=== PATIENT | female | born 1970 | race Caucasian/White ===

== ENCOUNTER 2018-07-05 01:00 | Inpatient (IN) | payer SELFPAY ==
[~2018-07-05] VITALS: Ht 152.4 cm; Wt 80.5 kg
[2018-07-05] VITALS (26 sets, daily range): BP systolic 112–143; BP diastolic 61–87; BMI 29.2
[2018-07-05 01:49] LABS: HEMOGLOBIN 8.8 g/dL (12-16); MCH 28.8 pg (26.0-34.0); MCHC 30.3 g/dL (31.0-37.0); MCV 94.8 fL (80.0-100.0); PLATELET COUNT 94 10x3/uL (130-400); RBC 3.06 10x6/uL (4.00-5.40); WBC 2.8 10x3/uL (4.8-10.8)
[2018-07-05 02:15] LABS: ALBUMIN 1.5 g/dL (3.4-5.0); ALKALINE PHOSPHATASE 68 U/L (46-116); ALT (SGPT) 23 U/L (10-68); BILIRUBIN - TOTAL 0.15 mg/dL (0.2-1.3); C-REACTIVE PROTEIN 1.1 mg/dL (0.0-0.9); CALC OSMOLALITY 309 mosm/kg (275-300); CARBON DIOXIDE 21.2 mmol/L (21.0-32.0); CHLORIDE - SERUM 114 mmol/L (98-107); CREATININE - SERUM 3.6 mg/dL (0.6-1.3); GLUCOSE 152 mg/dL (74-106); MAGNESIUM - SERUM 3.1 mg/dL (1.8-2.4); PRO BNP 3208 pg/mL (0-125); PROTEIN - SERUM 5.3 g/dL (6.4-8.2); SODIUM 146 mmol/L (136-145); THYROID STIMULATING HORMONE 3.82 uIU/mL (0.36-3.74); UREA NITROGEN 58 mg/dL (7-18); eGFR NON AFRICAN AMERICAN 14 mL/min (90-120)
[2018-07-05 02:17] LABS: POTASSIUM - SERUM 6.4 mmol/L (3.5-5.1); TROPONIN-I < 0.017 ng/mL (0.000-0.060)
[2018-07-05 02:24] LABS: LYMPHOCYTES 16 % (15-50); MONOCYTES 12 % (2-11); NEUTROPHILS 72 % (40-80)
[2018-07-05 02:25] LABS: PLATELET ESTIMATE DECREASED
[2018-07-05 06:28] LABS: CARBON DIOXIDE 20.8 mmol/L (21.0-32.0); CHLORIDE - SERUM 115 mmol/L (98-107); CREATININE - SERUM 3.6 mg/dL (0.6-1.3); SODIUM 146 mmol/L (136-145); UREA NITROGEN 57 mg/dL (7-18); eGFR NON AFRICAN AMERICAN 14 mL/min (90-120)
[2018-07-05 06:42] LABS: CALC OSMOLALITY 306 mosm/kg (275-300); GLUCOSE 100 mg/dL (74-106); TROPONIN-I < 0.017 ng/mL (0.000-0.060)
[2018-07-05 06:45] LABS: CALCIUM 6.9 mg/dL (8.5-10.1)
[2018-07-05 11:29] LABS: CREATININE - SERUM 3.5 mg/dL (0.6-1.3)
[2018-07-05 11:35] LABS: ANION GAP 13.1 mmol/L (8-16); CALCIUM 6.8 mg/dL (8.5-10.1); POTASSIUM - SERUM 6.1 mmol/L (3.5-5.1)
[2018-07-05 18:34] LABS: % SATURATION 29 % (15-55); IRON 65 ug/dl (35-150); TOTAL IRON BIND CAPACITY 221 ug/dl (260-445); UNSAT IRON BIND CAPACITY 156 ug/dl (150-375)
[2018-07-05 20:23] LABS: CARBON DIOXIDE 23.3 mmol/L (21.0-32.0); CREATININE - SERUM 3.4 mg/dL (0.6-1.3)
[2018-07-05 20:27] LABS: POTASSIUM - SERUM 6.3 mmol/L (3.5-5.1)
[2018-07-05 20:28] LABS: CALCIUM 6.9 mg/dL (8.5-10.1)
[2018-07-06] VITALS (24 sets, daily range): BP systolic 134–159; BP diastolic 81–90; Ht 152.4 cm; Wt 80.5 kg
[2018-07-06 04:33] LABS: HEMATOCRIT 26.6 % (36.0-48.0); HEMOGLOBIN 8.1 g/dL (12-16); MCH 28.2 pg (26.0-34.0); MCHC 30.5 g/dL (31.0-37.0); MEAN PLATELET VOLUME 12.5 fL (7.4-10.4); PLATELET COUNT 104 10x3/uL (130-400); RBC 2.87 10x6/uL (4.00-5.40); RDW 16.7 % (11.5-14.5); WBC 2.7 10x3/uL (4.8-10.8)
[2018-07-06 04:49] LABS: MCV 92.7 fL (80.0-100.0)
[2018-07-06 04:53] LABS: ANION GAP 11.6 mmol/L (8-16); BILIRUBIN - TOTAL 0.24 mg/dL (0.2-1.3); CARBON DIOXIDE 25.8 mmol/L (21.0-32.0); CREATININE - SERUM 3.3 mg/dL (0.6-1.3); POTASSIUM - SERUM 5.4 mmol/L (3.5-5.1); PROTEIN - SERUM 5.1 g/dL (6.4-8.2)
[2018-07-06 04:54] LABS: CALCIUM 6.6 mg/dL (8.5-10.1)
[2018-07-06 05:32] LABS: EOSINOPHILS 2 % (0-7); LYMPHOCYTES 21 % (15-50); MONOCYTES 3 % (2-11); NEUTROPHILS 74 % (40-80); PLATELET ESTIMATE DECREASED
[2018-07-06 06:23] LABS: MAGNESIUM - SERUM 2.9 mg/dL (1.8-2.4); PHOSPHOROUS 5.2 mg/dL (2.5-4.9)
[2018-07-06 11:39] LABS: PATH REVIEW PERIPHERAL SMEAR REVIEWED
--- NOTE | 2018-07-06 17:25 | MORECARE ---
CASE MANAGEMENT DISCHARGE SUMMARY PATIENT: BERNA MARQUEZ UNIT: [id number] ADM DATE: 07/05/18 AGE: 48 : 74 SEX: F ROOM/BED: D.[facility] AUTHOR: JARET SHAY PHYSICIAN: REFERRING PHYSICIAN: KIN CAICEDO MD DATE OF SERVICE: 07/06/18 Discharge Plan Patient Name: BERNA MARQUEZ Facility: [facility]:[place] : 1970 Planned Disposition: Anticipated Discharge Date: Discharge Date: Expected LOS: Initial Reviewer: [email or web address] Initial Review Date: 07/06/2018 Generated: 07/06/18 6:25 pm DCPIA - Discharge Planning Initial Assessment Updated by [email or web address]: Chloe Hampton on 07/06/18 5:25 pm * Is the patient Alert and Oriented? No * How many steps to enter\exit or inside your home? * PCP no PCP * Pharmacy [facility] * Preadmission Environment Home with Family * ADLs Independent * Equipment Wheelchair * List name and contact numbers for known caregivers / representatives who currently or will assist patient after discharge: HENRIQUE CLINTON - FRIEND- [phone] BRITTNEY Villaseñor DAUGHTER- [phone] * Verbal permission to speak to the caregivers and representatives has been obtained from the patient. N/A * Community resources currently utilized None * Additional services required to return to the preadmission environment? No * Can the patient safely return to the preadmission environment? Yes * Has this patient been hospitalized within the prior 30 days at any hospital? No Patient Name: BERNA MARQUEZ Page 66585 at 1725 All edits/amendments must be made on the electronic document DICTATION DATE: 07/06/181724 SMALL ELECTRIC ENGINE TECHNICIAN: STEFAN 07/06/181724 RPT#: [id number] DC DATE: STATUS: ADM IN [facility] [address] [place] [address] END OF REPORT
--- NOTE | 2018-07-06 17:41 | MORECARE ---
CASE MANAGEMENT DISCHARGE SUMMARY PATIENT: BERNA MARQUEZ UNIT: [id number] ADM DATE: 07/05/18 AGE: 48 : 74 SEX: F ROOM/BED: D.2316 AUTHOR: LAURITA,DOC PHYSICIAN: REFERRING PHYSICIAN: KIN CAICEDO MD DATE OF SERVICE: 07/06/18 Discharge Plan Patient Name: BERNA MARQUEZ Facility: [facility]:[place] : 1970 Planned Disposition: Anticipated Discharge Date: Discharge Date: Expected LOS: Initial Reviewer: [email or web address] Initial Review Date: 07/06/2018 Generated: 07/06/18 6:40 pm Comments DCP- Discharge Planning Updated by [email or web address]: Chloe Hampton on 07/06/18 4:[address] Patient Name: BERNA MARQUEZ Admission Status: ER Accout number: [id number] Admission Date: 07-05-2018 : 1970 Admission Diagnosis: Attending: KIN CAICEDO Current LOS: 1 Anticipated DC Date: Planned Disposition: Primary Insurance: UNINSURED DISCOUNT PLAN Discharge Planning Comments: CM met with patients daughter Tanya at bedside. Patient not responsive at this time. Tanya her young daughter is at bedside with her brother. Patients daughter stated that patient lived at home with them. She stated the patient does have a wheelchair. Denies any home health services. Uncertain of disposition at this time. CM will continue to follow and assist as needed with discharge planning / needs. Automated Equipment Engineer Technician: Chloe Hampton DCPIA - Discharge Planning Initial Assessment Updated by [email or web address]: Chloe Hampton on 07/06/18 5:25 pm * Is the patient Alert and Oriented? No * How many steps to enter\exit or inside your home? * PCP no PCP * Pharmacy [facility] * Preadmission Environment Home with Family * ADLs Independent * Equipment Wheelchair * List name and contact numbers for known caregivers / representatives who currently or will assist patient after discharge: HENRIQUE CLINTON - FRIEND- [phone] TANYA Villaseñor DAUGHTER- [phone] * Verbal permission to speak to the caregivers and representatives has been obtained from the patient. N/A * Community resources currently utilized None * Additional services required to return to the preadmission environment? No * Can the patient safely return to the preadmission environment? Yes * Has this patient been hospitalized within the prior 30 days at any hospital? No Last DP export: 07/06/18 4:25 pm Patient Name: BERNA MARQUEZ Page 35827 at 1741 All edits/amendments must be made on the electronic document DICTATION DATE: 07/06/181739 SOLUTION LEAD: DM 07/06/181739 RPT#: [id number] DC DATE: STATUS: ADM IN [facility] [address] [place] [address] END OF REPORT
[2018-07-06 20:03] LABS: T4 THYROXIN - FREE 0.9 ng/dL (0.76-1.46); T4 THYROXINE 5.2 ug/dL (4.7-13.3); THYROID STIMULATING HORMONE 1.63 uIU/mL (0.36-3.74)
[2018-07-06 21:27] LABS: ERYTHROCYTE SEDIMENTATION RATE 12 mm/hr (0-20)
[2018-07-06 21:33] LABS: HEMATOCRIT 26.2 % (36.0-48.0); HEMOGLOBIN 8.1 g/dL (12-16)
[2018-07-06 22:35] LABS: APPEARANCE CLEAR (CLEAR); BILIRUBIN NEGATIVE (NEGATIVE); COLOR STRAW (YELLOW); GLUCOSE 50 mg/dL (NEGATIVE); KETONE NEGATIVE (NEGATIVE); NITRITE NEGATIVE (NEGATIVE); PROTEIN 1+ mg/dL (NEGATIVE); UROBILINOGEN NORMAL (NORMAL)
[2018-07-06 23:09] LABS: CREATININE - URINE 30.5 mg/dL (30-125); PRO/CRE RATIO URINE 6.5 mg/g; PROTEIN - URINE 198.6 mg/dL (0.0-11.9)
[2018-07-07] VITALS (16 sets, daily range): BP systolic 137–163; BP diastolic 74–93
[2018-07-07 00:44] LABS: HEMATOCRIT 24.1 % (36.0-48.0)
[2018-07-07 00:50] LABS: HEMOGLOBIN 7.5 g/dL (12-16)
[2018-07-07 06:01] LABS: ALBUMIN 2.3 g/dL (3.4-5.0); ANION GAP 12.1 mmol/L (8-16); BILIRUBIN - TOTAL 0.38 mg/dL (0.2-1.3); CARBON DIOXIDE 28.8 mmol/L (21.0-32.0); CREATININE - SERUM 3.1 mg/dL (0.6-1.3); POTASSIUM - SERUM 4.9 mmol/L (3.5-5.1); PROTEIN - SERUM 5.2 g/dL (6.4-8.2)
[2018-07-07 06:04] LABS: BASOPHILS 0 % (0-2); EOSINOPHILS 2.5 % (0-7); HEMATOCRIT 27.6 % (36.0-48.0); HEMOGLOBIN 8.6 g/dL (12-16); IMMATURE GRANULOCYTES 0.3 % (0-5); LYMPHOCYTES 13.1 % (15-50); MCH 28.4 pg (26.0-34.0); MCHC 31.2 g/dL (31.0-37.0); MCV 91.1 fL (80.0-100.0); MEAN PLATELET VOLUME 11.5 fL (7.4-10.4); NEUTROPHILS 75.1 % (40-80); PLATELET COUNT 96 10x3/uL (130-400); RBC 3.03 10x6/uL (4.00-5.40); RDW 16.1 % (11.5-14.5); WBC 3.7 10x3/uL (4.8-10.8)
[2018-07-07 06:18] LABS: CALCIUM 6.8 mg/dL (8.5-10.1)
[2018-07-07 07:15] LABS: PLATELET ESTIMATE DECREASED
[2018-07-07 08:22] LABS: FOLATE (FOLIC ACID) - SERUM 11.2 ng/mL (>3.0)
[2018-07-07 10:20] LABS: HEMATOCRIT 33.2 % (36.0-48.0); HEMOGLOBIN 10.5 g/dL (12-16)
[2018-07-07 10:35] LABS: APTT 36.6 SECONDS (22.8-39.4); INR 1.1 (0.85-1.17); PROTIME 13.7 SECONDS (11.6-15.0)
[2018-07-07 14:44] LABS: HEMATOCRIT 31.2 % (36.0-48.0); HEMOGLOBIN 9.9 g/dL (12-16)
[2018-07-07 18:44] LABS: HEMATOCRIT 30.5 % (36.0-48.0); HEMOGLOBIN 9.7 g/dL (12-16)
[2018-07-07 23:16] LABS: HEMATOCRIT 31.2 % (36.0-48.0); HEMOGLOBIN 9.8 g/dL (12-16)
[2018-07-08 03:00] VITALS: BP 155/106
[2018-07-08 04:37] LABS: BASOPHILS 0 % (0-2); EOSINOPHILS 1.7 % (0-7); HEMATOCRIT 32.2 % (36.0-48.0); IMMATURE GRANULOCYTES 0.3 % (0-5); LYMPHOCYTES 15.5 % (15-50); MCH 28.2 pg (26.0-34.0); MCHC 31.1 g/dL (31.0-37.0); MONOCYTES 8.9 % (2-11); NEUTROPHILS 73.6 % (40-80); PLATELET COUNT 77 10x3/uL (130-400); RBC 3.54 10x6/uL (4.00-5.40); RDW 17.6 % (11.5-14.5); WBC 3.6 10x3/uL (4.8-10.8)
[2018-07-08 05:06] LABS: ANION GAP 13.1 mmol/L (8-16); BILIRUBIN - TOTAL 0.36 mg/dL (0.2-1.3); CARBON DIOXIDE 27.2 mmol/L (21.0-32.0); CREATININE - SERUM 2.9 mg/dL (0.6-1.3); POTASSIUM - SERUM 4.3 mmol/L (3.5-5.1); PROTEIN - SERUM 5.6 g/dL (6.4-8.2)
[2018-07-08 05:13] LABS: ALBUMIN 2.7 g/dL (3.4-5.0)
[2018-07-08 09:19] LABS: HEPATITIS C ANTIBODY <0.1 S/CO RAT (0.0-0.9)
[2018-07-08 09:45] VITALS: BP 145/89
[2018-07-08 16:12] LABS: UPE RAND - ALBUMIN 49.2 % (()); UPE RAND - GAMMA GLOBULIN 15.9 % (())
[2018-07-08 16:12] LABS: SPE - A/G RATIO 1.2 (0.7-1.7); SPE - ALBUMIN 2.7 g/dL (2.9-4.4); SPE - ALPHA-1 GLOBULIN 0.3 g/dL (0.0-0.4); SPE - ALPHA-2 GLOBULIN 0.4 g/dL (0.4-1.0); SPE - BETA GLOBULIN 0.6 g/dL (0.7-1.3); SPE - GAMMA GLOBULIN 0.9 g/dL (0.4-1.8); SPE - M-SPIKE Not Observed g/dL (Not Observed); SPE - TOTAL PROTEIN 4.9 g/dL (6.0-8.5)
[2018-07-08 20:00] VITALS: BP 148/74
[2018-07-09] VITALS (20 sets, daily range): BP systolic 147–178; BP diastolic 56–85
[2018-07-09 05:34] LABS: BASOPHILS 0.2 % (0-2); EOSINOPHILS 1.5 % (0-7); HEMATOCRIT 32.8 % (36.0-48.0); HEMOGLOBIN 10.2 g/dL (12-16); IMMATURE GRANULOCYTES 0.2 % (0-5); LYMPHOCYTES 11.1 % (15-50); MCH 28.7 pg (26.0-34.0); MCHC 31.1 g/dL (31.0-37.0); MCV 92.4 fL (80.0-100.0); MEAN PLATELET VOLUME 9.9 fL (7.4-10.4); MONOCYTES 10.7 % (2-11); NEUTROPHILS 76.3 % (40-80); RBC 3.55 10x6/uL (4.00-5.40); RDW 17.4 % (11.5-14.5)
[2018-07-09 05:35] LABS: WBC 4.6 10x3/uL (4.8-10.8)
[2018-07-09 05:36] LABS: PLATELET COUNT 48 10x3/uL (130-400)
[2018-07-09 05:49] LABS: ALBUMIN 2.4 g/dL (3.4-5.0); ANION GAP 15.7 mmol/L (8-16); BILIRUBIN - TOTAL 0.36 mg/dL (0.2-1.3); CALCIUM 7.5 mg/dL (8.5-10.1); CARBON DIOXIDE 26.5 mmol/L (21.0-32.0); CREATININE - SERUM 2.8 mg/dL (0.6-1.3); POTASSIUM - SERUM 4.2 mmol/L (3.5-5.1); PROTEIN - SERUM 5.4 g/dL (6.4-8.2)
[2018-07-09 06:44] LABS: PLATELET ESTIMATE DECREASED
[2018-07-09 10:32] LABS: HEMOGLOBIN 10.1 g/dL (12-16)
[2018-07-09 11:40] LABS: AMYLASE - SERUM 39 U/L (25-115); LIPASE 88 U/L (73-393)
--- NOTE | 2018-07-09 12:22 | EC ---
PATIENT:BERNA MARQUEZ DATE OF SERVICE: 07/05/18 SEX: F MEDICAL RECORD: [id number] DATE OF : 74 LOCATION:[place] [address] AGE OF PATIENT: 48 ADMISSION DATE: 07/05/18 REFERRING PHYSICIAN: INTERPRETING PHYSICIAN: KALEE VASQUES MD ECHOCARDIOGRAM REPORT ECHO CHARGES 4 ECHO COMPLETE Date: 07/05/18 CLINICAL DIAGNOSIS: ECHOCARDIOGRAPHIC MEASUREMENTS (adult normal given) AC root (d.<3.7cm) 2.7 cm LV Septum d (<1.2 cm> 1.7 cm Valve Excursion 1.6 cm LV Septum (systole) 2.0 cm Left Atria (s.<4.0cm> 4.0 cm LVPW d(<1.2cm) 1.2 cm RV (d.<2.3cm) 2.4 cm LVPW (sytole) 2.5 cm LV diastole(<5.6CM) 5.3 cm MV E-F(>70mm/sec) cm LV systole 1.7 cm LVOT Diameter 1.7 cm MV exc.(>10mm) cm Est.ejection fraction (50-75%) % DOPPLER: LVIT cm/sec A 79 cm/sec E 121 cm/sec LA cm/sec RVSP 39.7 mmHg LVOT 99 cm/sec AOP1/2T m/s Asc. Ao 153 cm/sec RVOT 57 cm/sec RA cm/sec PA 70 cm/sec AV Gradient Peak 9.3 mmHg AV Mean 4.4 mmHg AV Area 1.5 cm MV Gradient Peak 6.4 mmHg MV Mean 2.4 mmHg MV Area cm COMMENTS: Senior Engineering Manager: Yessica CALL Pouch Maker: 3 Dr. Lovett TAPE# PACS Pericardial Effusion Y DATE OF SERVICE: Adequate 2D, color flow and spectral Doppler, and M-mode. LVH present. LV internal dimensions normal. Wall motion is normal. EF is greater than 55%. Aortic valve sclerosis without stenosis by Doppler interrogation. Left atrium upper limits of normal 4.0 cm. Mitral valve shows no prolapse. Ktyq-hw-belmzykw MR. Right-sided chambers grossly normal. Moderate TR. ECHOCARDIOGRAM REPORT [id number] BERNA MARQUEZ TRANSINT:[id number] Voice Confirmation ID: [id number] DOCUMENT ID: [id number] KALEE VASQUES MD at 1222 CC: [id number] DICTATION DATE: 07/06/1834 B2B OUTSIDE SALES REPRESENTATIVE: 07/06/18 09 ADM IN [place] [id number] [place] [id number]
[2018-07-09 13:00] LABS: APTT 36.4 SECONDS (22.8-39.4)
[2018-07-09 13:15] LABS: INR 1.15 (0.85-1.17); PROTIME 14.1 SECONDS (11.6-15.0)
[2018-07-09 15:14] LABS: ANION GAP 13.8 mmol/L (8-16); CALCIUM 7.5 mg/dL (8.5-10.1); CARBON DIOXIDE 26.1 mmol/L (21.0-32.0); CREATININE - SERUM 2.6 mg/dL (0.6-1.3); POTASSIUM - SERUM 3.9 mmol/L (3.5-5.1)
--- NOTE | 2018-07-09 19:01 | MORECARE ---
CASE MANAGEMENT DISCHARGE SUMMARY PATIENT: BERNA GARCIA UNIT: [id number] ADM DATE: 07/05/18 AGE: 48 : 74 SEX: F [facility] AUTHOR: LAURITA,DOC PHYSICIAN: REFERRING PHYSICIAN: KIN CAICEDO MD DATE OF SERVICE: 07/09/18 Discharge Plan Patient Name: BERNA GARCIA Facility: [facility]:[place] : 1970 Planned Disposition: Anticipated Discharge Date: Discharge Date: Expected LOS: Initial Reviewer: [email or web address] Initial Review Date: 07/06/2018 Generated: 07/09/18 8:01 pm Comments DCP- Discharge Planning Updated by [email or web address]: Chloe Hampton on 07/09/18 5:[address] CM notified that patient has referral for rehab for patient. Patient doesn't have any insurance will have difficulty finding placement. Patient has two minor children that lives with her. The patient and the minors are the only ones living in the home. Patients is incarcerated currently. Patients dynamometer tester engine has been bringing the children up to stay with patient. Shoe Shiner has been instructed that the minors can't be left at facility. CM will continue to follow and assist as needed with discharge planning / needs. DCP- Discharge Planning Updated by [email or web address]: Chloe Hampton on 07/06/18 4:[address] Patient Name: BENRA MARQUEZ Admission Status: ER Accout number: [id number] Admission Date: 07-05-2018 : 1970 Admission Diagnosis: Attending: KIN CAICEDO Current LOS: 1 Anticipated DC Date: Planned Disposition: Primary Insurance: UNINSURED DISCOUNT PLAN Discharge Planning Comments: CM met with patients daughter Tanya at bedside. Patient not responsive at this time. Nixxie her young daughter is at bedside with her brother. Patients daughter stated that patient lived at home with them. She stated the patient does have a wheelchair. Denies any home health services. Uncertain of disposition at this time. CM will continue to follow and assist as needed with discharge planning / needs. Surveyor Hydrographic: Chloe Hampton DCPIA - Discharge Planning Initial Assessment Updated by [email or web address]: Chloe Berta on 07/06/18 5:25 pm * Is the patient Alert and Oriented? No * How many steps to enter\exit or inside your home? * PCP no PCP * Pharmacy [facility] * Preadmission Environment Home with Family * ADLs Independent * Equipment Wheelchair * List name and contact numbers for known caregivers / representatives who currently or will assist patient after discharge: HENRIQUE CLINTON - CAROLINE- [phone] TANYA SERNA- [phone] * Verbal permission to speak to the caregivers and representatives has been obtained from the patient. N/A * Community resources currently utilized None * Additional services required to return to the preadmission environment? No * Can the patient safely return to the preadmission environment? Yes * Has this patient been hospitalized within the prior 30 days at any hospital? No Last DP export: 07/06/18 4:40 pm Patient Name: BERNA GARCIA Page 21310 at 1901 All edits/amendments must be made on the electronic document DICTATION DATE: 07/09/181900 TEACHER OF THE DEAF/HARD OF HEARING: STEFAN 07/09/181900 RPT#: [id number] DC DATE: STATUS: ADM IN [facility] [address] [place] [address] END OF REPORT
[2018-07-10] VITALS (24 sets, daily range): BP systolic 140–183; BP diastolic 62–78
[2018-07-10 03:25] LABS: BASOPHILS 0.3 % (0-2); EOSINOPHILS 2.1 % (0-7); HEMATOCRIT 31.9 % (36.0-48.0); HEMOGLOBIN 9.7 g/dL (12-16); LYMPHOCYTES 13.5 % (15-50); MCH 28.6 pg (26.0-34.0); MCHC 30.4 g/dL (31.0-37.0); MCV 94.1 fL (80.0-100.0); MEAN PLATELET VOLUME 11.3 fL (7.4-10.4); MONOCYTES 12.7 % (2-11); NEUTROPHILS 71.4 % (40-80); PLATELET COUNT 76 10x3/uL (130-400); RBC 3.39 10x6/uL (4.00-5.40); RDW 17.4 % (11.5-14.5); WBC 3.9 10x3/uL (4.8-10.8)
[2018-07-10 03:41] LABS: ALBUMIN 2.8 g/dL (3.4-5.0); ANION GAP 15.6 mmol/L (8-16); BILIRUBIN - TOTAL 0.43 mg/dL (0.2-1.3); CALCIUM 7.7 mg/dL (8.5-10.1); CREATININE - SERUM 2.7 mg/dL (0.6-1.3); POTASSIUM - SERUM 3.6 mmol/L (3.5-5.1); PROTEIN - SERUM 5.7 g/dL (6.4-8.2)
[2018-07-10 08:16] LABS: RAPID PLASMA REAGIN Non Reactive (Non Reactive)
[2018-07-10 14:12] LABS: CA125 169.4 U/mL (0.0-38.1); CEA 1.2 ng/mL (0.0-4.7)
[2018-07-10] MEDS ORDERED: METOPROLOL TART50 MG PO (16:42)
[2018-07-10] MEDS ORDERED: NORVASC10 MG PO (16:43)
[2018-07-10] MEDS ORDERED: LASIX20 MG PO (16:44)
[2018-07-10] MEDS ORDERED: GLIMEPIRIDE4 MG PO (16:45)
[2018-07-10] MEDS ORDERED: CENTRUM SILVER1 EAC3 PO (16:46)
[2018-07-10] MEDS ORDERED: ADVIL200 MG PO (16:46)
[2018-07-10] MEDS ORDERED: PEPTO-BISMOL262 M1 PO (16:48)
[2018-07-10] MEDS ORDERED: COMBIGAN OPHT DR5 ML EACH EYE (16:48)
--- NOTE | 2018-07-10 17:16 | MORECARE ---
CASE MANAGEMENT DISCHARGE SUMMARY PATIENT: BERNA GARCIA UNIT: [id number] ADM DATE: 07/05/18 AGE: 48 : 74 SEX: F ROOM/BED: [facility] AUTHOR: LAURITA,DOC PHYSICIAN: REFERRING PHYSICIAN: KIN CAICEDO MD DATE OF SERVICE: 07/10/18 Discharge Plan Patient Name: BERNA GARCIA Facility: [facility]:[place] : 1970 Planned Disposition: Anticipated Discharge Date: Discharge Date: Expected LOS: Initial Reviewer: [email or web address] Initial Review Date: 07/06/2018 Generated: 07/10/18 6:16 pm Comments DCP- Discharge Planning Updated by [email or web address]: Joanne Garrison on 07/10/18 4:[address] Patient is unable to sign the Patient Choice form for choices of transfer. (patient's son) Shanthi Novoa signed The Patient Choice form with #1 [facility] and #2 [facility] for a higher level of care. Nursing has contacted the facilities for transfer. Joanne Garrison RN CM DCP- Discharge Planning Updated by [email or web address]: Chloe Hampton on 07/09/18 5:[address] CM notified that patient has referral for rehab for patient. Patient doesn't have any insurance will have difficulty finding placement. Patient has two minor children that lives with her. The patient and the minors are the only ones living in the home. Patients is incarcerated currently. Patients crystal grower has been bringing the children up to stay with patient. Language Tutor has been instructed that the minors can't be left at facility. CM will continue to follow and assist as needed with discharge planning / needs. DCP- Discharge Planning Updated by [email or web address]: Chloe Hampton on 07/06/18 4:[address] Patient Name: BERNA MARQUEZ Admission Status: ER Accout number: [id number] Admission Date: 07-05-2018 : 1970 Admission Diagnosis: Attending: KIN CAICEDO Current LOS: 1 Anticipated DC Date: Planned Disposition: Primary Insurance: UNINSURED DISCOUNT PLAN Discharge Planning Comments: CM met with patients daughter Nixxie at bedside. Patient not responsive at this time. Nixxie her young daughter is at bedside with her brother. Patients daughter stated that patient lived at home with them. She stated the patient does have a wheelchair. Denies any home health services. Uncertain of disposition at this time. CM will continue to follow and assist as needed with discharge planning / needs. Qlikview Developer: Chloe Hampton DCPIA - Discharge Planning Initial Assessment Updated by [email or web address]: Chloe Hampton on 07/06/18 5:25 pm * Is the patient Alert and Oriented? No * How many steps to enter\exit or inside your home? * PCP no PCP * Pharmacy [facility] * Preadmission Environment Home with Family * ADLs Independent * Equipment Wheelchair * List name and contact numbers for known caregivers / representatives who currently or will assist patient after discharge: HENRIQUE CLINTON - FRIEND- [phone] BRITTNEY - DAUGHTER- [phone] * Verbal permission to speak to the caregivers and representatives has been obtained from the patient. N/A * Community resources currently utilized None * Additional services required to return to the preadmission environment? No * Can the patient safely return to the preadmission environment? Yes * Has this patient been hospitalized within the prior 30 days at any hospital? No Last DP export: 07/09/18 6:01 pm Patient Name: BERNA GARCIA Page 76207 at 1716 All edits/amendments must be made on the electronic document DICTATION DATE: 07/10/181715 SUBMARINE DIVER: STEFAN 07/10/181715 RPT#: [id number] DC DATE: STATUS: ADM IN [facility] [address] [place] [address] END OF REPORT
[2018-07-11] VITALS: BP 175/73
[2018-07-12 11:14] LABS: CRYPTOCOCCUS AG - SERUM Negative (Negative)
[2018-07-12 12:12] LABS: ANA REFLEX - DIRECT Negative (Negative)
[2018-07-12 13:13] LABS: WNVS - IGG Negative (Negative); WNVS - IGM Negative (Negative)
--- NOTE | 2018-07-12 14:37 | MORECARE ---
CASE MANAGEMENT DISCHARGE SUMMARY PATIENT: BERNA GARCIA UNIT: [id number] ADM DATE: 07/05/18 AGE: 48 : 74 SEX: F ROOM[facility]ED: [facility] AUTHOR: LAURITA,DOC PHYSICIAN: REFERRING PHYSICIAN: KIN CAICEDO MD DATE OF SERVICE: 07/12/18 Discharge Plan Patient Name: BERNA GARCIA Facility: [facility]:[place] : 1970 Planned Disposition: Anticipated Discharge Date: Discharge Date: 07/11/2018 Expected LOS: Initial Reviewer: [email or web address] Initial Review Date: 07/06/2018 Generated: 07/12/18 3:37 pm Comments DCP- Discharge Planning Updated by [email or web address]: Joanne Garrison on 07/10/18 4:[address] Patient is unable to sign the Patient Choice form for choices of transfer. (patient's son) Shanthi Novoa signed The Patient Choice form with #1 [facility] and #2 [facility] for a higher level of care. Nursing has contacted the facilities for transfer. Joanne Garrison RN CM DCP- Discharge Planning Updated by [email or web address]: Chloe Hampton on 07/09/18 5:[address] CM notified that patient has referral for rehab for patient. Patient doesn't have any insurance will have difficulty finding placement. Patient has two minor children that lives with her. The patient and the minors are the only ones living in the home. Patients is incarcerated currently. Patients superior court clerk has been bringing the children up to stay with patient. Customer Program Manager has been instructed that the minors can't be left at facility. CM will continue to follow and assist as needed with discharge planning / needs. DCP- Discharge Planning Updated by [email or web address]: Chloe Hampton on 07/06/18 4:[address] Patient Name: BERNA MARQUEZ Admission Status: ER Accout number: [id number] Admission Date: 07-05-2018 : 1970 Admission Diagnosis: Attending: KIN CAICEDO Current LOS: 1 Anticipated DC Date: Planned Disposition: Primary Insurance: UNINSURED DISCOUNT PLAN Discharge Planning Comments: CM met with patients daughter Tanya at bedside. Patient not responsive at this time. Tanya her young daughter is at bedside with her brother. Patients daughter stated that patient lived at home with them. She stated the patient does have a wheelchair. Denies any home health services. Uncertain of disposition at this time. CM will continue to follow and assist as needed with discharge planning / needs. Recovery Assistant: Chloe BUCKLEY - Discharge Planning Initial Assessment Updated by [email or web address]: Chloe Hampton on 07/06/18 5:25 pm * Is the patient Alert and Oriented? No * How many steps to enter\exit or inside your home? * PCP no PCP * Pharmacy [facility] * Preadmission Environment Home with Family * ADLs Independent * Equipment Wheelchair * List name and contact numbers for known caregivers / representatives who currently or will assist patient after discharge: HENRIQUE CLINTON - CAROLINE- [phone] TANYA Villaseñor DAUGHTER- [phone] * Verbal permission to speak to the caregivers and representatives has been obtained from the patient. N/A * Community resources currently utilized None * Additional services required to return to the preadmission environment? No * Can the patient safely return to the preadmission environment? Yes * Has this patient been hospitalized within the prior 30 days at any hospital? No Coverage Notice Reviewer: [email or web address] Kasi Garrison Notice Issued Date-Time: 07/12/2018 10:40 Notice Type: Patient Choice Letter Notice Delivered To: Family Member Relationship to Patient: Child No Finc Resp Manager Labor Relations Name: Shanthi Novoa Delivery Method: HAND - Hand Delivered Janette Days: Prior Verbal Notification: Recipient Understood Notice: Recipient Signature: Med Rec Note Co-signed by Attending: Coverage Notice Comment: Last DP export: 07/10/18 4:16 pm Patient Name: BERNA GARCIA Page 80703 at 1437 All edits/amendments must be made on the electronic document DICTATION DATE: 07/12/181435 EMPLOYEE BENEFITS DIRECTOR: STEFAN 07/12/181435 RPT#: [id number] DC DATE:07/11/18 STATUS: DIS IN [facility] [address] [place] [address] END OF REPORT
[2018-07-12 15:16] LABS: LUPUS - INTERPRETATION Comment: (()); LUPUS - dRVVT 41.8 sec (0.0-47.0); PTT-LA 47.8 sec (0.0-51.9)
[2018-07-13 03:10] LABS: RMSF IGM 0.56 index (0.00-0.89)
[2018-07-13 10:18] LABS: VIABILITY: 98% (())
== END 2018-07-11 02:16 | disposition short-term general hospital (02) | DRG 682 ==
LOC: D.ER 01:00 → D.ICU 04:51 → D.CVICU 04:51 → D.EDHOLD 04:51 → D.ICU 07:00 → D.M2 07-08 07:57 → D.CVICU 07-09 03:46
PROVIDERS: Family Medicine; Internal Medicine; Internal Medicine Hematology & Oncology; Internal Medicine Nephrology; Internal Medicine Pulmonary Disease; Specialist; ADMIT Internal Medicine Nephrology
DX: N17.9 Acute kidney failure, unspecified (principal); G93.41 Metabolic encephalopathy; R53.2 Functional quadriplegia; R18.8 Other ascites; J90 Pleural effusion, not elsewhere classified; G93.40 Encephalopathy, unspecified; D61.818 Other pancytopenia; E87.2 Acidosis; E87.0 Hyperosmolality and hypernatremia; E87.5 Hyperkalemia; E87.70 Fluid overload, unspecified; E88.09 Other disorders of plasma-protein metabolism, not elsewhere classified; E83.51 Hypocalcemia; E11.65 Type 2 diabetes mellitus with hyperglycemia; H54.8 Legal blindness, as defined in USA; R68.0 Hypothermia, not associated with low environmental temperature; Z78.1 Physical restraint status; E11.319 Type 2 diabetes mellitus with unspecified diabetic retinopathy without macular edema; R40.2364 Coma scale, best motor response, obeys commands, 24 hours or more after hospital admission; R40.2134 Coma scale, eyes open, to sound, 24 hours or more after hospital admission; R40.2244 Coma scale, best verbal response, confused conversation, 24 hours or more after hospital admission; D64.9 Anemia, unspecified

== ENCOUNTER 2018-07-27 20:02 | Inpatient (IN) | payer SELFPAY ==
[~2018-07-27] VITALS: Ht 152.4 cm; Wt 62.8 kg
--- NOTE | ~2018-07-27 | HEMODYNAMI ---
PATIENT:BERNA GARCIA MEDICAL RECORD: [id number] : 74 LOCATION:D.MS Winter2230 ADMISSION DATE: 07/27/18 Generatedon:08/13/201812:51 Patient name: BERNA GARCIA Patient #: [id number] SSN: : 1970 Date of study: 08/13/2018 Page: Of Hemodynamic Procedure Report Patient Data Patient Demographics Procedure consent was obtained First Name: BERNA Gender: Female Last Name: JOSE : 1970 Patient #: [id number] Age: 48 year(s) Race: Unknown Additional ID: [id number] Contact details Address: [address] [place] [address] [place] [place] [facility] Zip code: [address] Admission Admission Data Admission Date: 07/27/2018 Admission Time: 22:52 Room #: D.2230 Procedure Procedure Types Cath Procedure Diagnostic Procedure RAYMOND Procedure Description Procedure Date Procedure Date: 08/13/2018 Procedure Start Time: 12:43 Procedure End Time: 12:48 Procedure Staff Name Function Mich Aguero MD Performing Physician Jody Dudley RN Nurse Marcio Ness RT Monitor Pedro Cartagena Lieutenant Fire Fighter Mynor Smith MD Additional personnel Procedure Data Cath Procedure Fluoroscopy Diagnostic fluoroscopy Total fluoroscopy Time: 0 time: 0 min min Diagnostic fluoroscopy Total fluoroscopy dose: 0 dose: 0 mGy mGy Contrast Material Contrast Material Type Amount (ml) Isovue 300 0 Estimated blood loss: 10 ml Procedure Complications No complications Procedure Medications Medication Administration Route Dosage 0.9% NaCl I.V. 100 ml/hr Oxygen etCO2 Nasal cannula 6 l/min Hurricaine [place] P.O. 2 Sprays Refer to Anesthesia Notes for Sedation Medications Hemodynamics Rest Heart Rate: 80 (bpm) Snapshots Pre Cath Intra NCS Post Cath Vital Signs Time Heart Resp SPO2 etCO2 NIBP (mmHg) Rhythm Pain Sedation Rate (ipm) (%) (mmHg) Status Level (bpm) 12:37:41 83 16 100 40.8 142/79(121) NSR 0 (11) 10(A) , No pain 12:41:57 69 15 100 22.7 129/69(107) NSR 0 (11) 10(A) , No pain 12:46:17 67 16 100 31.7 130/70(111) NSR 0 (11) 10(A) , No pain Medications Time Medication Route Dose Verified Delivered Reason Notes Effectiv eness by by 12:36:37 0.9% NaCl I.V. 100 Mich Jody used for ml/hr St Wan Dudley procedure MD KIM 12:36:50 Oxygen etCO2 6 Mich Jody used for Nasal l/min St Wan Dudley procedure cannula MD KIM 12:37:08 Hurricaine P.O. 2 Mich Jody used for Encino Sprays St Wan Dudley procedure MD KIM 12:37:12 Refer to Michlanden Vera Anesthesia St Wan Dudley Notes for MD KIM Sedation Medications Procedure Log Time Note 11:45:08 Marcio MAR(R) sent for patient. Start room use. 11:46:28 Time tracking: Regular hours (M-F 7:00 - 5:00) 11:47:33 Plan of Care:Hemodynamics will remain stable., Cardiac rhythm will remain stable., Comfort level will be maintained., Respiratory function will remain adequate., Patient/ family verbilizes understanding of procedure., Procedure tolerated without complication., Recovers from procedure without complications.. 12:20:07 Patient arrived from Med/Surg to CCL 3. Patient remains on bed/stretcher for procedure. 12:20:11 Pedro Cartagena Cadet Deck present for RAYMOND. 12:20:59 MARVIN Cates CRNA present for procedure. 12:20:59 Mynor Smith MD present and monitoring patient for TIVA. 12:36:27 Vital chart was started 12:36:37 0.9% NaCl 100 ml/hr I.V. was administered by Jody Dudley RN; used for procedure; 12:36:50 Oxygen 6 l/min etCO2 Nasal cannula was administered by Jody Dudley RN; used for procedure; 12:37:08 Hurricaine [place] 2 Sprays P.O. was administered by Jody Dudley RN; used for procedure; 12:37:12 Refer to Anesthesia Notes for Sedation Medications was administered by Jody Luis Enrique RN; ; 12:38:12 Warm blankets applied, and jacqui hugger turned on for patient comfort. 12:38:12 Correct patient and procedure confirmed by team. 12:38:13 Signed procedure consent form obtained from patient. 12:38:14 ECG and BP/O2 sat monitors applied to patient. 12:38:23 Baseline sample Acquired. 12:38:28 Rhythm: sinus rhythm 12:38:33 Full Disclosure recording started 12:38:44 H&P Date Dictated: 08/12/2018 Within 30 days and on chart.. 12:38:45 Pre-procedure instructions explained to patient. 12:38:45 Pre-op teaching completed and patient verbalized understanding. 12:38:51 Family unavailable. 12:38:53 Patient NPO since Midnight. 12:39:02 Is the patient allergic to Iodine/contrast media? No. 12:39:04 Is patient on blood thinner?No 12:39:06 Patient diabetic? No. 12:39:09 Previous problem with sedation/anesthesia? No ? 12:39:10 Snore? No 12:39:11 Sleep apnea? No 12:39:12 Deviated septum? No 12:39:13 Opens mouth fully? Yes 12:39:13 Sticks out tongue? Yes 12:39:15 Airway obstruction? No ? 12:39:18 Dentures? No ? 12:39:21 Patient pain scale 0/10 ?. 12:39:26 IV patent on arrival in left wrist with 0.9% NaCl at O. 12:40:09 Lab results completed and on chart. 12:40:13 Alarms reviewed by Tanya Jauregui 12:40:14 --------ALL STOP TIME OUT------ 12:40:15 Final Timeout: patient, procedure, and site verified with staff and physician. All members of the team are in agreement. 12:40:43 Fire Safety Assessment: B--The operative or invasive procedure is being performed above the xiphoid process or in the oropharynx., E--There are other possible contributors. 12:40:48 Physical assessment completed. ASA score P 4 - A patient with severe systemic disease that is a constant threat to life as per Mich Aguero MD. 12:40:52 Sedation plan: TIVA Medication:Versed, Fentanyl 12:43:07 Procedure started. 12:43:22 RAYMOND started. 12:45:10 RAYMOND completed. 12:45:14 Procedure ended.(Physican Out) 12:45:58 Fluoroscopy time 00.00 minutes. 12:45:59 Fluoroscopy dose: 0 mGy 12:45:59 Flurop Dose total: 0 12:46:02 Contrast amount:Isovue 300 0ml. 12:46:11 Post-procedure physical assessment completed. ASA score P 4 - A patient with severe systemic disease that is a constant threat to life as per Mich Aguero MD. 12:46:14 Post procedure rhythm: unchanged. 12:46:17 Estimated blood loss: 10 ml 12:46:19 Post procedure instruction explained to patient.Patient verbalizes understanding. 12:46:19 Patient needs reinforcement of post procedure teaching. 12:46:34 Procedure and supply charges have been captured, reviewed, submitted and are correct. 12:46:37 Procedure Complication : No complications 12:46:40 Vital chart was stopped 12:46:46 See physician's report for complete and final results. 12:47:06 Report given to Med/Surg. 12:48:36 Patient transfered to Med/Surg with Bed. 12:48:40 Procedure ended. 12:48:40 Full Disclosure recording stopped 12:48:45 End room use (Document Last) Signature Audit [place] Stage Time Signature Unsigned Intra-Procedure 08/13/2018 Marcio Ness 12:51:23 PM RT(R) Signatures Monitor : Marcio Ness RT Signature : Date : Time : [facility] [address] [place] [address]
[~2018-07-27 20:02] MED LIST: ADVIL200 MG PO; CENTRUM SILVER1 EAC3 PO; COMBIGAN OPHT DR5 ML EACH EYE; GLIMEPIRIDE4 MG PO; LASIX20 MG PO; METOPROLOL TART50 MG PO; NORVASC10 MG PO; PEPTO-BISMOL262 M1 PO
--- NOTE | 2018-07-27 22:40 | NUR ---
PT TRANSFER TO FLOOR VIA EMS FROM [facility]. DISORIENTED X4, NONRESPONSIVE TO STERNUM RUB, NONVERBAL. DOES NOT RESPOND TO HER YOCHA DEHE TOUNGE - DIVEHI. PUPILS FIXED, R EYE BLIND. L EYE NOT ACCOMADATING. MOUTH OPEN, EYES OPEN. SKIN WARM AND DRY, PT FOUND WITH LARGE BOWEL MOVEMENT. SKIN COLOR PALE. HR 73, BP 143/70, TEMP 97.9, RR 14, SPO2 98% ON 4L OF O2. BRAY DRAINING PALE YELLOW URINE. PIV IN L AC, PATENT, C/D/I. +2 GENERALIZED EDEMA. PERIPHERAL PULSE WEAK BILAT. LUNG SOUNDS CLEAR, BOWEL SOUNDS PRESENT. INITIATED RAPID RESPONSE AT 2250. ARIE, ORNAMENTER HAND AT BEDSIDE TO PERFORM ASSESSMENT. NOTIFIED DR. CAICEDO VIA ARIE. ARIE STATES TO DR. CAICEDO "THIS IS HOW SHE WAS WHEN SHE WAS IN ICU." OBTAINED CBC AND BMP PER JUDY SARGENT. SASCHA STATES HE DOES NOT WANT TO DO ANYTHING PER JUDY SARGENT. PLACED TELEMETRY ON PT. NOTIFIED LAB OF STAT LAB DRAWS. WCTM.
--- NOTE | 2018-07-27 23:00 | NUR ---
CONTACTED [facility] BECAUSE OF LACK OF SUFFICIENT PAPERWORK AND BACKGROUND HISTORY ON PATIENT. PT WAS TRANSFERRED OVER WITH WHAT SEEMS LIKE PAPERWORK SHE WOULD RECIEVE WHEN DC'ING HOME, NOT TRANSFERRING TO A DIFFERENT HOSPITAL. SPOKE WITH CHARGE NURSE FROM [facility] ON F6 - MED SPECIALTIES. CHARGE NURSE STATED "SOMEONE SCREWED THE POOCH ON THIS ONE." OBTAINED SEVERAL SHEETS OF PAPERWORK AND BACKGROUND HISTORY FROM PT'S STAY AT [facility] VIA FAX. PT STILL NONVERBAL AND [facility] PAPERWORK STATES "HAS NO SURROGATE DECISION MAKER."
--- NOTE | 2018-07-27 23:30 | NUR ---
NOTIFIED BY RT AB THAT PT'S LACTIC ACID WAS <0.30. VERBALIZED UNDERSTANDING.
--- NOTE | 2018-07-27 23:30 | NUR ---
RECIEVED CRITICAL HGB OF 6.[address] CAICEDO. ORDERED 1 UNIT OF BLOOD, AMMONIA, AND AGB'S PER MD TELEPHONE ORDERS. NOTIFIED DR. CAICEDO OF FIXED PUPILS AND LACK OF CHANGE IN RESPONSIVENESS. AFTER RECIEVING ABG'S, NOTIFIED SASCHA WELL. SASCHA STATED THAT I "DID NOT HAVE TO NOTIFY HIM ABOUT THE OTHER LAB." WCTM CLOSELY AND FOLLOW POC.
[2018-07-27 23:31] LABS: HEMATOCRIT 21.5 % (36.0-48.0); LYMPHOCYTES 18.6 % (15-50); MCH 29.2 pg (26.0-34.0); MCHC 32.1 g/dL (31.0-37.0); MCV 91.1 fL (80.0-100.0); NEUTROPHILS 65.3 % (40-80); RBC 2.36 10x6/uL (4.00-5.40); RDW 15.9 % (11.5-14.5); WBC 3.1 10x3/uL (4.8-10.8)
[2018-07-27 23:40] LABS: ALBUMIN 2.1 g/dL (3.4-5.0); ANION GAP 8.8 mmol/L (8-16); BILIRUBIN - TOTAL 0.27 mg/dL (0.2-1.3); CALCIUM 7.1 mg/dL (8.5-10.1); CARBON DIOXIDE 33.1 mmol/L (21.0-32.0); CREATININE - SERUM 2.3 mg/dL (0.6-1.3); POTASSIUM - SERUM 4.9 mmol/L (3.5-5.1); PROTEIN - SERUM 5.4 g/dL (6.4-8.2)
[2018-07-27 23:43] LABS: HEMOGLOBIN 6.9 g/dL (12-16); PLATELET COUNT 209 10x3/uL (130-400)
[2018-07-28] VITALS (7 sets, daily range): BP systolic 143–164; BP diastolic 70–84; BMI 29.1; BMI 29.0
--- NOTE | 2018-07-28 01:30 | NUR ---
PRE-TRANSFUSION VITALS OBTAINED AT 0130. TEMP 97.3, HR 78, RR 12, BP 142/76. CROSS-CHECKED BLOOD TYPE, BBK WRIST BAND, UNIT NUMBER, UNIT TYPE, AND PT INFORMATION WITH NATACHA CAVAZOS. HUNG BLOOD WITH BLOOD TUBING AND 250 CC NS TO GO INTO L AC PIV. 15 MIN POST-TRANFUSION VITALS: TEMP 97.9, HR 71, RR 14, BP 144/71. PT STILL NONVERBAL AND PALE. SKIN WARM AND DRY. NO OTHER NEEDS NOTED AT THIS TIME. WCTM AND FOLLOW POC. CL IN REACH, SR UP X2, BED IN LOWEST POSITION.
[2018-07-28 07:25] LABS: BASOPHILS 0.6 % (0-2); EOSINOPHILS 1.4 % (0-7); HEMATOCRIT 23.5 % (36.0-48.0); HEMOGLOBIN 7.7 g/dL (12-16); IMMATURE GRANULOCYTES 0.3 % (0-5); LYMPHOCYTES 20.4 % (15-50); MCH 28.6 pg (26.0-34.0); MCHC 32.8 g/dL (31.0-37.0); MEAN PLATELET VOLUME 9.8 fL (7.4-10.4); MONOCYTES 13.3 % (2-11); PLATELET COUNT 175 10x3/uL (130-400); RBC 2.69 10x6/uL (4.00-5.40); RDW 16.1 % (11.5-14.5); WBC 3.5 10x3/uL (4.8-10.8)
[2018-07-28 07:27] LABS: ANION GAP 10.1 mmol/L (8-16); CALCIUM 7.4 mg/dL (8.5-10.1); CARBON DIOXIDE 32.5 mmol/L (21.0-32.0); CREATININE - SERUM 2.2 mg/dL (0.6-1.3); POTASSIUM - SERUM 4.6 mmol/L (3.5-5.1)
[2018-07-28 07:33] LABS: MCV 87.4 fL (80.0-100.0)
--- NOTE | 2018-07-28 07:36 | NUR ---
REPORT RECEIVED. WILL CONTINUE WITH POC. PT CURRENTLY LYING SEMI FOWLERS. CALL LIGHT W/I REACH. PT IS RESTING AT THE MOMENT. RR EVEN AND UNLABORED ON 4L 02. L.AC PIV IS SALINE LOCKED. NG TUBE IN PLACE AND LOCKED. BRAY IN PLACE AND DRAINING URINE. FALL PRECAUTIONS IN PLACE. PT IS BEDFAST. NO S/S OF DISTRESS NOTED. WILL CTM.
--- NOTE | 2018-07-28 11:05 | NUR ---
BED ALARM PLACED ON PT. SCDS PLACED AND FUNCTIONING PROPERLY. PT IS ONLY RESPONSIVE TO DEEP STIMULI. WILL CTM.
[2018-07-28 12:46] LABS: % SATURATION 62 % (15-55); IRON 87 ug/dl (35-150); TOTAL IRON BIND CAPACITY 140 ug/dl (260-445)
[2018-07-28 12:49] LABS: UNSAT IRON BIND CAPACITY 53 ug/dl (150-375)
[2018-07-28 15:23] LABS: APPEARANCE CLEAR (CLEAR); BILIRUBIN NEGATIVE (NEGATIVE); COLOR YELLOW (YELLOW); GLUCOSE 100 mg/dL (NEGATIVE); KETONE NEGATIVE (NEGATIVE); NITRITE NEGATIVE (NEGATIVE); PROTEIN 1+ mg/dL (NEGATIVE); RED CELLS - URINE 0-5 /hpf (0-5); UROBILINOGEN NORMAL (NORMAL); WHITE CELLS - URINE >50 /hpf (0-5)
[2018-07-28 15:24] LABS: EPITHELIAL CELLS 0-5 /hpf (0-5)
[2018-07-28 15:25] LABS: BACTERIA MANY /hpf (NONE SEEN)
--- NOTE | 2018-07-28 16:03 | NUR ---
I have reviewed this patient and I concur with the Shift Assessment completed by the Licensed Practical Nurse today this shift.
--- NOTE | 2018-07-28 16:51 | NUR ---
RECEIVED ORDERS FOR TUBE FEEDING VIA NG. CONFIRMED PLACEMENT WITH CHEST XRAY. RECORDED 7ML OF CLEAR FLUID FOR RESIDUAL. PRIMED PUMP AND INITIATED FEEDING @20ML/HR VIA NG TUBE, WILL CONTINUE TO CHECK RESIDUALS AND ADJUST ACCORDINGLY. 60ML FLUSHES BID SET IN PLACE. PT IS LYING SEMI FOWLERS. CALL LIGHT W/I REACH. PT WILL OPEN EYES BUT NOT RESPOND TO QUESTIONS, ONLY DEEP STIMULI. PT DOES NOT MAKE VERBAL COMPREHENSIBLE SOUNDS. RR ARE EVEN AND UNLABORED ON 4L 02. WILL CTM.
--- NOTE | 2018-07-28 20:08 | NUR ---
PT LAYING IN BEDON BACK TILTED TO RIGHT WITH ARMS LAYING ON CHEST. RESP EVEN AND UNLABORED. 4L O2 NC. SCD'S ON BILATERAL LOWER EXTREM. HEEL PROTECTORS ON. NGT NOTED, [place]ANG[place]OO PUMP INFUSING AT 20 WILL CHECK ORDERS AND FOLLOW. PT HAS NO S/S OF DISTRESS. ACCESSORY MUSCLES BEING USED, BEDLOW AND CALL LIGHT INREACH. ALARM ON AND ACTIVE. WILL CPOC
--- NOTE | 2018-07-28 22:50 | NUR ---
4 UNITS GIVEN FOR FSBS OF 222, FIXED SCD,S AND HEEL PROTECTORS. EDEMA +1 +2 NOTED ON LOWER EXTREM. PT REPOSTIONED HOB ABOVE 30, PT MOVING ARMS AND TALKING BUT NOT WORDS TO NURSE, WILL NOT VERBALY RESPOND TO NURSE OR TURN HEAD TOWARDS NURSE. PT HAS NO S/S OF DISTRESS. BEDLOW AND CALL LIGHT IN REACH. WILL CPOC
[2018-07-29 00:30] VITALS: BP 140/60
--- NOTE | 2018-07-29 01:32 | NUR ---
PT INCONT A MODERATE AMOUNT OF LOOSE LIQUID STOOL. CLEANED PT AND DID BRAY CARE. REPOSITIONED PT, FSBS DONE NO INSULIN NEEDED PER SLIDING SCALE 149 RESIDUAL IS 145 DID NOT INCREASE AT THIS TIME STARTING RESIDUAL AT START OF SHIFT WAS LESS THAN 20 GAVE PT TYLENOL FOR PAIN, FLUSHED AND CONTINUED FEEDING. PT MOANING AND SPEAKING. TALKING ABOUT WANTING TO GO HOME. ASKED ABOUT HER FAMILY AND THAN GAVE NURSE HALF A NUMBER [phone] PT WAS SPEAKING CAMBODIAN BUT GAVE THE NUMBER IN KITTITIAN. PT WENT BACK TO SLEEP. BEDLOW AND CALL LIGHT IN REACH. NO S/S OF DISTRESS. WILL CPOC
--- NOTE | 2018-07-29 01:40 | NUR ---
PT RESIDUAL IS 145 PAUSED FEEDINGS, PT HAS NO S/S OF DISTRESS. HOB IS 40
--- NOTE | 2018-07-29 04:56 | NUR ---
PT REPOSTIONED ON RIGHT SIDE. CHECKED RESIDUAL IT IS 12ML FLUSHED AND STARTED TUBE FEEDING BACK TO 20ML/HR HOB ABOVE 30, PT STILL ON RIGHT SIDE. FIXED KINK IN BRAY. CHECKED FOR ANY WRINKLES AND SPOKE WITH PT WITH OUT MUCH OF A RESPONSE. PT MOANING ASKED IF IN PAIN, PT MESSED WITH NGT PT IS MORE RESPONSIVE THAN START OF SHIFT. PT HAS NO S/S OF DISTRESS. BEDLOW AND CALL LIGHT INREACH. FREQUENT CHECKS PT WILL CALL FOR ASSIST. WILL CPOC
[2018-07-29 05:29] VITALS: BP 158/76
--- NOTE | 2018-07-29 05:54 | NUR ---
PT PULLED OUT NGT AND TOOK OFF O2. PLACED O2 BACK ON AND STOPPED TUBE FEEDING. PT REPOSTIONED. AND IS RESTING BUT WILL RANDOMLY YELL OUT IF IN PAIN OR DISCOMFORT. PT WILL NOT RESPOND, PT MOVING AND AROUSING MORE THAN START OF SHIFT. CALLED ALFREDO FLORES AND SHE STATED TO SEE WHAT DR KATIA LEROY APN SAYS WHEN SHE COMES IN. PT HAS NO S/S OF DISTRESS. PT ALARM ON AND ACTIVE. SCD'S ON BILATERAL. WILL CPOC
[2018-07-29 06:07] LABS: BASOPHILS 0.6 % (0-2); HEMATOCRIT 23.1 % (36.0-48.0); IMMATURE GRANULOCYTES 0.2 % (0-5); MCH 28.1 pg (26.0-34.0); MCV 87.8 fL (80.0-100.0); MEAN PLATELET VOLUME 9.9 fL (7.4-10.4); NEUTROPHILS 74.2 % (40-80); PLATELET COUNT 195 10x3/uL (130-400); RBC 2.63 10x6/uL (4.00-5.40); RDW 16.1 % (11.5-14.5)
[2018-07-29 06:24] LABS: ANION GAP 8.2 mmol/L (8-16); CALCIUM 7.4 mg/dL (8.5-10.1); CARBON DIOXIDE 33.4 mmol/L (21.0-32.0); CREATININE - SERUM 2.1 mg/dL (0.6-1.3); POTASSIUM - SERUM 4.6 mmol/L (3.5-5.1)
[2018-07-29 06:54] LABS: HEMOGLOBIN 7.4 g/dL (12-16)
[2018-07-29 07:53] VITALS: BP 148/73
--- NOTE | 2018-07-29 08:00 | NUR ---
ASSESSMENT COMPLETED. LETHARGE. NOT RESPONDING TO VERBAL STEMULI. HOB UP 3O. O2 AT 4 LM PER NC. SL TO LEFT AC. TURM Q2. SCD AND HEEL PROCTORS ON. WILL MONITOR
[2018-07-29 08:20] LABS: FOLATE (FOLIC ACID) - SERUM 16.1 ng/mL (>3.0)
[2018-07-29 10:18] LABS: INR 0.99 (0.85-1.17); PROTIME 12.6 SECONDS (11.6-15.0)
[2018-07-29 10:19] LABS: APTT 34.3 SECONDS (22.8-39.4)
[2018-07-29 12:23] VITALS: BP 153/53
--- NOTE | 2018-07-29 13:59 | NUR ---
I DISAGREE WITH ASSESSMENT OF RN SOCIAL SERVICES. PATIENT IS ON 4L PER NC. THERE IS ALSO BILATERAL FOOT BOOTIES ON FEET TO HELP PREVENT FOOT DROP/SOFT SPOTS TO HEEL.
--- NOTE | 2018-07-29 14:03 | NUR ---
LYING QUIETLY. MOANING AT TIMES. 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 NO NEEDS VOICED
[2018-07-29 14:47] VITALS: BP 157/74
[2018-07-29 20:00] VITALS: BP 167/81
--- NOTE | 2018-07-29 20:20 | NUR ---
RESUMING PT CARE. PT ALERT AND LETHARGIC. PT HOB ELEVATED 30 DEGREES. PT IS TO BE TURNED Q 2 HOURS. PTIS BLIND IN RT EYE. SCD'S ON, HEEL PROTECTOR ON BILATERAL FOOT. BED ALARM IS ON. BED IN LOW POSITION WITH CALL LIGHT IN REACH. WILL CONTINUE TO MONITOR PT AND FOLLOW PLAN OF CARE.
[2018-07-30] VITALS (8 sets, daily range): BP systolic 150–166; BP diastolic 77–90
--- NOTE | 2018-07-30 03:09 | NUR ---
2355 PT WAS MOANING AND C/O OF NAUSEA. PT STAYS SHE FEELS LIKE SHE IS GOING TO THROW UP. ZOFRAN 4MG GIVEN IV PUSH PER MAR. BED IN LOW POSITION WITH CALL LIGHT IN REACH. WILL CONTINUE TO MONITOR PT AND FOLLOW PLAN OF CARE.
[2018-07-30 05:40] LABS: BASOPHILS 0.8 % (0-2); HEMATOCRIT 20.8 % (36.0-48.0); IMMATURE GRANULOCYTES 0.2 % (0-5); LYMPHOCYTES 13.8 % (15-50); MCH 28.8 pg (26.0-34.0); MCHC 32.2 g/dL (31.0-37.0); MCV 89.3 fL (80.0-100.0); MONOCYTES 8.1 % (2-11); NEUTROPHILS 76.1 % (40-80); PLATELET COUNT 203 10x3/uL (130-400); RBC 2.33 10x6/uL (4.00-5.40); RDW 15.8 % (11.5-14.5); WBC 6.2 10x3/uL (4.8-10.8)
[2018-07-30 05:45] LABS: HEMOGLOBIN 6.7 g/dL (12-16)
[2018-07-30 05:54] LABS: ANION GAP 10.4 mmol/L (8-16); CALCIUM 7.9 mg/dL (8.5-10.1); CARBON DIOXIDE 33.2 mmol/L (21.0-32.0); POTASSIUM - SERUM 4.6 mmol/L (3.5-5.1)
--- NOTE | 2018-07-30 06:01 | NUR ---
LAB CALLED WITH CRITICAL RESULTS. HGB-6.7 AND HCT-20.8. DR. CAICEDO WAS CALLED AND NOTIFIED AND HE ORDERED [address] CAICEDO STATES HE WILL HAVE TO SIGN CONSENTS FOR PT WHEN HE COMES IN. BLOOD HAS BEEN ORDERED.
--- NOTE | 2018-07-30 07:56 | NUR ---
PT ASLEEP WHEN I ENTERED, DID NOT DISTURB AT THIS TIME. CL IN REACH. SRX2. BED ALARM ON.
--- NOTE | 2018-07-30 08:53 | NUR ---
PT BLOOD IS READY, DR. CAICEDO HAS TO BE PRESENT TO SIGN PATIENTS CONCENTS FOR BLOOD. IS AWARE OF THIS, IS NOT HERE AT THIS TIME. CAN NOT GIVE BLOOD UNTIL CONCENTS ARE SIGNED.
[2018-07-30 11:21] LABS: CA125 183.7 U/mL (0.0-38.1)
--- NOTE | 2018-07-30 12:54 | NUR ---
DR. CAICEDO SIGNED CONSENT FOR BLOOD. UNIT HUNG. WILL MONITOR.
--- NOTE | 2018-07-30 12:56 | NUR ---
I have reviewed this patient and I concur with the Shift Assessment completed by the Licensed Practical Nurse today this shift.
--- NOTE | 2018-07-30 14:48 | NUR ---
BLOOD GOING WELL. NO CHANGE IN PTS STATUS. PT IS LYING AND MOANING. NOT EATING.
--- NOTE | 2018-07-30 16:29 | NUR ---
PT TOLERATING 2ND UNIT OF BLOOD WELL. NO CHANGES IN STATUS. CL INREACH. SRX2
--- NOTE | 2018-07-30 18:13 | NUR ---
BLOOD WAS DONE, WENT TO DISCONNECT IV AND PTS LEFT ARM IS SWOLLEN, WILL CONTINUE TO MONITOR. IT IS NOT RED OR WARM. NO OTHER CAHNGES NOTED. WENT TO CHECK PTS LEGS TO ASSES FOR SWELLING, FOUND PT HAD HAD A LIQUID B.M. IT IS DARK IN COLOR, WAS INITIALLY CONNCERED IT WAS BLOOD. BRAY CATHETER INTACT, CATH CARE PREFORMED. PT CLEANED AND TURNED.
[2018-07-30 19:12] LABS: HEMATOCRIT 25.6 % (36.0-48.0); HEMOGLOBIN 8.3 g/dL (12-16)
--- NOTE | 2018-07-30 21:00 | NUR ---
[facility] STAFF AT BEDSIDE. ALERT TO PERSON AND PLACE. REORIENTED TO TIME, SITUATION. NEEDS REINFORCEMENT. FOLLOWS INSTRUCTIONS IN PORTUGUESE. STATES BASIC NEEDS. RESPIRATIONS EVEN AND UNLABORED. ON 4L NC. SAT 98%. VITAL SIGNS STABLE AND AFEBRILE. NO VISUAL CUES OF DISTRESS NOTED. DENIES ANY OTHER NEEDS AT THIS TIME. BED LOW, SIDE RAILS UP X2. CALL LIGHT IN REACH. WILL CONTINUE TO MONITOR.
--- NOTE | 2018-07-30 21:00 | NUR ---
SHIFT ASSESSMENT DONE ON 07/30/18 AT 2100.
[2018-07-30 23:18] LABS: HEMATOCRIT 23.9 % (36.0-48.0); HEMOGLOBIN 7.9 g/dL (12-16)
[2018-07-31] VITALS (23 sets, daily range): BP systolic 136–180; BP diastolic 68–121
[2018-07-31 04:39] LABS: BASOPHILS 0.8 % (0-2); EOSINOPHILS 1.4 % (0-7); HEMATOCRIT 23.7 % (36.0-48.0); HEMOGLOBIN 7.8 g/dL (12-16); IMMATURE GRANULOCYTES 0.2 % (0-5); LYMPHOCYTES 17.9 % (15-50); MCH 28.7 pg (26.0-34.0); MCHC 32.9 g/dL (31.0-37.0); MCV 87.1 fL (80.0-100.0); MEAN PLATELET VOLUME 9.6 fL (7.4-10.4); MONOCYTES 7.7 % (2-11); PLATELET COUNT 171 10x3/uL (130-400); RBC 2.72 10x6/uL (4.00-5.40); RDW 16.5 % (11.5-14.5)
[2018-07-31 04:58] LABS: CALCIUM 7.7 mg/dL (8.5-10.1); CARBON DIOXIDE 31.7 mmol/L (21.0-32.0); POTASSIUM - SERUM 4.7 mmol/L (3.5-5.1)
--- NOTE | 2018-07-31 08:05 | NUR ---
ASSESSMENT COMPLETE - PT LYING SUPINE - DARK STOOL NOTED
--- NOTE | 2018-07-31 09:00 | NUR ---
PATIENT BATHED - MELENA LIQUID STOOL - PT MOANING - WITH HAND ON CHEST - CALLED INTERPERTURE (WHO DID NOT INTRODUCE HERSELF), VERY POOR CONNECTION - WAS NOT ABLE TO USE THE SPEAKER PHONE DUE TO UNABLE TO HEAR. WAS ABLE TO UNDERSTAND PATEINT WANTED TO KNOW WHERE SHE WAS (INFORMED), WHERE WAS HER FAMIY (WILL F/U WITH FAMILY), PATIENT DENIED CHEST PAIN. PT NAUSEATED - CPOC
[2018-07-31 11:07] LABS: HEMOGLOBIN 7.6 g/dL (12-16)
--- NOTE | 2018-07-31 12:20 | NUR ---
PER CHECK PILOT - ARIEL SPRAGUE, CALLED TO INFORM THIS RN - FAMILY WENT [facility] (THEY DID NOT KNOW THE PATIENT WAS TRANSFERRED TO [facility] - ASKED TO BE ALLOW TO SEE PATIENT EVEN AFTER VISITING HOURS - CONFIRMED - CPOC
--- NOTE | 2018-07-31 12:30 | NUR ---
DR. HERNANDEZ CALLED FOR UPDATE - ORDERED 2 UNITS PRBC NOW - TOV -ENTERED PER PROTOCOL = CPOC
--- NOTE | 2018-07-31 12:52 | NUR ---
DR. VELASQUEZ AT BEDSIDE FOR ASSESSMENT - PATIENT DID NOT ACTIVELY PARTICAPATE IN THE CONVERSATION - MD WILL REASSESS ON thursday - OC
--- NOTE | 2018-07-31 13:00 | NUR ---
CLEAR LIQUID DIET TRAY GIVEN TO PT - PT ATE ABOUT 1/2 TRAY - CPOC
--- NOTE | 2018-07-31 13:50 | NUR ---
PT CONTINUES TO EAT LUNCH TRAY - COPC
--- NOTE | 2018-07-31 14:30 | NUR ---
CALLED BLOOD BANK FOR 2 UNITS PRBC - WAS TOLD NO ORDER ENTERED - REENTERED ORDER.
--- NOTE | 2018-07-31 14:32 | NUR ---
NEED TYPE AND CROSS - OLD ORDER WAS ATTACHED TO THE PREVIOUS '' T&C ORDER. GUEST SERVICES REPRESENTATIVE WILL PLACE 2 UNITS PRBC STAT.
[2018-07-31 14:57] LABS: HEMATOCRIT 23.5 % (36.0-48.0); HEMOGLOBIN 7.6 g/dL (12-16)
--- NOTE | 2018-07-31 15:15 | NUR ---
[facility], INFORMED THIS RN - FAMILY WAS IN WAITING ROOM- SON (MARIAELENA) AND dAUGHTER (DEJAN), ARE IN WAITING AREA - ALLOWED INTO ROOM - ANSWERED ALL QUESTIONS TO FAMILY'S STATISFATCTION - EXCEPT WHAT DID [facility] TEST FOR. THIS RN IS NOT AWARE OF EXACT TEST - INFORMED CHILDREN OF THIS. ([facility] INFOR[facility] THIS RN - THE CHILDREN'S COUNSELOR, NAME: TERESA PEREIRA, , MACHINE RECORDS UNITS SUPERVISOR
--- NOTE | 2018-07-31 16:00 | NUR ---
i&o COMPLETED - FAMILY IN ROOM FEEDING PT - ANSWERED QUESITONS R/T EDG CONSENT WITH TIVA - PATIENT SIGNED CONSENT WITH FAMILY TRANSLATING SERVICES - CPOC
--- NOTE | 2018-07-31 17:10 | NUR ---
ACCU CHECK DONE = SEE MAR - CPOC
--- NOTE | 2018-07-31 18:06 | NUR ---
FAMILY WASHED PT'S HAIR AND COMBED OUT TANGLES - PT DENIED ANY ACUTE NEEDS. CPOC
[2018-07-31 22:09] LABS: HEMATOCRIT 22.6 % (36.0-48.0)
[2018-07-31 22:15] LABS: HEMOGLOBIN 7.3 g/dL (12-16)
[2018-08-01] VITALS (15 sets, daily range): BP systolic 145–167; BP diastolic 49–95
[2018-08-01 03:40] LABS: BASOPHILS 0.7 % (0-2); EOSINOPHILS 1.8 % (0-7); HEMATOCRIT 25.8 % (36.0-48.0); HEMOGLOBIN 8.4 g/dL (12-16); IMMATURE GRANULOCYTES 0.2 % (0-5); LYMPHOCYTES 17.6 % (15-50); MCH 29.2 pg (26.0-34.0); MCHC 32.6 g/dL (31.0-37.0); MEAN PLATELET VOLUME 9.8 fL (7.4-10.4); MONOCYTES 11.5 % (2-11); NEUTROPHILS 68.2 % (40-80); PLATELET COUNT 177 10x3/uL (130-400); RBC 2.88 10x6/uL (4.00-5.40); RDW 15.7 % (11.5-14.5); WBC 4.3 10x3/uL (4.8-10.8)
[2018-08-01 03:58] LABS: ANION GAP 4.3 mmol/L (8-16); CALCIUM 7.5 mg/dL (8.5-10.1); POTASSIUM - SERUM 4.3 mmol/L (3.5-5.1)
[2018-08-01 04:10] LABS: MCV 89.6 fL (80.0-100.0)
--- NOTE | 2018-08-01 04:58 | NUR ---
PT IN BED IN LOW FOWLERS POSITION. ALERT AND ORIENTED X4. RESPIRATIONS EVEN AND UNLABORED. VITAL SIGNS STABLE AND AFEBRILE.NO VISUAL CUES OF DISTRESS NOTED. DENIES ANY OTHER NEEDS AT THIS TIME. BED LOW. SIDE RAILS UP X2. CALL LIGHT IN REACH. WILL CONTINUE TO MONITOR.
--- NOTE | 2018-08-01 07:00 | NUR ---
REC'ED REPORT FROM OUT GOING RN - PT RESTING WITH EYES CLOSED - RESPIRATIONS REGULAR RATE AND RHYTHM - CPOC
--- NOTE | 2018-08-01 08:00 | NUR ---
ASSESSMENT COMPLETED - BREAKFAST TRAY SET UP FOR PT TO EAT - CPOC
--- NOTE | 2018-08-01 08:30 | NUR ---
FAMILY AT BEDSIDE - ANSWERED ALL FAMILY QUESTIONS TO THEIR SATISFACTION CPOC
[2018-08-01 08:52] LABS: HEMATOCRIT 27.9 % (36.0-48.0)
--- NOTE | 2018-08-01 10:00 | NUR ---
GAVE MEDICATIONS - GAVE 2ND CRANBERRY JUICE - CPOC
--- NOTE | 2018-08-01 10:58 | NUR ---
PT RESTING - EAISLY AWAKENED BY TACTILE STIMULI - CPOUC
--- NOTE | 2018-08-01 12:00 | NUR ---
GI TEAM SETTING UP FOR PROCEUDRE. PATIENT'S FAMILY VISITING - PRAYED WITH PT AND FAMILY- ANSWERED ALL QUESTIONS TO FAMILY'S SATISFACTION - CPOC
[2018-08-01 12:50] LABS: HEMATOCRIT 28.7 % (36.0-48.0); HEMOGLOBIN 9.3 g/dL (12-16)
--- NOTE | 2018-08-01 12:51 | NUR ---
FAMILY AT BEDSIDE FOR VISITATION - ANSWERED ALL QUESTIONS . CPOC
--- NOTE | 2018-08-01 14:00 | NUR ---
FAMILY AT BEDSIDE - ANSWERED ALL QUESTIONS TO SATISFACTION - NO ACUTE DISTRESS
--- NOTE | 2018-08-01 17:15 | NUR ---
INFORMED FAMILY OF ABOVE CODE - ANSWERED ALL QUESTIONS TO FAMILY'S STATISFACTION - CPOC AND CLOSELY MONITOR
--- NOTE | 2018-08-01 17:26 | NUR ---
PT INC OF DARK STOOL. BATH AND LINENS CHANGING AND PT WITH DECREASED LOC AND HR 30, NO PULSE. CPR STARTED WITH 100% BVM, ACLS PER PROTOCOL. SEE CODE BLUE SHEET. RETURN OF PULSE AND RESP. DR CAICEDO AT BS.
[2018-08-01 18:15] LABS: EOSINOPHILS 1.8 % (0-7); HEMATOCRIT 30.3 % (36.0-48.0); HEMOGLOBIN 9.7 g/dL (12-16); MCH 28.7 pg (26.0-34.0); MCV 89.6 fL (80.0-100.0); MEAN PLATELET VOLUME 10.2 fL (7.4-10.4); MONOCYTES 6.2 % (2-11); PLATELET COUNT 180 10x3/uL (130-400); RBC 3.38 10x6/uL (4.00-5.40)
[2018-08-01 18:21] LABS: INR 0.98 (0.85-1.17); PROTIME 12.5 SECONDS (11.6-15.0)
[2018-08-01 18:23] LABS: D-DIMER-QUANTITATIVE 2.7 ug/mLFEU (0.20-0.54)
[2018-08-01 18:39] LABS: ALBUMIN 2.2 g/dL (3.4-5.0); ALKALINE PHOSPHATASE 63 U/L (46-116); ALT (SGPT) 21 U/L (10-68); BILIRUBIN - TOTAL 0.43 mg/dL (0.2-1.3); CALC OSMOLALITY 307 mosm/kg (275-300); CALCIUM 7.7 mg/dL (8.5-10.1); CARBON DIOXIDE 31.6 mmol/L (21.0-32.0); CHLORIDE - SERUM 106 mmol/L (98-107); CKMB 1.7 U/L (0.0-3.6); CREATINE KINASE 50 UL (21-215); CREATININE - SERUM 1.9 mg/dL (0.6-1.3); POTASSIUM - SERUM 4.2 mmol/L (3.5-5.1); PRO BNP 17897 pg/mL (0-125); SODIUM 144 mmol/L (136-145); TROPONIN-I < 0.017 ng/mL (0.000-0.060); UREA NITROGEN 64 mg/dL (7-18); eGFR NON AFRICAN AMERICAN 30 mL/min (90-120)
[2018-08-01 18:47] LABS: GLUCOSE 158 mg/dL (74-106)
--- NOTE | 2018-08-01 19:25 | NUR ---
Received patient laying in bed with eyes closed, assessment completed per flowsheet. Patient responds to questions/follows instructions, primary language is cook islander. 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 S1/S2 noted NSR on telemetry with HR 78, rythmic and regular. Breathing is shallow on 15L NRB with O2 sat 94%, expiratory wheeze noted bilateral upper with diminished mid and lower. All pulses palpable with weakness noted all, skin warm/dry with cap refill < 3 sec. Denies needs at this time, see flowsheet for details. All VSS and will continue to monitor.
--- NOTE | 2018-08-01 21:25 | NUR ---
No visitors at this time, HS meds given without difficulty. Repositioned for comfort, no further needs at this time and will continue to monitor.
[2018-08-01 22:15] LABS: HEMOGLOBIN 9.3 g/dL (12-16)
[2018-08-01 22:40] LABS: CKMB 2.4 U/L (0.0-3.6); CREATINE KINASE 52 UL (21-215); TROPONIN-I < 0.017 ng/mL (0.000-0.060)
--- NOTE | 2018-08-01 23:25 | NUR ---
Patient sleeping in bed with eyes closed, no s/s of distress at this time. S1/S2 noted NSR on telemetry with HR 82, rythmic and regular. Breathing is shallow on 15L NRB with O2 sat 97%, expiratory wheeze noted bilateral upper with diminished mid and lower. Escalera secured, clear yellow urine noted. All pulses palpable wtih cap refill < 3 sec, skin warm/dry. No further needs at this time, all VSS and will continue to monitor.
--- NOTE | 2018-08-02 01:00 | NUR ---
Patient resting in bed with eyes closed, no s/s of distress at this time. Patient changed to 10L high flow NC by RT, O2 sat 94%. No further needs at this time, will continue to monitor.
[2018-08-02 03:00] VITALS: BP 165/84
--- NOTE | 2018-08-02 03:20 | NUR ---
Patient sleeping in bed with eyes closed, no s/s of distress at this time. S1/S2 noted NSR on telemetry with HR 74, rythmic and regular. Breathing is shallow on 10L via High Flow NC with O2 sat 94%, expiratory wheeze noted bilateral upper with diminished mid and lower. All pulses palpable with cap refill < 3 sec, skin warm/dry. Denies pain or other needs at this time, all VSS and will continue to monitor.
[2018-08-02 05:05] LABS: BASOPHILS 0.2 % (0-2); EOSINOPHILS 0.6 % (0-7); HEMATOCRIT 29.9 % (36.0-48.0); HEMOGLOBIN 9.6 g/dL (12-16); IMMATURE GRANULOCYTES 0.2 % (0-5); LYMPHOCYTES 4.8 % (15-50); MCHC 32.1 g/dL (31.0-37.0); MCV 90.3 fL (80.0-100.0); MEAN PLATELET VOLUME 10.2 fL (7.4-10.4); MONOCYTES 3.3 % (2-11); NEUTROPHILS 90.9 % (40-80); PLATELET COUNT 164 10x3/uL (130-400); RBC 3.31 10x6/uL (4.00-5.40)
--- NOTE | 2018-08-02 05:10 | NUR ---
Patient sleeping in bed with eyes closed, O2 sat 94% on 10L High Flow NC. Patient denies pain or other needs at this time, all VSS and will continue to monitor.
[2018-08-02 05:19] LABS: WBC 10.3 10x3/uL (4.8-10.8)
[2018-08-02 05:35] LABS: CALC OSMOLALITY 311 mosm/kg (275-300); CALCIUM 7.4 mg/dL (8.5-10.1); CARBON DIOXIDE 32.4 mmol/L (21.0-32.0); CHLORIDE - SERUM 109 mmol/L (98-107); CKMB 2.4 U/L (0.0-3.6); CREATINE KINASE 47 UL (21-215); POTASSIUM - SERUM 4.5 mmol/L (3.5-5.1); SODIUM 148 mmol/L (136-145); TROPONIN-I < 0.017 ng/mL (0.000-0.060); UREA NITROGEN 63 mg/dL (7-18); eGFR NON AFRICAN AMERICAN 28 mL/min (90-120)
[2018-08-02 05:38] LABS: GLUCOSE 102 mg/dL (74-106)
[2018-08-02 07:00] VITALS: BP 158/80
--- NOTE | 2018-08-02 07:50 | NUR ---
SHIFT REPORT RECEIVED. PT RESTING COMFORTABLY ON HER BACK. AA&OX3. REPORTS SORENESS ON HER BACK AND CHEST. VSS. NO FEVER. ON 10L OF O2 VIA HIGH FLOW NC. BRAY IN PLACE WITH YELLOW URINE NOTED. LITE BRUISING NOTED ON UE. HAS L-AC PIV WITH NS AT 10ML/H AND PROTONIX AT 10ML/HR. BLIND IN BOTH EYES. SHIFT ASSESSMENT COMPLETED. SAFETY MEASURES IN PLACE. NO FURTHER NEEDS AT THIS TIME. WILL CONTINUE TO MONITOR.
--- NOTE | 2018-08-02 08:30 | NUR ---
MEAL TRAY SET UP. OFFERED ASSISTANCE. PT JUST WANTED FOOD CLOSE TO HER WHERE SHE COULD REACH IT. BRUSHED HAIR AND PULLED UP INTO A BUN. PULLED UP IN BED AND REPOSITIONED. NO FURTHER NEEDS AT THIS TIME. WILL CONTINUE TO MONITOR.
--- NOTE | 2018-08-02 10:08 | NUR ---
Nutrition follow-up: Diet advanced to full liquids Pt tolerating Labs reviewed Wt: 142# Pt still with AMS; only speaks Welsh; family now here. RDN following.
[2018-08-02 11:00] VITALS: BP 165/82
--- NOTE | 2018-08-02 12:50 | NUR ---
FULL LIQUID TRAY DELIVERED AND SET UP. REPOSITIONED FOR COMFORT. DENIES OTHER NEEDS AT THIS TIME. WILL CONTINUE TO MONITOR.
[2018-08-02 13:12] LABS: HEMATOCRIT 27.7 % (36.0-48.0)
--- NOTE | 2018-08-02 13:13 | NUR ---
CARAFATE GIVEN. PT EATING WELL WITH NO SWALLOWING DIFFICULTIES. STILL VERY SORE ON CHEST AND BACK. NO FURTHER NEEDS AT THIS TIME. WILL CONTINUE TO MONITOR.
--- NOTE | 2018-08-02 14:45 | CN ---
PATIENT NAME:BERNA GARCIA MEDICAL RECORD: [id number] : 74 LOCATION:[id number] ADMIT DATE: 07/27/18 ACCOUNT: [id number] CONSULTING PHYSICIAN: SARAH CHENG MD REFERRING PHYSICIAN: KIN CAICEDO MD DATE OF CONSULTATION: 07/31/2018 IDENTIFYING DATA: The patient is 48 years old. She is admitted to the hospital voluntarily. CHIEF COMPLAINT: None. HISTORY OF PRESENT ILLNESS: The patient apparently had a global hypoxic injury and was transferred here in early July with acute mental status change and respiratory failure. She was transferred to [facility]; underwent extensive medical, neurologic, and psychiatric evaluations; and there was nothing that could be done for her. For reasons that I am not clear on, she was then transferred back here. The patient has been documented through the course of the medical record to not be oriented, confused, and unable to process information. ASSESSMENT: Global hypoxic injury. PLAN: At this time, the patient is showing no behavior problems. There is no evidence of acute dangerousness. Given the length of time she has been in this condition, it would seem appropriate to me that some sort of residential care be established for her. TRANSINT:[id number] Voice Confirmation ID: [id number] DOCUMENT ID: [id number] SARAH CHENG MD at 1445 CC: [id number] DICTATION DATE: 07/31/18 1311 CAMPAIGN CONSULTANT: 07/31/18 1625 ADM IN [address] [id number] [place] [address]
[2018-08-02 15:00] VITALS: BP 167/85
--- NOTE | 2018-08-02 15:00 | NUR ---
RESTING COMFORTABLY. EYES CLOSED. AROUSES TO VOICE. VSS. NO FEVER. WILL CONTINUE TO MONITOR.
--- NOTE | 2018-08-02 17:00 | NUR ---
BED BATH GIVEN AT THIS TIME. BRAY CARE AND PERICARE PROVIDED. COMPLETE LINEN CHANGE PROVIDED. PULLED UP AND REPOSITIONED FOR COMFORT. ORAL CARE PRODUCTS PROVIDED. PT ABLE TO BRUSH TEETH INDEPENDENTLY. ICE WATER PROVIDED. NO FURTHER NEEDS AT THIS TIME. WILL CONTINUE TO MONITOR.
[2018-08-02 19:00] VITALS: BP 161/83
[2018-08-02 19:41] LABS: HEMATOCRIT 27.7 % (36.0-48.0); HEMOGLOBIN 8.7 g/dL (12-16)
[2018-08-02 23:00] VITALS: BP 155/89
[2018-08-03] VITALS (18 sets, daily range): BP systolic 159–184; BP diastolic 45–99; Ht 152.4 cm; Wt 62.8 kg
--- NOTE | 2018-08-03 03:16 | NUR ---
H AND H WAS 8.6 PRBC ORDERED AND STARTED PER DR. COUCH ORDER. IN ROOM WITH PT, VS TAKEN, AND PATIENT TOLERATING WELL.
[2018-08-03 06:40] LABS: BASOPHILS 0.4 % (0-2); EOSINOPHILS 1.3 % (0-7); HEMATOCRIT 30.4 % (36.0-48.0); HEMOGLOBIN 9.7 g/dL (12-16); IMMATURE GRANULOCYTES 0.1 % (0-5); LYMPHOCYTES 8.4 % (15-50); MCH 29.1 pg (26.0-34.0); MCHC 31.9 g/dL (31.0-37.0); MCV 91.3 fL (80.0-100.0); MEAN PLATELET VOLUME 10.3 fL (7.4-10.4); MONOCYTES 6.6 % (2-11); NEUTROPHILS 83.2 % (40-80); PLATELET COUNT 142 10x3/uL (130-400); RBC 3.33 10x6/uL (4.00-5.40); RDW 15.9 % (11.5-14.5); WBC 7.8 10x3/uL (4.8-10.8)
[2018-08-03 07:03] LABS: ANION GAP 9.5 mmol/L (8-16); BILIRUBIN - TOTAL 0.57 mg/dL (0.2-1.3); CALCIUM 7.5 mg/dL (8.5-10.1); CREATININE - SERUM 2.1 mg/dL (0.6-1.3); POTASSIUM - SERUM 4.5 mmol/L (3.5-5.1); PROTEIN - SERUM 5.6 g/dL (6.4-8.2)
--- NOTE | 2018-08-03 08:49 | NUR ---
CONSULT CALLED TO DR. GAMINO, NEW ORDERS RECIEVED,
[2018-08-03 17:15] LABS: CREATININE - URINE 35.4 mg/dL (30-125)
[2018-08-03 17:16] LABS: PRO/CRE RATIO URINE 32.8 mg/g; PROTEIN - URINE 1161.7 mg/dL (0.0-11.9)
--- NOTE | 2018-08-03 18:28 | MORECARE ---
CASE MANAGEMENT DISCHARGE SUMMARY PATIENT: BERNA GARCIA UNIT: [id number] ADM DATE: 07/27/18 AGE: 48 : 74 SEX: F ROOM/BED: D.2307 AUTHOR: JARET SHAY PHYSICIAN: REFERRING PHYSICIAN: KIN CAICEDO MD DATE OF SERVICE: 08/03/18 Discharge Plan Patient Name: BERNA GARCIA Facility: [facility]:[place] : 1970 Planned Disposition: Anticipated Discharge Date: Discharge Date: Expected LOS: Initial Reviewer: [email or web address] Initial Review Date: 08/03/2018 Generated: 08/03/18 7:28 pm Comments DCP- Discharge Planning Updated by [email or web address]: Chloe Hampton on 08/03/18 5:[address] CM attempted to visit with patient regarding discharge planning/ needs. Patient currently on BiPAP no family available. CM will continue to follow and assist as needed with discharge planning / needs DCPIA - Discharge Planning Initial Assessment Updated by [email or web address]: Brandin Cartwright on 08/02/18 9:02 am * Preadmission Environment Acute Care Facility * Facility Name [facility], [place], [place]. * List name and contact numbers for known caregivers / representatives who currently or will assist patient after discharge: ROYCE, SISTER IN LAW, YARELIS GARCIA, MINOR SON, FADY, FAMILY FRIEND, Patient Name: BERNA GARCIA Page [phone] at 1828 All edits/amendments must be made on the electronic document DICTATION DATE: 08/03/181827 FUNDING ANALYST: STEFAN 08/03/181827 RPT#: [id number] DC DATE: STATUS: ADM IN [facility] [address] [place] [address] END OF REPORT
--- NOTE | 2018-08-03 21:30 | NUR ---
PHONE CALL TO [facility] ANSWERING SERVICE FOR PHYSICIAN TO REPORT HTN, AND C/O PAIN
--- NOTE | 2018-08-03 22:00 | NUR ---
REPEAT PHONE CALL TO [facility] FOR A PHYSICIAN TO RETURN CALL
--- NOTE | 2018-08-03 22:18 | NUR ---
REPEAT CALL TO [facility] ANSWERING SERVICE TO REPORT NO RETURN PHONE CALL HAS BEEN MADE
--- NOTE | 2018-08-03 22:57 | NUR ---
RE[facility]AT PHONE CALL TO [facility] ANSWERING SERV[facility] REGARDING ATTEMPTS TO REPORT PT HYPERTENSION AND PAIN
--- NOTE | 2018-08-03 23:00 | NUR ---
RECEIVED CALL FROM ALFREDO ROBBINS, NEW ORDERS RECEIVED FOR HYDRALAZINE. SAWING AND ASSEMBLY SUPERVISOR HERE [phone] TO OVERRIDE MED IN [place].
[2018-08-04] VITALS (23 sets, daily range): BP systolic 146–184; BP diastolic 70–91
[2018-08-04 05:00] LABS: BASOPHILS 0.4 % (0-2); HEMATOCRIT 31.1 % (36.0-48.0); HEMOGLOBIN 9.7 g/dL (12-16); IMMATURE GRANULOCYTES 0.3 % (0-5); LYMPHOCYTES 6.3 % (15-50); MCH 28.7 pg (26.0-34.0); MCHC 31.2 g/dL (31.0-37.0); MEAN PLATELET VOLUME 10.7 fL (7.4-10.4); MONOCYTES 5.4 % (2-11); NEUTROPHILS 86.6 % (40-80); PLATELET COUNT 168 10x3/uL (130-400); RBC 3.38 10x6/uL (4.00-5.40); WBC 6.8 10x3/uL (4.8-10.8)
[2018-08-04 05:21] LABS: ALBUMIN 1.8 g/dL (3.4-5.0); ANION GAP 12.7 mmol/L (8-16); BILIRUBIN - TOTAL 0.46 mg/dL (0.2-1.3); CALCIUM 7.6 mg/dL (8.5-10.1); CARBON DIOXIDE 29.8 mmol/L (21.0-32.0); CREATININE - SERUM 2.3 mg/dL (0.6-1.3); POTASSIUM - SERUM 4.5 mmol/L (3.5-5.1); PROTEIN - SERUM 5.6 g/dL (6.4-8.2)
--- NOTE | 2018-08-04 07:00 | NUR ---
SHIFT ASSESSMENT COMPLETED, PT CARE ASSUMED. MONITORS ON AND WORKING, VITALS STABLE. BIPAP ON, BRAY STAT LOCKED IN PLACE, SEE FLOW SHEET FOR FURTHER DETAILS. WILL CONTINUE TO OBSERVE.
--- NOTE | 2018-08-04 09:00 | NUR ---
PT TURNED AND REPOSITIONED FOR COMFORT, MONITORS ON AND WORKING. VITALS STABLE, PT REMAINS ON BIPAP. WILL CONTINUE TO OBSERVE.
--- NOTE | 2018-08-04 09:14 | NUR ---
NUTRITION F/U PT NOW ON BIPAP, SLEEPING. ISOLATION. NURSING REPORTS PT UNABLE TO TOLERATE DIET 2/2 BIPAP. WILL CONTINUE TO MONITOR PT PROGRESS. RD FOLLOWING
--- NOTE | 2018-08-04 11:00 | NUR ---
PT TURNED AND REPOSITIONED FOR COMFORT, NO FURTHER CHANGES, SEE FLOW SHEET FOR FURTHER DETAILS. WILL CONTINUE TO OBSERVE.
--- NOTE | 2018-08-04 13:00 | NUR ---
PT REMAINS ON BIPAP EXCEPT FOR SHORT PERIODS AT A TIME TO TAKE MEDS, MONITORS ON AND WORKING, WILL CONTINUE TO OBSERVE.
--- NOTE | 2018-08-04 15:00 | NUR ---
NO CHANGES, PT TURNED AND REPOSITIONED, SEE FLOW SHEET FOR FURTHER DETAILS. WILL CONTINUE TO OBSERVE.
--- NOTE | 2018-08-04 16:31 | MORECARE ---
CASE MANAGEMENT DISCHARGE SUMMARY PATIENT: BERNA GARCIA UNIT: [id number] ADM DATE: 07/27/18 AGE: 48 : 74 SEX: F ROOM/BED: D.2307 AUTHOR: LAURITA,DOC PHYSICIAN: REFERRING PHYSICIAN: KIN CAICEDO MD DATE OF SERVICE: 08/04/18 Discharge Plan Patient Name: BERNA GARCIA Facility: [facility]:[place] : 1970 Planned Disposition: Anticipated Discharge Date: Discharge Date: Expected LOS: Initial Reviewer: [email or web address] Initial Review Date: 08/03/2018 Generated: 08/04/18 5:30 pm Comments DCP- Discharge Planning Updated by [email or web address]: Chloe Hampton on 08/04/18 3:[address] CM spoke with patient nurse. She stated that patient was off BiPap for meds earlier and stated it was hard to breathe. Patient is currently back on BiPap. CM was told that patient the contact number Brenda Celeste was patients ex-husbands best friend [phone]. Patient has two minor children Milagros [phone]. (daughter) and a son Shanthi Nicole. CM also has a number for an uncle Steven [phone]. CM can't obtain verbal permission to speak to these contacts due to patients respiratory status. CM was notified to find out about status of minor children. CM also needs to find out about family support with patients needs upon discharge. Since patient is uninsured will be very difficult to find any placement. KIRSTEN was able to obtain from a nursing note that [facility] Counselor Patricio Walterkandy [phone]. Spooler. CM did attempted to call Patricio to see if he could possibly release any information regarding home situation. CM left message for Patricio to call back. CM will check with patient in am to see if she can give permission to speak to contacts. CM will continue to follow and assist as needed with discharge planning needs. DCP- Discharge Planning Updated by [email or web address]: Chloe Hampton on 08/03/18 5:[address] CM attempted to visit with patient regarding discharge planning/ needs. Patient currently on BiPAP no family available. CM will continue to follow and assist as needed with discharge planning / needs DCPIA - Discharge Planning Initial Assessment Updated by [email or web address]: Brandin Cartwright on 08/02/18 9:02 am * Preadmission Environment Acute Care Facility * Facility Name [facility], [place], [place]. * List name and contact numbers for known caregivers / representatives who currently or will assist patient after discharge: ROYCE, SISTER IN LAW, YARELIS GARCIA, MINOR SON, FADY, FAMILY FRIEND, Last DP export: 08/03/18 5:28 pm Patient Name: BERNA GARCIA Page [phone] at 1631 All edits/amendments must be made on the electronic document DICTATION DATE: 08/04/181629 EYEGLASS FRAME TRUER: STEFAN 08/04/18 1630 RPT#: [id number] DC DATE: STATUS: ADM IN [facility] [address] [place] [address] END OF REPORT
--- NOTE | 2018-08-04 17:00 | NUR ---
PT TURNED AND REPOSITIONED FOR COMFORT, PT REMAINS ON BIPAP, NO CHANGES, WILL CONTINUE TO OBSERVE.
[2018-08-05] VITALS (23 sets, daily range): BP systolic 128–162; BP diastolic 67–79
[2018-08-05 04:21] LABS: BASOPHILS 0.8 % (0-2); EOSINOPHILS 1.6 % (0-7); HEMATOCRIT 30.8 % (36.0-48.0); HEMOGLOBIN 9.7 g/dL (12-16); IMMATURE GRANULOCYTES 0.2 % (0-5); LYMPHOCYTES 17.3 % (15-50); MCH 29.3 pg (26.0-34.0); MCHC 31.5 g/dL (31.0-37.0); MCV 93.1 fL (80.0-100.0); MEAN PLATELET VOLUME 10.5 fL (7.4-10.4); MONOCYTES 6.9 % (2-11); NEUTROPHILS 73.2 % (40-80); PLATELET COUNT 176 10x3/uL (130-400); RBC 3.31 10x6/uL (4.00-5.40); RDW 16.1 % (11.5-14.5); WBC 5.1 10x3/uL (4.8-10.8)
[2018-08-05 04:42] LABS: ALBUMIN 1.7 g/dL (3.4-5.0); ANION GAP 11.9 mmol/L (8-16); BILIRUBIN - TOTAL 0.54 mg/dL (0.2-1.3); CALCIUM 7.7 mg/dL (8.5-10.1); CARBON DIOXIDE 31.2 mmol/L (21.0-32.0); CREATININE - SERUM 2.6 mg/dL (0.6-1.3); POTASSIUM - SERUM 4.1 mmol/L (3.5-5.1); PROTEIN - SERUM 5.7 g/dL (6.4-8.2)
--- NOTE | 2018-08-05 07:00 | NUR ---
SHIFT ASSESSMENT COMPLETED, PT CARE ASSUMED. MONITORS ON AND WORKING, VITALS STABLE. 02 ON 40% BIPAP PT TOLERATING WELL. NO SIGNS/SYMPTOMS OF PAIN OR DISCOMFORT NOTED AT THIS TIME. CALL LIGHT WTIHIN REACH, WILL CONTINUE TO OBSERVE.
[2018-08-05 07:30] LABS: ANTI-HU ANTIBODIES <1:10 titer (()); ANTI-YO ANTIBODIES <1:10 titer (())
--- NOTE | 2018-08-05 09:00 | NUR ---
PT TURNED AND REPOSITIONED FOR COMFORT, PT REMAINS ON BIPAP, ELECTRONIC EQUIPMENT SET UP OPERATOR AT BEDSIDE, UPDATE PROVIDED, MONITORS ON AND WORKING. VITALS STABLE, CALL LIGHT WITHIN REACH, WILL CONTINUE TO OBSERVE.
--- NOTE | 2018-08-05 11:00 | NUR ---
PT TURNED AND REPOSITIONED, MONITORS ON AND WORKING. VITALS STABLE, SEE FLOW SHEET FOR FURTHER DETAILS, CALL LIGHT WITHIN REACH, WILL CONTINUE TO OBSERVE.
--- NOTE | 2018-08-05 13:00 | NUR ---
PT TURNED AND REPOSITIONED FOR COMFORT, NO CHANGES, CALL LIGHT WTIHIN REACH, WILL CONTINUE TO OBSERVE.
--- NOTE | 2018-08-05 15:00 | NUR ---
MONITORS ON AND WORKING. VITALS STABLE, SEE FLOW SHEET FOR FURTHER DETAILS. WILL CONTINUE TO OBSERVE.
--- NOTE | 2018-08-05 16:15 | MORECARE ---
CASE MANAGEMENT DISCHARGE SUMMARY PATIENT: BERNA GARCIA UNIT: [id number] ADM DATE: 07/27/18 AGE: 48 : 74 SEX: F ROOM/BED: D.2307 AUTHOR: LAURITA,DOC PHYSICIAN: REFERRING PHYSICIAN: KIN CAICEDO MD DATE OF SERVICE: 08/05/18 Discharge Plan Patient Name: BERNA GARCIA Facility: [facility]:[place] : 1970 Planned Disposition: Anticipated Discharge Date: Discharge Date: Expected LOS: Initial Reviewer: [email or web address] Initial Review Date: 08/03/2018 Generated: 08/05/18 5:15 pm Comments DCP- Discharge Planning Updated by [email or web address]: Chloe Hampton on 08/05/18 3:[address] Nursing staff stated that patient's customer relations representative was here this am. He stated that the patients children are in the care of the uncle (Steven [phone])?? Nursing didn't get name or phone number of customer relations representative or uncle. Patient is still on BiPap currently. CM will continue to follow and assist as needed with discharge planning/ needs. DCP- Discharge Planning Updated by [email or web address]: Chloe Hampton on 08/04/18 3:[address] CM spoke with patient nurse. She stated that patient was off BiPap for meds earlier and stated it was hard to breathe. Patient is currently back on BiPap. CM was told that patient the contact number Brenda Celeste was patients ex-husbands best friend [phone]. Patient has two minor children Milagros [phone]. (daughter) and a son Shanthi Nicole. CM also has a number for an uncle Steven [phone]. CM can't obtain verbal permission to speak to these contacts due to patients respiratory status. CM was notified to find out about status of minor children. CM also needs to find out about family support with patients needs upon discharge. Since patient is uninsured will be very difficult to find any placement. CM was able to obtain from a nursing note that [facility] Counsel[facility] Patricio Jones [phone]. Rn Gyn. CM did attempted to call Patricio to see if he could possibly release any information regarding home situation. CM left message for Patricio to call back. CM will check with patient in am to see if she can give permission to speak to contacts. CM will continue to follow and assist as needed with discharge planning needs. DCP- Discharge Planning Updated by [id number]: Chloe Hampton on 08/03/18 5:[address] CM attempted to visit with patient regarding discharge planning/ needs. Patient currently on BiPAP no family available. CM will continue to follow and assist as needed with discharge planning / needs DCPIA - Discharge Planning Initial Assessment Updated by [email or web address]: Brandin Cartwright on 08/02/18 9:02 am * Preadmission Environment Acute Care Facility * Facility Name [place], [place]. * List name and contact numbers for known caregivers / representatives who currently or will assist patient after discharge: ROYCE, SISTER IN LAW, YARELIS GARCIA, MINOR SON, FADY, FAMILY FRIEND, Last DP export: 08/04/18 3:30 pm Patient Name: BERNA GARCIA Page [phone] at 1615 All edits/amendments must be made on the electronic document DICTATION DATE: 08/05/181614 SECURITIES AND REAL ESTATE DIRECTOR: STEFAN 08/05/181614 RPT#: [id number] DC DATE: STATUS: ADM IN [facility] [address] [place] [address] END OF REPORT
--- NOTE | 2018-08-05 17:00 | NUR ---
NO CHANGES, MONITORS ON AND WORKING, VITALS STABLE, WILL CONTINUE TO OBSERVE.
--- NOTE | 2018-08-05 19:00 | NUR ---
REPORT REC'D, PT'S CARE ASSUMED. ASSESSMENT COMPLEETED. SEE FLOW SHEETS FOR ALL FINDINGS. PT AROUSES EASILY WITH VOICES. SR ON CM WITH HR AT 84BPM. CONT ON BIPAP. MOUTH CARE PROVIDED. REPOSITIONED FOR COMFORT. CONT TO MONITOR.
--- NOTE | 2018-08-05 21:00 | NUR ---
NO VISITORS AT THIS TIME. SCHEDULED MEDS GIVEN PER ORDER. NO NEEDS VOICES AT THIS TIME. VSS. CPOC.
--- NOTE | 2018-08-05 23:00 | NUR ---
REASSESSMENT COMPLETED PER FLOWSHEETS. NO SIGNS OF DISTRESS NOTED AT THIS TIME. CONT ON BIPAP PER ORDER. VSS. CPOC.
[2018-08-06] VITALS (25 sets, daily range): BP systolic 130–165; BP diastolic 63–78
--- NOTE | 2018-08-06 01:00 | NUR ---
PT RESTING QUIETLY WITHOUT DISTRSS ON BIPAP. VSS.
--- NOTE | 2018-08-06 03:00 | NUR ---
REASSESSMENT COMPLETED PER FLOWSHEETS. NO ACUTE CHANGES IN PT'S STATUS NOTED. VSS.CPOC.
[2018-08-06 03:08] LABS: BASOPHILS 1.2 % (0-2); EOSINOPHILS 2.2 % (0-7); HEMATOCRIT 30.1 % (36.0-48.0); HEMOGLOBIN 9.4 g/dL (12-16); IMMATURE GRANULOCYTES 0.5 % (0-5); LYMPHOCYTES 17.7 % (15-50); MCH 29.3 pg (26.0-34.0); MCHC 31.2 g/dL (31.0-37.0); MCV 93.8 fL (80.0-100.0); MONOCYTES 9.2 % (2-11); NEUTROPHILS 69.2 % (40-80); RBC 3.21 10x6/uL (4.00-5.40); RDW 15.6 % (11.5-14.5); WBC 4.1 10x3/uL (4.8-10.8)
[2018-08-06 03:16] LABS: ANION GAP 20.4 mmol/L (8-16); BILIRUBIN - TOTAL 0.46 mg/dL (0.2-1.3); CALCIUM 7.7 mg/dL (8.5-10.1); CARBON DIOXIDE 24.2 mmol/L (21.0-32.0); CREATININE - SERUM 2.8 mg/dL (0.6-1.3); POTASSIUM - SERUM 4.6 mmol/L (3.5-5.1); PROTEIN - SERUM 5.7 g/dL (6.4-8.2)
[2018-08-06 03:20] LABS: PLATELET COUNT 122 10x3/uL (130-400)
[2018-08-06 03:23] LABS: ALBUMIN 1.9 g/dL (3.4-5.0)
--- NOTE | 2018-08-06 07:00 | NUR ---
SHIFT ASSESSMENT COMPLETED. PT CARE ASSUMED, MONITORS ON AND WORKING, VITALS STABLE. SEE FLOW SHEET FOR FURTHER DETAILS, WILL CONTINUE TO OBSERVE.
--- NOTE | 2018-08-06 09:00 | NUR ---
PT ON 4L NC, PT TOLERATING WELL. PT AWAKE AND ALERT, MONITORS ON AND WORKING, VITALS STABLE. BRAY STAT LOCKED IN PLACE, NO SIGNS/SYMPTOMS OF PAIN OR DISCCOMFORT NOTED AT THIS TIME. WILL CONTINUE TO OBSERVE.
--- NOTE | 2018-08-06 09:42 | NUR ---
Nutrition follow-up: Pt on BIPAP and unable to eat 2/2 can't breath Labs reviewed Wt: 139# -> 3# loss in [address] NGT and start TF 2/2 BIPAP Recommend starting ProcalAmine PPN @ 75 ml/hr wiht 20% 250 ml intralipids Q day until PEG tube placement and/or pts breathing imrproves. RDN following.
--- NOTE | 2018-08-06 11:00 | NUR ---
PT TURNED AND REPOSITIONED, NO SIGNS/SYMPTOMS OF PAIN OR DISCOMFORT NOTED AT THIS TIME, PT REMAINS ON 4L NC AND TOLERATING WELL. SEE FLOW SHEET FOR FURTHER DETIALS, CALL LIGHT WITHIN REACH, WILL CONTINUE TO OBSERVE.
--- NOTE | 2018-08-06 13:00 | NUR ---
FAMILY AT BEDSIDE, UPDATE PROVIDED, PT TURNED AND REPOSITIONED FOR COMFORT, PHYSICAL THERAPY AT BEDSIDE, PT TOLERATING WELL. MONITORS ON AND WORKING WILL CONTINUE TO OBSERVE.
--- NOTE | 2018-08-06 15:00 | NUR ---
PT TURNED AND REPOSITIONED FOR COMFORT, FAMILY AT BEDSIDE, UPDATE PROVIDED, PT CONTINUES TO TOLERATE 4L NC, MONITORS ON AND WORKING, VITALS STABLE, SEE FLOW SHEET FOR FURTHER DETAILS. WILL CONTINUE TO OBSERVE.
--- NOTE | 2018-08-06 16:57 | MORECARE ---
CASE MANAGEMENT DISCHARGE SUMMARY PATIENT: BERNA GARCIA UNIT: [id number] ADM DATE: 07/27/18 AGE: 48 : 74 SEX: F ROOM/BED: D.2307 AUTHOR: LAURITA,DOC PHYSICIAN: REFERRING PHYSICIAN: KIN CAICEDO MD DATE OF SERVICE: 08/06/18 Discharge Plan Patient Name: BERNA GARCIA Facility: [facility]:[place] : 1970 Planned Disposition: Home Anticipated Discharge Date: Discharge Date: Expected LOS: Initial Reviewer: [email or web address] Initial Review Date: 08/03/2018 Generated: 08/06/18 5:57 pm Comments DCP- Discharge Planning Updated by [id number]: Chloe Hampton on 08/05/18 3:[address] Nursing staff stated that patient's chief mate was here this am. He stated that the patients children are in the care of the uncle (Steven [phone])?? Nursing didn't get name or phone number of chief mate or uncle. Patient is still on BiPap currently. CM will continue to follow and assist as needed with discharge planning/ needs. DCP- Discharge Planning Updated by [id number]: Chloe Hampton on 08/04/18 3:[address] CM spoke with patient nurse. She stated that patient was off BiPap for meds earlier and stated it was hard to breathe. Patient is currently back on BiPap. CM was told that patient the contact number Brenda Celeste was patients ex-husbands best friend [phone]. Patient has two minor children Milagros [phone]. (daughter) and a son Shanthi Nicole. CM also has a number for an uncle Steven [phone]. CM can't obtain verbal permission to speak to these contacts due to patients respiratory status. CM was notified to find out about status of minor children. CM also needs to find out about family support with patients needs upon discharge. Since patient is uninsured will be very difficult to find any placement. KIRSTEN was able to obtain from a nursing note that [facility] Counselor Patricio Jones [phone]. Talent Acquisition Relationship Manager. CM did attempted to call Patricio to see if he could possibly release any information regarding home situation. CM left message for Patricio to call back. CM will check with patient in am to see if she can give permission to speak to contacts. CM will continue to follow and assist as needed with discharge planning needs. DCP- Discharge Planning Updated by [email or web address]: Chloe Hampton on 08/03/18 5:[address] CM attempted to visit with patient regarding discharge planning/ needs. Patient currently on BiPAP no family available. CM will continue to follow and assist as needed with discharge planning / needs DCPIA - Discharge Planning Initial Assessment Updated by [email or web address]: Brandin Cartwright on 08/02/18 9:02 am * Preadmission Environment Acute Care Facility * Facility Name [facility], [place], [place]. * List name and contact numbers for known caregivers / representatives who currently or will assist patient after discharge: ROYCE, SISTER IN LAW, YARELIS GARCIA, MINOR SON, FADY, FAMILY FRIEND, Last DP export: 08/05/18 3:15 pm Patient Name: BERNA GARCIA Page [phone] at 1657 All edits/amendments must be made on the electronic document DICTATION DATE: 08/06/181656 ANIMAL NUTRITION CONSULTANT: STEFAN 08/06/181656 RPT#: [id number] DC DATE: STATUS: ADM IN [facility] [address] [place] [address] END OF REPORT
--- NOTE | 2018-08-06 17:00 | NUR ---
PT TURNED AND REPOSITIONED FOR COMFORT, MONITORS ON AND WORKING. SEE FLOW SHEET FOR FURTHER DETIALS. WILL CONTINUE TO OBSERVE.
--- NOTE | 2018-08-06 17:21 | MORECARE ---
CASE MANAGEMENT DISCHARGE SUMMARY PATIENT: BERNA GARCIA UNIT: [id number] ADM DATE: 07/27/18 AGE: 48 : 74 SEX: F ROOM/BED: D.2307 AUTHOR: LAURITA,DOC PHYSICIAN: REFERRING PHYSICIAN: KIN CAICEDO MD DATE OF SERVICE: 08/06/18 Discharge Plan Patient Name: BERNA GARCIA Facility: [facility]:[place] : 1970 Planned Disposition: Home Anticipated Discharge Date: Discharge Date: Expected LOS: Initial Reviewer: [email or web address] Initial Review Date: 08/03/2018 Generated: 08/06/18 6:21 pm Comments DCP- Discharge Planning Updated by [email or web address]: Chloe Hampton on 08/06/18 4:[address] Patient Name: BERNA GARCIA Admission Status: Elective Accout number: [id number] Admission Date: 07-27-2018 : 1970 Admission Diagnosis:ACUTE POSTHEMORRHAGIC ANEMIA Attending: KIN CAICEDO Current LOS: 10 Anticipated DC Date: Planned Disposition: Home Primary Insurance: UNINSURED DISCOUNT PLAN Discharge Planning Comments: CM spoke with family that was visiting. Daughter Henrry and son Yarelis here today to visit along with other family member. The children are currently staying with an uncle Steven [phone]. They are planning on living with a friend Brenda Celeste when patient is discharged. [address] , [place] [address]. HENRRY stated that they will have family that will help care for patient once she is stable for discharge. CM will continue to follow and assist as needed with discharge planning needs. Communications Professional: Chloe Hampton DCP- Discharge Planning Updated by [id number]: Chloe Hampton on 08/05/18 3:[address] Nursing staff stated that patient's auditing coder was here this am. He stated that the patients children are in the care of the uncle (Steven [phone])?? Nursing didn't get name or phone number of auditing coder or uncle. Patient is still on BiPap currently. CM will continue to follow and assist as needed with discharge planning/ needs. DCP- Discharge Planning Updated by [email or web address]: Chloedania Chengr on 08/04/18 3:[address] CM spoke with patient nurse. She stated that patient was off BiPap for meds earlier and stated it was hard to breathe. Patient is currently back on BiPap. CM was told that patient the contact number Brenda Celeste was patients ex-husbands best friend [phone]. Patient has two minor children Henrry [phone]. (daughter) and a son Shanthi Nicole. CM also has a number for an uncle Steven [phone]. CM can't obtain verbal permission to speak to these contacts due to patients respiratory status. CM was notified to find out about status of minor children. CM also needs to find out about family support with patients needs upon discharge. Since patient is uninsured will be very difficult to find any placement. CM was able to obtain from a nursing note that [facility] Counsel[facility] Patricio Walterkandy [phone]. Skid Strapper. CM did attempted to call Patricio to see if he could possibly release any information regarding home situation. CM left message for Patricio to call back. CM will check with patient in am to see if she can give permission to speak to contacts. CM will continue to follow and assist as needed with discharge planning needs. DCP- Discharge Planning Updated by [email or web address]: Chloe Hampton on 08/03/18 5:[address] CM attempted to visit with patient regarding discharge planning/ needs. Patient currently on BiPAP no family available. CM will continue to follow and assist as needed with discharge planning / needs DCPIA - Discharge Planning Initial Assessment Updated by [email or web address]: Brandin Cartwright on 08/02/18 9:02 am * Preadmission Environment Acute Care Facility * Facility Name [facility], [place], [place]. * List name and contact numbers for known caregivers / representatives who currently or will assist patient after discharge: ROYCE, SISTER IN LAW, YARELIS GARCIA, MINOR SON, FADY, FAMILY FRIEND, Last DP export: 08/06/18 3:57 pm Patient Name: BERNA GARCIA Page 15785 at 1721 All edits/amendments must be made on the electronic document DICTATION DATE: 08/06/181719 LEAD SECTION SUPERVISOR: STEFAN 08/06/181719 RPT#: [id number] DC DATE: STATUS: ADM IN [facility] [address] [place] [address] END OF REPORT
--- NOTE | 2018-08-06 19:00 | NUR ---
PT TURNED AND REPOSITIONED FOR COMFORT, PT TOLERATING 02 NC ON 4 L, MONITORS ON AND WORKING. CALL LIGHT WITHIN REACH, WILL CONTINUE TO OBSERVE.
--- NOTE | 2018-08-06 21:00 | NUR ---
PLACED PT BACK ON BIPAP, NO SIGNS/SYMPTOMS OF PAIN OR DISCOMFORT NOTED AT THIS TIME, MONITORS ON AND WORKING. WILL CONTINUE TO OBSERVE.
--- NOTE | 2018-08-06 23:28 | NUR ---
THE PATIENT APPEARS TO BE SLEEPING WHEN STAFF ENTERED EHR ROOM. BE DIS IN THE LOW POSITION WITH SIDERAILS X2 AND CALL LIGHT WITHIN REACH. BRAY CATHETER PRODUCING CLEAR YELLO WURINE. ALL ALARM CHECKED AND FUNDTIONING. NURSE STATIONED OUTSIDE THE PATIENTS ROOM. THE PATIENT APPEARS COMFORTABLE WITH NO COCNERNS AT THIS TIME.
[2018-08-07] VITALS (24 sets, daily range): BP systolic 121–153; BP diastolic 63–77
--- NOTE | 2018-08-07 03:52 | NUR ---
BED IN THE LOW POSITION WITH SIDERAILS X2. ALL MONITORS WORKING APPROPRIATELY. THE PATIENT APPEARS COMFORTABLE.
[2018-08-07 04:33] LABS: BASOPHILS 0.8 % (0-2); EOSINOPHILS 3.7 % (0-7); HEMATOCRIT 28.9 % (36.0-48.0); HEMOGLOBIN 8.9 g/dL (12-16); IMMATURE GRANULOCYTES 0.3 % (0-5); LYMPHOCYTES 23.8 % (15-50); MCH 28.8 pg (26.0-34.0); MCHC 30.8 g/dL (31.0-37.0); MCV 93.5 fL (80.0-100.0); MEAN PLATELET VOLUME 10.1 fL (7.4-10.4); MONOCYTES 11.4 % (2-11); RBC 3.09 10x6/uL (4.00-5.40); RDW 15.2 % (11.5-14.5); WBC 3.8 10x3/uL (4.8-10.8)
[2018-08-07 04:44] LABS: PLATELET COUNT 174 10x3/uL (130-400)
[2018-08-07 04:57] LABS: ALBUMIN 1.9 g/dL (3.4-5.0); ANION GAP 17.9 mmol/L (8-16); BILIRUBIN - TOTAL 0.37 mg/dL (0.2-1.3); CALCIUM 7.8 mg/dL (8.5-10.1); CARBON DIOXIDE 26.2 mmol/L (21.0-32.0); CREATININE - SERUM 3.3 mg/dL (0.6-1.3); POTASSIUM - SERUM 4.1 mmol/L (3.5-5.1); PROTEIN - SERUM 5.6 g/dL (6.4-8.2)
--- NOTE | 2018-08-07 07:00 | NUR ---
SHIFT ASSESSMENT COMPLETED. PT CARE ASSUMED. MONITORS ON AND WORKING, VITALS STABLE, PT RESTING CALMLY IN BED, BIPAP ON, CALL LIGHT WITHIN REACH, WILL CONTINUE TO OBSERVE.
[2018-08-07 07:26] LABS: ALDOSTERONE <1.0 ng/dL (0.0-30.0)
--- NOTE | 2018-08-07 09:00 | NUR ---
PT TURNED AND REPOSITIONED FOR COMFORT, NO SIGNS/SYMPTOMS OF PAIN OR DISCOMFORT NOTED AT THIS TIME, CALL LIGHT WITHIN REACH, WILL CONTINUE TO OBSERVE.
--- NOTE | 2018-08-07 11:00 | NUR ---
PT SITTING UP IN BED, 02 ON 4L NC, PT TOLERATING WELL. NO SIGNS/SYMPTOMS OF PAIN OR DISCOMFORT NOTED AT THIS TIME, WILL CONTINUE TO OBSERVE.
--- NOTE | 2018-08-07 13:00 | NUR ---
PT UP TO BEDSIDE CHAIR. PT TOLERATING WELL, NO SIGNS/SYMPTOMS OF PAIN OR DISCOMFORT NOTED, MONITORS ON AND WORKING, VITALS STABLE, CALL LIGHT WITHIN REACH, WILL CONTINUE TO OBSERVE.
--- NOTE | 2018-08-07 15:00 | NUR ---
NO CHNAGES, PT UP IN CHAIR, MONITORS ON AND WORKING VITALS STABLE. SEE FLOW SHEET FOR FURTHER DETAILS. WILL CONTINUE TO OBSERVE.
--- NOTE | 2018-08-07 17:00 | NUR ---
PT SITTING UP IN CHAIR, NO CHANGES, MONITORS ON AND WORKING, VITALS STABLE, WILL CONTINUE TO OBSERVE.
[2018-08-08] VITALS (18 sets, daily range): BP systolic 124–149; BP diastolic 67–75
[2018-08-08 03:13] LABS: BASOPHILS 0.6 % (0-2); EOSINOPHILS 6.1 % (0-7); HEMATOCRIT 28.1 % (36.0-48.0); HEMOGLOBIN 8.8 g/dL (12-16); IMMATURE GRANULOCYTES 0.3 % (0-5); LYMPHOCYTES 19.6 % (15-50); MCH 28.9 pg (26.0-34.0); MCHC 31.3 g/dL (31.0-37.0); MCV 92.1 fL (80.0-100.0); MEAN PLATELET VOLUME 10.3 fL (7.4-10.4); MONOCYTES 16.9 % (2-11); NEUTROPHILS 56.5 % (40-80); PLATELET COUNT 174 10x3/uL (130-400); RBC 3.05 10x6/uL (4.00-5.40); RDW 15.1 % (11.5-14.5); WBC 3.6 10x3/uL (4.8-10.8)
[2018-08-08 03:28] LABS: ANION GAP 14.3 mmol/L (8-16); CARBON DIOXIDE 29.6 mmol/L (21.0-32.0); CREATININE - SERUM 3.5 mg/dL (0.6-1.3); POTASSIUM - SERUM 3.9 mmol/L (3.5-5.1)
--- NOTE | 2018-08-08 07:45 | NUR ---
REC'ED REPORT FROM OUT GOING RN - PT RESTING WITH EYES CLOSED - BIPAP ON - RESPIRATIONS REG RATE AND RHYTHM - ENTERED 1 UNIT PRBC PER MD ORDER - CPOC
--- NOTE | 2018-08-08 08:54 | NUR ---
PATIEINT SITTING UP IN BED EATING BREAKFAST - P.T. AT BEDSIDE TO TRANSFERR PT TO CHAIR - ASKED TO COME BACK AFTER SHE FINISHES EATING AND THIS RN RE-PLACES ASA LOPEZ - P.T. AGREED - AWAITING PT TO FINISH BREAKFAST
--- NOTE | 2018-08-08 09:40 | NUR ---
BRYNN ISSA, INSTRUCTED not TO GIVE PRBC UNLESS HEMG<8. (8.8 TODAY) WILL CANCEL PRBC ORDER ADN CHANGE NURSING INSTRUCTIONS - CPOUC
--- NOTE | 2018-08-08 09:54 | NUR ---
CHANEGD OUT BRAY CATHETER - WILL OBTAIN CLEAN CATCH PER ORDER
--- NOTE | 2018-08-08 10:42 | NUR ---
DR. REHMAN ON UNIT FOR ASSESSMENT - AWATING ORDERS - P.T. AT BEDSIDE TRANSFERED PT TO CHAIR. PATIENT ASKED FOR A WARM BLANKET - CPOC
--- NOTE | 2018-08-08 12:00 | NUR ---
FAMILY IN ROOM - ANSWERED ALL QUESTIONS TO FAMILY'S SATISFACTION - ASKED FRO CHICKEN BROTH BUT EXPLIANED PATIENT HAS ELEVATED SODIUM AND BROTH IS NOT A GOOD CHOICE - OFFERED WATER, JUICE, COFFEE PER DR. HAAS'S REQEUST. CONSENT INTERPERTED AND SINGED BY FAMILY FRIEND FOR TRIALYSIS PLACEMENT - PT DENIED ANY CONCERNS CPOC
[2018-08-08 12:49] LABS: APPEARANCE CLOUDY (CLEAR); BILIRUBIN NEGATIVE (NEGATIVE); COLOR YELLOW (YELLOW); GLUCOSE 1000 mg/dL (NEGATIVE); KETONE LARGE mg/dL (NEGATIVE); NITRITE NEGATIVE (NEGATIVE); PROTEIN 3+ mg/dL (NEGATIVE)
[2018-08-08 12:50] LABS: AMORPHOUS SEDIMENT >1+ /lpf (NONE SEEN); BACTERIA MANY /hpf (NONE SEEN); EPITHELIAL CELLS 0-5 /hpf (0-5); MUCUS >1+ /lpf (NONE SEEN)
[2018-08-08 12:51] LABS: GRANULAR CAST 0-5 /lpf (NONE SEEN); HYALINE CAST 0-5 /lpf (NONE SEEN); RED CELL CAST RARE /lpf (NONE SEEN)
--- NOTE | 2018-08-08 14:30 | NUR ---
P.T. AT BEDSIDE OFFERED TO TRANSFERR PT BACK TO BED - PT ASKED TO CONTINUE TO SIT UP IN CHAIR - CPOC
--- NOTE | 2018-08-08 16:00 | NUR ---
TRANSFERRED PT BACK TO BED ASSISTANCE X 2 - CPOC - PT ASKED TO SLEEEP ON HER SIDE
--- NOTE | 2018-08-08 18:26 | NUR ---
TRANSFERRED PT VIA BED TO ROOM 2230 - WITH ALL BELONGINGS AND MEDICATION - NOTIFIED FAMILY (MELIZA/YARELIS) AND JOHN.
--- NOTE | 2018-08-08 18:52 | NUR ---
TRANSFER FROM ICU TO ROOM 0. AWAKE AND ALERT TO SELF. RESP EVEN AND UNLABORED. NO DISTRESS NOTED. ASSESSMENT COMPLETED. C/L IN REACH AT BEDSIDE.
--- NOTE | 2018-08-08 20:30 | NUR ---
CALLED [employer] PERSON FOR TRANSLATION PHONE. SAND TEMPERER IN USE, AND EFFECTIVE. PT DENIES PAIN, BUT REPORTS DIFFICULTY BREATHING AND REQUESTS TO BE SAT UP. PT PUT ON CONTINUOUS PULSE MONITORING.
--- NOTE | 2018-08-08 23:35 | NUR ---
SUPINE IN BED, EYES CLOSED. RESPIRATIONS 12, APNEIC PERIODS NOTED. RT CALLED FOR BIPAP. WILL CONTINUE TO MONITOR.
[2018-08-09 00:42] VITALS: BP 137/71
--- NOTE | 2018-08-09 01:00 | NUR ---
TELEMETRY APPLIED AND READING 68 NORMAL SINUS. WILL CONTINUE TO MONITOR.
--- NOTE | 2018-08-09 01:30 | NUR ---
I have reviewed this patient and I concur with the Shift Assessment completed by the Licensed Practical Nurse today this shift.
--- NOTE | 2018-08-09 04:00 | NUR ---
IV TO RIGHT WRIST DCd WITH CATHETER INTACT. 22G IV RESITED TO LEFT FOREARM, 1ST ATTEMPT. PT TOLERATED WELL. SALINE LOCKED, NO NO NEEDS AT THIS TIME, WILL CONTINUE TO MONITOR.
[2018-08-09 04:51] LABS: BASOPHILS 1.6 % (0-2); EOSINOPHILS 7.8 % (0-7); HEMATOCRIT 27.6 % (36.0-48.0); HEMOGLOBIN 8.9 g/dL (12-16); IMMATURE GRANULOCYTES 0.3 % (0-5); LYMPHOCYTES 20.9 % (15-50); MCH 29.2 pg (26.0-34.0); MCHC 32.2 g/dL (31.0-37.0); MCV 90.5 fL (80.0-100.0); MEAN PLATELET VOLUME 10.1 fL (7.4-10.4); MONOCYTES 14.1 % (2-11); NEUTROPHILS 55.3 % (40-80); PLATELET COUNT 174 10x3/uL (130-400); RBC 3.05 10x6/uL (4.00-5.40); WBC 3.2 10x3/uL (4.8-10.8)
[2018-08-09 05:07] VITALS: BP 144/70
[2018-08-09 05:10] LABS: ANION GAP 10.4 mmol/L (8-16); CALCIUM 7.5 mg/dL (8.5-10.1); CARBON DIOXIDE 32.4 mmol/L (21.0-32.0); CREATININE - SERUM 3.5 mg/dL (0.6-1.3); POTASSIUM - SERUM 3.8 mmol/L (3.5-5.1)
[2018-08-09 08:20] VITALS: BP 146/72
[2018-08-09 12:30] VITALS: BP 146/71
[2018-08-09 19:12] VITALS: BP 136/68
[2018-08-09 20:00] VITALS: BP 131/66
[2018-08-10 04:00] VITALS: BP 144/63
--- NOTE | 2018-08-10 04:49 | NUR ---
I have reviewed this patient and I concur with the Shift Assessment completed by the Licensed Practical Nurse today this shift.
[2018-08-10 07:07] LABS: ANION GAP 11.3 mmol/L (8-16); CALCIUM 7.6 mg/dL (8.5-10.1); CARBON DIOXIDE 31.5 mmol/L (21.0-32.0); CREATININE - SERUM 3.6 mg/dL (0.6-1.3); POTASSIUM - SERUM 3.8 mmol/L (3.5-5.1)
[2018-08-10 07:42] LABS: HEMATOCRIT 27.2 % (36.0-48.0); HEMOGLOBIN 8.7 g/dL (12-16); MCH 28.8 pg (26.0-34.0); MCV 90.1 fL (80.0-100.0); MEAN PLATELET VOLUME 10.7 fL (7.4-10.4); PLATELET COUNT 190 10x3/uL (130-400); RBC 3.02 10x6/uL (4.00-5.40); WBC 2.8 10x3/uL (4.8-10.8)
--- NOTE | 2018-08-10 07:50 | NUR ---
PATIENT IN BED WITH NO COMPLAINTS OR SIGNS OF DISTRSS. IV AND BRAY INTACT. CALL LIGHT WITHIN REACH.
[2018-08-10 09:06] VITALS: BP 141/76
[2018-08-10 09:38] LABS: BASOPHILS 2 % (0-2); EOSINOPHILS 11 % (0-7); LYMPHOCYTES 15 % (15-50); MONOCYTES 11 % (2-11); NEUTROPHILS 55 % (40-80); PLATELET ESTIMATE NORMAL
--- NOTE | 2018-08-10 13:00 | NUR ---
PATIENT SITTING UP IN CHAIR WITH IV INTACT. BRAY INTACT. NO COMPLAINTS. CALL LIGHT WITHIN REACH.
[2018-08-10 15:12] VITALS: BP 127/67
[2018-08-10 17:36] VITALS: BP 122/65
--- NOTE | 2018-08-10 18:55 | NUR ---
PATIENT IN BED WITH EYES CLOSED RESTING QUIETLY. NO COMPLAINTS OR SIGNS OF DISTRESS. CALL LIGHT WITHIN REACH.
[2018-08-10 20:00] VITALS: BP 128/65
--- NOTE | 2018-08-10 20:00 | NUR ---
RESTING IN BED NO APPARENT DISTRESS, SEE SHIFT ASSESSMENT, CALL LIGHT IN REACH
[2018-08-11 05:21] LABS: BASOPHILS 1.5 % (0-2); EOSINOPHILS 7.5 % (0-7); HEMATOCRIT 27.3 % (36.0-48.0); HEMOGLOBIN 8.7 g/dL (12-16); IMMATURE GRANULOCYTES 0.4 % (0-5); LYMPHOCYTES 29.7 % (15-50); MCH 28.7 pg (26.0-34.0); MCHC 31.9 g/dL (31.0-37.0); MCV 90.1 fL (80.0-100.0); MONOCYTES 12.8 % (2-11); NEUTROPHILS 48.1 % (40-80); PLATELET COUNT 185 10x3/uL (130-400); RBC 3.03 10x6/uL (4.00-5.40); RDW 15.2 % (11.5-14.5); WBC 2.7 10x3/uL (4.8-10.8)
[2018-08-11 05:40] LABS: ANION GAP 9.9 mmol/L (8-16); CALCIUM 7.4 mg/dL (8.5-10.1); CARBON DIOXIDE 32.8 mmol/L (21.0-32.0); CREATININE - SERUM 3.6 mg/dL (0.6-1.3); POTASSIUM - SERUM 3.7 mmol/L (3.5-5.1)
--- NOTE | 2018-08-11 07:30 | NUR ---
MORNING ASSESSMENT COMPLETE. SEE ASSESMENT FLOWSHEET FOR FURTHER DETAILS. PT LYING IN BED. DENIES NEEDS AT THIS TIME. CL IN REACH. SIDE RAILS UP X3 FOR PATIENT ASHLEY
[2018-08-11 09:43] VITALS: BP 143/71
[2018-08-11 12:35] VITALS: BP 125/80
--- NOTE | 2018-08-11 14:56 | NUR ---
NUTRITION F/U PT REMAINS IN ISOLATION. GASTRIC SOFT/DIABETIC DIET WITH ~ 25% INTAKE LUNCH. WILL ORDER NEPRO WITH BREAKFAST AND DINNER. RD FOLLOWING
[2018-08-11 16:28] VITALS: BP 134/71
[2018-08-11 22:37] VITALS: BP 118/59
--- NOTE | 2018-08-11 23:00 | NUR ---
PT REPORTS DIFFICULTY BREATHING. MOVED UP IN BED, HOB RAISED AND SHOWED PT BIPAP MASK AND ASKED IF SHE WANTED IT ON, PT SAID YES. RT NOTIFIED TO SET UP AND TURN ON. PT THANKED ME. NO OTHER NEEDS AT THIS MOMENT.
[2018-08-12 01:28] VITALS: BP 123/60
[2018-08-12 04:49] VITALS: BP 138/68
[2018-08-12 05:06] LABS: HEMATOCRIT 27.3 % (36.0-48.0); HEMOGLOBIN 8.7 g/dL (12-16); MCH 28.7 pg (26.0-34.0); MCHC 31.9 g/dL (31.0-37.0); MCV 90.1 fL (80.0-100.0); MEAN PLATELET VOLUME 10.7 fL (7.4-10.4); PLATELET COUNT 184 10x3/uL (130-400); RBC 3.03 10x6/uL (4.00-5.40); WBC 2.9 10x3/uL (4.8-10.8)
[2018-08-12 05:09] LABS: ANION GAP 6.3 mmol/L (8-16); CALCIUM 7.4 mg/dL (8.5-10.1); CARBON DIOXIDE 34.6 mmol/L (21.0-32.0); CREATININE - SERUM 3.3 mg/dL (0.6-1.3); POTASSIUM - SERUM 3.9 mmol/L (3.5-5.1)
[2018-08-12 05:50] LABS: EOSINOPHILS 2 % (0-7); LYMPHOCYTES 28 % (15-50); MONOCYTES 4 % (2-11); NEUTROPHILS 64 % (40-80); PLATELET ESTIMATE DECREASED
--- NOTE | 2018-08-12 08:00 | NUR ---
I have reviewed this patient and I concur with the Shift Assessment completed by the Licensed Practical Nurse today this shift.
--- NOTE | 2018-08-12 08:40 | NUR ---
The patient is awake and alert, she is unable to see in her right eye and she has minimal vision in her left eye. She is pleasant and cooperative. She requests the nurse assist her up in the bed. Did help her sit up in the bed. She denies any other needs at this time.
[2018-08-12 09:25] VITALS: BP 140/71
--- NOTE | 2018-08-12 11:00 | NUR ---
RECIEVED REPORT FROM JOEL RODRÍGUEZ RN. PT LYING IN BED RESTING COMFOTABLY. DENIES NEEDS AT THIS TIME.
[2018-08-12 13:13] VITALS: BP 135/68
[2018-08-12 16:28] VITALS: BP 139/78
[2018-08-12 20:00] VITALS: BP 124/61
[2018-08-13] VITALS: BP 132/69
--- NOTE | 2018-08-13 02:44 | NUR ---
C/O HEADACHE, REMOVED FROM BIPAP PER REQUEST. SAT UP IN BED. DENIES FURTHER NEEDS AT THIS TIME.
[2018-08-13 04:00] VITALS: BP 139/71
[2018-08-13 04:30] LABS: BASOPHILS 1.1 % (0-2); HEMOGLOBIN 8.5 g/dL (12-16); IMMATURE GRANULOCYTES 0.4 % (0-5); LYMPHOCYTES 32.7 % (15-50); MCH 28.5 pg (26.0-34.0); MCHC 31.5 g/dL (31.0-37.0); MCV 90.6 fL (80.0-100.0); MONOCYTES 8.7 % (2-11); NEUTROPHILS 49.1 % (40-80); PLATELET COUNT 172 10x3/uL (130-400); RBC 2.98 10x6/uL (4.00-5.40); WBC 2.6 10x3/uL (4.8-10.8)
[2018-08-13 05:14] LABS: ANION GAP 8.8 mmol/L (8-16); CALCIUM 7.1 mg/dL (8.5-10.1); CARBON DIOXIDE 32.4 mmol/L (21.0-32.0); POTASSIUM - SERUM 4.2 mmol/L (3.5-5.1)
[2018-08-13 09:35] VITALS: BP 135/63
--- NOTE | 2018-08-13 10:47 | NUR ---
ALERT AND ORIENTED WITH GENERALIZED WEAKNESS NOTED. TELEMETRY INTACT WITHSR 77. BLIND TO RT. EYE AND DENIES ANY APIN AND REPOSITIONED FOR COMFORT. EVF INFUSING AT PRESCRIBED RATE. LUNGS CTA. ENCOURAGED TO USE CALL LIGHT FOR ASSSIT.
--- NOTE | 2018-08-13 14:14 | NUR ---
PT BACK FROM PROCEDURE AND TOLERATED WELL.
--- NOTE | 2018-08-13 14:34 | MORECARE ---
CASE MANAGEMENT DISCHARGE SUMMARY PATIENT: BERNA GARCIA UNIT: [id number] ADM DATE: 07/27/18 AGE: 48 : 74 SEX: F ROOM/BED: D.2230 AUTHOR: LAURITA,DOC PHYSICIAN: REFERRING PHYSICIAN: KIN CAICEDO MD DATE OF SERVICE: 08/13/18 Discharge Plan Patient Name: BERNA GARCIA Facility: [facility]:[place] : 1970 Planned Disposition: Home Anticipated Discharge Date: Discharge Date: Expected LOS: Initial Reviewer: [email or web address] Initial Review Date: 08/03/2018 Generated: 08/13/18 3:34 pm Comments DCP- Discharge Planning Updated by [email or web address]: Kelsie Stuart on 08/13/18 1:[address] CM went to room, no family present. Patient is sleeping. I called and spoke to Ramin in [employer] and I faxed family practice and nephrology progress notes with problem list. He states he will see if she qualifies for emergency Medicaid. CM will continue to follow and assist with discharge planning/needs. DCP- Discharge Planning Updated by [id number]: Chloe Hampton on 08/06/18 3:[address] Patient Name: BERNA GARCIA Admission Status: Elective Accout number: [id number] Admission Date: 07-27-2018 : 1970 Admission Diagnosis:ACUTE POSTHEMORRHAGIC ANEMIA Attending: KIN CAICEDO Current LOS: 10 Anticipated DC Date: Planned Disposition: Home Primary Insurance: UNINSURED DISCOUNT PLAN Discharge Planning Comments: CM spoke with family that was visiting. Daughter Henrry and son Yarelis here today to visit along with other family member. The children are currently staying with an uncle Steven [phone]. They are planning on living with a friend Brenda Celeste when patient is discharged. [address] , [place] [address]. HENRRY stated that they will have family that will help care for patient once she is stable for discharge. CM will continue to follow and assist as needed with discharge planning needs. Slicing Machine Tender: Chloe Hampton DCP- Discharge Planning Updated by [email or web address]: Chloe Hamtpon on 08/05/18 2:[address] Nursing staff stated that patient's travel ot was here this am. He stated that the patients children are in the care of the uncle (Steven [phone])?? Nursing didn't get name or phone number of travel ot or uncle. Patient is still on BiPap currently. CM will continue to follow and assist as needed with discharge planning/ needs. DCP- Discharge Planning Updated by [id number]: Chloe Hampton on 08/04/18 2:[address] CM spoke with patient nurse. She stated that patient was off BiPap for meds earlier and stated it was hard to breathe. Patient is currently back on BiPap. CM was told that patient the contact number Brenda Celeste was patients ex-husbands best friend [phone]. Patient has two minor children Henrry [phone]. (daughter) and a son Shanthi Nicole. CM also has a number for an uncle Steven [phone]. CM can't obtain verbal permission to speak to these contacts due to patients respiratory status. CM was notified to find out about status of minor children. CM also needs to find out about family support with patients needs upon discharge. Since patient is uninsured will be very difficult to find any placement. CM was able to obtain from a nursing note that [facility] Counselor Patricio Jones [phone]. Tariff Compiling Clerk. CM did attempted to call Patricio to see if he could possibly release any information regarding home situation. CM left message for Patricio to call back. CM will check with patient in am to see if she can give permission to speak to contacts. CM will continue to follow and assist as needed with discharge planning needs. DCP- Discharge Planning Updated by [id number]: Chloe Chengr on 08/03/18 4:[address] CM attempted to visit with patient regarding discharge planning/ needs. Patient currently on BiPAP no family available. CM will continue to follow and assist as needed with discharge planning / needs DCPIA - Discharge Planning Initial Assessment Updated by [email or web address]: Brandin Cartwright on 08/02/18 9:02 am * Preadmission Environment Acute Care Facility * Facility Name [facility], [place], [place]. * List name and contact numbers for known caregivers / representatives who currently or will assist patient after discharge: ROYCE, SISTER IN LAW, YARELIS GARCIA, MINOR SON, FADY, FAMILY FRIEND, Last DP export: 08/06/18 3:21 pm Patient Name: BERNA GARCIA Page [id number] at 1434 All edits/amendments must be made on the electronic document DICTATION DATE: 08/13/181433 DIRECTOR ADVANCED: STEFAN 08/13/18 143 RPT#: [id number] DC DATE: STATUS: ADM IN [facility] [address] [place] [address] END OF REPORT
[2018-08-13 18:19] VITALS: BP 133/67
--- NOTE | 2018-08-13 19:15 | NUR ---
RECEIVED CARE FROM DAY NURSE. LYING IN BED WITH EYES CLOSED. RESP EVEN AND UNLABORED. CALL LIGHT AT SIDE. IV SL TO LEFT FA. BRAY TO GRAVITY.
[2018-08-13 20:00] VITALS: BP 118/61
[2018-08-14 02:00] VITALS: BP 143/70
[2018-08-14 02:55] LABS: CREATININE - URINE 74.9 mg/dL (30-125); PROTEIN - URINE 971.6 mg/dL (0.0-11.9)
--- NOTE | 2018-08-14 03:00 | NUR ---
I have reviewed this patient and I concur with the Shift Assessment completed by the Licensed Practical Nurse today this shift.
[2018-08-14 04:00] VITALS: BP 145/71
[2018-08-14 05:48] LABS: BASOPHILS 0.1 % (0-2); EOSINOPHILS 1.2 % (0-7); HEMATOCRIT 27.6 % (36.0-48.0); HEMOGLOBIN 8.7 g/dL (12-16); IMMATURE GRANULOCYTES 0.2 % (0-5); LYMPHOCYTES 6.8 % (15-50); MCH 28.9 pg (26.0-34.0); MCHC 31.5 g/dL (31.0-37.0); MCV 91.7 fL (80.0-100.0); MEAN PLATELET VOLUME 10.4 fL (7.4-10.4); MONOCYTES 3.2 % (2-11); NEUTROPHILS 88.5 % (40-80); PLATELET COUNT 177 10x3/uL (130-400); RBC 3.01 10x6/uL (4.00-5.40); RDW 15.3 % (11.5-14.5)
[2018-08-14 05:50] LABS: WBC 17.1 10x3/uL (4.8-10.8)
[2018-08-14 06:10] LABS: ANION GAP 7.3 mmol/L (8-16); CALCIUM 7.2 mg/dL (8.5-10.1); CARBON DIOXIDE 31.9 mmol/L (21.0-32.0); CREATININE - SERUM 2.6 mg/dL (0.6-1.3); PHOSPHOROUS 3.4 mg/dL (2.5-4.9); POTASSIUM - SERUM 4.2 mmol/L (3.5-5.1)
[2018-08-14 09:15] VITALS: BP 137/70
--- NOTE | 2018-08-14 10:02 | NUR ---
ALERT AND ORIENTED WITH LETHARGY. CONTINUED ON CONTACT ISOLATION WITH TELEMETRY SR 79. DENIES ANY CHEST PAIN OR DISCOMFORT. S/L INTACT W/O S/S OF INFECTION/INFILTRATION. O2 4L N/C. ENCOURAGED TO USE CALL LIGHT FOR ASSIST AND VERBALIZED UNDERSTANDING.
[2018-08-14 14:30] VITALS: BP 137/73
[2018-08-14 16:00] VITALS: BP 126/65
[2018-08-14 20:00] VITALS: BP 120/62
[2018-08-15] VITALS: BP 127/62
[2018-08-15 04:00] VITALS: BP 133/67
[2018-08-15 05:54] LABS: BASOPHILS 0.2 % (0-2); EOSINOPHILS 1.6 % (0-7); HEMATOCRIT 28.6 % (36.0-48.0); HEMOGLOBIN 8.8 g/dL (12-16); IMMATURE GRANULOCYTES 0.4 % (0-5); LYMPHOCYTES 7.3 % (15-50); MCH 28.6 pg (26.0-34.0); MCHC 30.8 g/dL (31.0-37.0); MCV 92.9 fL (80.0-100.0); MEAN PLATELET VOLUME 11.3 fL (7.4-10.4); MONOCYTES 4.7 % (2-11); NEUTROPHILS 85.8 % (40-80); RBC 3.08 10x6/uL (4.00-5.40); RDW 15.8 % (11.5-14.5); WBC 15.3 10x3/uL (4.8-10.8)
[2018-08-15 06:12] LABS: PLATELET COUNT 214 10x3/uL (130-400)
[2018-08-15 06:31] LABS: ALBUMIN 1.8 g/dL (3.4-5.0); ANION GAP 8.6 mmol/L (8-16); BILIRUBIN - TOTAL 0.18 mg/dL (0.2-1.3); CALCIUM 7.2 mg/dL (8.5-10.1); CARBON DIOXIDE 30.5 mmol/L (21.0-32.0); CREATININE - SERUM 2.5 mg/dL (0.6-1.3); PHOSPHOROUS 3.3 mg/dL (2.5-4.9); POTASSIUM - SERUM 4.1 mmol/L (3.5-5.1); PROTEIN - SERUM 5.5 g/dL (6.4-8.2)
--- NOTE | 2018-08-15 10:52 | NUR ---
ALWAKE AND ORIENTED TO PERSON AND SURROUNDINGS AND ABLE TO ANSWER QUESTION APPROPRIATELY. TYLENOL GIVE FOR GENERALIZED PAIN AND EFFECTIVE. BRAY CATH PATENT. FAMILY PRESENT WITH RESIDENT BEING RAJAT IN BOTH EYES. S/L INTACT TO LT. FOREARM.ENCOURAGED TO USE CALL LIGHT FOR ASSIST.
[2018-08-15 13:10] VITALS: BP 115/64
[2018-08-15 16:31] VITALS: BP 119/60
[2018-08-15 20:00] VITALS: BP 133/64
--- NOTE | 2018-08-15 20:00 | NUR ---
RESTING IN BED DAUGHTER AT BEDSIDE, CALL LIGHT IN REACH , RESP UNLABOARED NO APPARENT DISTRESS
[2018-08-16 04:00] VITALS: BP 131/70
[2018-08-16 06:55] LABS: BASOPHILS 0.3 % (0-2); EOSINOPHILS 2.1 % (0-7); HEMATOCRIT 26.6 % (36.0-48.0); HEMOGLOBIN 8.2 g/dL (12-16); IMMATURE GRANULOCYTES 0.3 % (0-5); LYMPHOCYTES 9.7 % (15-50); MCH 28.8 pg (26.0-34.0); MCHC 30.8 g/dL (31.0-37.0); MCV 93.3 fL (80.0-100.0); MEAN PLATELET VOLUME 11.2 fL (7.4-10.4); MONOCYTES 4.1 % (2-11); NEUTROPHILS 83.5 % (40-80); PLATELET COUNT 232 10x3/uL (130-400); RBC 2.85 10x6/uL (4.00-5.40); RDW 15.8 % (11.5-14.5); WBC 12.3 10x3/uL (4.8-10.8)
[2018-08-16 07:27] LABS: APTT 34.1 SECONDS (22.8-39.4); INR 1.11 (0.85-1.17); PROTIME 13.8 SECONDS (11.6-15.0)
[2018-08-16 07:52] LABS: ALBUMIN 1.8 g/dL (3.4-5.0); ANION GAP 10.6 mmol/L (8-16); BILIRUBIN - TOTAL 0.14 mg/dL (0.2-1.3); CALCIUM 7.1 mg/dL (8.5-10.1); CARBON DIOXIDE 29.5 mmol/L (21.0-32.0); CREATININE - SERUM 2.3 mg/dL (0.6-1.3); PHOSPHOROUS 3.1 mg/dL (2.5-4.9); POTASSIUM - SERUM 4.1 mmol/L (3.5-5.1); PROTEIN - SERUM 5.3 g/dL (6.4-8.2)
[2018-08-16 09:31] VITALS: BP 141/69
[2018-08-16 13:00] VITALS: BP 139/84
[2018-08-16 18:57] VITALS: BP 130/64
[2018-08-16 20:00] VITALS: BP 131/69
[2018-08-17] VITALS (12 sets, daily range): BP systolic 126–146; BP diastolic 67–78
--- NOTE | 2018-08-17 04:23 | NUR ---
REC'D CHGE OF SHIFT.DTR AT BEDSIDE POSITIONED CHGED PER REQUEST.EXPLAINED TO DTR. NOTHING BY MOUTH PAST MIDNITE. FOR PROCEDURE IN AM DTR. STATES SHE UNDERSTANDS WILL CONTINUE TO MONITOR FOR ANY CHGES IN IN STATUS AND FOLLOW CURRENT PLAN OF CARE.
[2018-08-17 05:25] LABS: BASOPHILS 0.4 % (0-2); EOSINOPHILS 2.2 % (0-7); HEMOGLOBIN 8.3 g/dL (12-16); IMMATURE GRANULOCYTES 0.2 % (0-5); LYMPHOCYTES 8.8 % (15-50); MCH 28.9 pg (26.0-34.0); MCHC 30.7 g/dL (31.0-37.0); MCV 94.1 fL (80.0-100.0); MEAN PLATELET VOLUME 11.3 fL (7.4-10.4); MONOCYTES 6.3 % (2-11); NEUTROPHILS 82.1 % (40-80); PLATELET COUNT 252 10x3/uL (130-400); RBC 2.87 10x6/uL (4.00-5.40); RDW 15.5 % (11.5-14.5); WBC 9.6 10x3/uL (4.8-10.8)
[2018-08-17 05:48] LABS: ALBUMIN 1.7 g/dL (3.4-5.0); ANION GAP 7.1 mmol/L (8-16); BILIRUBIN - TOTAL 0.23 mg/dL (0.2-1.3); CALCIUM 7.1 mg/dL (8.5-10.1); CARBON DIOXIDE 31.1 mmol/L (21.0-32.0); CREATININE - SERUM 2.2 mg/dL (0.6-1.3); PHOSPHOROUS 3.2 mg/dL (2.5-4.9); POTASSIUM - SERUM 4.2 mmol/L (3.5-5.1); PROTEIN - SERUM 5.3 g/dL (6.4-8.2)
--- NOTE | 2018-08-17 07:58 | NUR ---
PT ALERT X 4. BREATH SOUNDS DIMINISHED TO LLL, 2L O2 PER NC. TELEMETRY IN PLACE. IV TO RIGHT HAND, SALINE LOCKED. BRAY IN PLACE, URINE YELLOW AND CLOUDY. FAMILY AT BEDSIDE. BED LOW, CALL LIGHT IN REACH. NO OTHER NEEDS AT THIS TIME.
--- NOTE | 2018-08-17 08:14 | NUR ---
I have reviewed this patient and I concur with the Shift Assessment completed by the Licensed Practical Nurse today this shift.
[2018-08-17 10:34] LABS: GLUCOSE - BODY FLUID 162 mg/dL
[2018-08-17 10:37] LABS: PROTEIN - BODY FLUID < 2.0 G/DL; TRIGLYCERIDE - BODY FLUID < 15 mg/dL
[2018-08-17 11:04] LABS: MACROPHAGES BF 27 %; MESOTHELIALS BF 11 %; NEUT - BF 3 %
--- NOTE | 2018-08-17 11:45 | NUR ---
NUTRITION F/U CHART REVIEWED. PT CURRENTLY NPO FOR PROCEDURE. WILL PROVIDE DIET WHEN RESUMED, MONITOR PO INTAKE. RD FOLLOWING
--- NOTE | 2018-08-17 12:26 | MORECARE ---
CASE MANAGEMENT DISCHARGE SUMMARY PATIENT: BERNA GARCIA UNIT: [id number] ADM DATE: 07/27/18 AGE: 48 : 74 SEX: F ROOM/BED: D.2230 AUTHOR: LAURITADOC PHYSICIAN: REFERRING PHYSICIAN: KIN CAICEDO MD DATE OF SERVICE: 08/17/18 Discharge Plan Patient Name: BERNA GARCIA Facility: [facility]:[place] : 1970 Planned Disposition: Home Anticipated Discharge Date: Discharge Date: Expected LOS: Initial Reviewer: [email or web address] Initial Review Date: 08/03/2018 Generated: 08/17/18 1:26 pm Comments DCP- Discharge Planning Updated by [email or web address]: Kelsie Devihilario on 08/17/18 11:[address] CM met with patient and daughter (Jeremy) in the room to discuss discharge planning. Jeremy states that in conversing with her mother that the plan is to still return to friends (Brenda) in [place]. Patient does not have any insurance so she will be unable to go to a skilled or rehab facility. I discussed possible alf placement for 30 days in a chcf and Jeremy states her mother does not want to do that. States she has many family members at home for support. CM will continue to follow and assist with discharge planning/needs. DCP- Discharge Planning Updated by [email or web address]: Kelsie Sade on 08/13/18 1:[address] CM went to room, no family present. Patient is sleeping. I called and spoke to Ramin in [employer] and I faxed family practice and nephrology progress notes with problem list. He states he will see if she qualifies for emergency Medicaid. CM will continue to follow and assist with discharge planning/needs. DCP- Discharge Planning Updated by [id number]: Chloe Hampton on 08/06/18 3:[address] Patient Name: BERNA GARCIA Admission Status: Elective Accout number: [id number] Admission Date: 07-27-2018 : 1970 Admission Diagnosis:ACUTE POSTHEMORRHAGIC ANEMIA Attending: KIN CAICEDO Current LOS: 10 Anticipated DC Date: Planned Disposition: Home Primary Insurance: UNINSURED DISCOUNT PLAN Discharge Planning Comments: CM spoke with family that was visiting. Daughter Henrry and son Yarelis here today to visit along with other family member. The children are currently staying with an uncle Steven [phone]. They are planning on living with a friend Brenda Celeste when patient is discharged. [address] , [place] [address]. HENRRY stated that they will have family that will help care for patient once she is stable for discharge. CM will continue to follow and assist as needed with discharge planning needs. Water Treatment Plant Mechanic: Chloe Hampton DCP- Discharge Planning Updated by [email or web address]: Chloe Hampton on 08/05/18 2:[address] Nursing staff stated that patient's audit control clerk was here this am. He stated that the patients children are in the care of the uncle (Steven [phone])?? Nursing didn't get name or phone number of audit control clerk or uncle. Patient is still on BiPap currently. CM will continue to follow and assist as needed with discharge planning/ needs. DCP- Discharge Planning Updated by [email or web address]: Chloe Hampton on 08/04/18 2:[address] CM spoke with patient nurse. She stated that patient was off BiPap for meds earlier and stated it was hard to breathe. Patient is currently back on BiPap. KIRSTEN was told that patient the contact number Brenda Celeste was patients ex-husbands best friend [phone]. Patient has two minor children Henrry [phone]. (daughter) and a son Shanthi Nicole. CM also has a number for an uncle Steven [phone]. CM can't obtain verbal permission to speak to these contacts due to patients respiratory status. CM was notified to find out about status of minor children. CM also needs to find out about family support with patients needs upon discharge. Since patient is uninsured will be very difficult to find any placement. KIRSTEN was able to obtain from a nursing note that [facility] Counselor Patricio Jones [phone]. Machine Hoop Maker. CM did attempted to call Patricio to see if he could possibly release any information regarding home situation. CM left message for Patricio to call back. CM will check with patient in am to see if she can give permission to speak to contacts. CM will continue to follow and assist as needed with discharge planning needs. DCP- Discharge Planning Updated by [email or web address]: Chloe Hampton on 08/03/18 4:[address] CM attempted to visit with patient regarding discharge planning/ needs. Patient currently on BiPAP no family available. CM will continue to follow and assist as needed with discharge planning / needs DCPIA - Discharge Planning Initial Assessment Updated by [email or web address]: Kelsie Stuart on 08/17/18 12:21 pm * Preadmission Environment Acute Care Facility * Facility Name [facility], [place], [place]. * List name and contact numbers for known caregivers / representatives who currently or will assist patient after discharge: ROYCE, SISTER IN LAW, YARELIS GARCIA, MINOR SON, FADY, FAMILY FRIEND, Yusef (Czech speaking 17 year old DTR - [phone]) Last DP export: 08/13/18 1:34 p Patient Name: BERNA GARCIA Page [id number] at 1226 All edits/amendments must be made on the electronic document DICTATION DATE: 08/17/181225 FLEXOGRAPHIC PRINTING PRESS OPERATOR: STEFAN 08/17/181225 RPT#: [id number] DC DATE: STATUS: ADM IN [facility] [address] [place] [address] END OF REPORT
[2018-08-17 14:41] LABS: APPEARANCE HAZY (CLEAR); COLOR YELLOW (YELLOW); GLUCOSE 250 mg/dL (NEGATIVE); NITRITE NEGATIVE (NEGATIVE); PROTEIN 2+ mg/dL (NEGATIVE)
[2018-08-17 14:42] LABS: BILIRUBIN NEGATIVE (NEGATIVE); KETONE NEGATIVE (NEGATIVE); UROBILINOGEN NORMAL (NORMAL)
[2018-08-17 14:43] LABS: BACTERIA MANY /hpf (NONE SEEN); RED CELLS - URINE 0-5 /hpf (0-5); WHITE CELLS - URINE >50 /hpf (0-5)
[2018-08-18] VITALS: BP 122/63
[2018-08-18 04:00] VITALS: BP 133/65
--- NOTE | 2018-08-18 04:12 | NUR ---
I have reviewed this patient and I concur with the Shift Assessment completed by the Licensed Practical Nurse today this shift.
[2018-08-18 06:10] LABS: BASOPHILS 0.5 % (0-2); EOSINOPHILS 2.7 % (0-7); HEMATOCRIT 26.1 % (36.0-48.0); HEMOGLOBIN 8.1 g/dL (12-16); IMMATURE GRANULOCYTES 0.1 % (0-5); LYMPHOCYTES 17.8 % (15-50); MCH 28.9 pg (26.0-34.0); MCV 93.2 fL (80.0-100.0); MEAN PLATELET VOLUME 11.2 fL (7.4-10.4); MONOCYTES 9.8 % (2-11); NEUTROPHILS 69.1 % (40-80); PLATELET COUNT 250 10x3/uL (130-400); RDW 15.6 % (11.5-14.5); WBC 7.7 10x3/uL (4.8-10.8)
[2018-08-18 06:33] LABS: ALBUMIN 1.8 g/dL (3.4-5.0); ANION GAP 10.2 mmol/L (8-16); BILIRUBIN - TOTAL 0.17 mg/dL (0.2-1.3); CALCIUM 7.1 mg/dL (8.5-10.1); CREATININE - SERUM 2.3 mg/dL (0.6-1.3); POTASSIUM - SERUM 4.2 mmol/L (3.5-5.1); PROTEIN - SERUM 5.4 g/dL (6.4-8.2)
[2018-08-18 08:50] VITALS: BP 137/71
--- NOTE | 2018-08-18 12:31 | NUR ---
NUTRITION F/U PT WITH FAMILY AT BEDSIDE. ASSISTING WITH LUNCH. STATES SHE IS EATING "SO SO." REFUSING TO DRINK NEPRO. WILL D/C FROM DIET ORDER. CONTINUE TO ENCOURAGR PO INTAKE. RD FOLLOWING
[2018-08-18 13:53] VITALS: BP 142/72
--- NOTE | 2018-08-18 14:08 | NUR ---
I have reviewed this patient and I concur with the Shift Assessment completed by the Licensed Practical Nurse today this shift.
[2018-08-18 14:19] LABS: FUNGUS STAIN Final report (())
--- NOTE | 2018-08-18 14:40 | TEE ---
PATIENT:BERNA GARCIA MEDICAL RECORD: [id number] LOCATION:[facility] AGE OF PATIENT: 48 ADMISSION DATE: 07/27/18 SEX: F REFERRING PHYSICIAN: INTERPRETING PHYSICIAN: KALEE VASQUES MD TRANSESOPHAGEAL ECHOCARDIOGRAM Date: 08/13/18 RAYMOND CHARGE Y INDICATIONS: ASSESS MITRAL REGURG PREMEDICATIONS: PATIENT'S RESPONSE PROCEDURE DOPPLER MEASUREMENTS: LVIT LA PA 150 RA LVOT 165 RVOT 117 Asc. Ao 197 AV Gradient Peak 15.56 AV Mean 7.66 AV Area 1.9 MV Gradient Peak 16.23 MV Mean 7.46 MV Area INTERPRETATION: Doppler: 2-D: COLOR FLOW DOPPLER NORMAL SALINE STUDY: MISCELLANOUS: DIAGNOSIS: PLAN: Ice Cream Freezer Assistant:3 Dr. Lovett Kiln Feeder: Shoaib NOEL COMMENTS: DATE OF SERVICE: PROCEDURE: Transesophageal report. DESCRIPTION OF PROCEDURE: After general sedation via TIVA anesthesia, transesophageal Omniplane probe was placed in the distal esophagus and proximal stomach without difficulty. FINDINGS: LV internal dimension is normal. Wall motion is normal function. EF TRANSESOPHAGEAL ECHOCARDIOGRAM REPORT [id number] BERNA GARCIA is greater than or equal to 55%. Aortic valve is well visualized, this is a tricuspid valve with good valve excursion and no aortic insufficiency. Left atrium again is well visualized. This appears normal. Left atrial appendage is well visualized. This appears normal with good contractility. Mitral valve is well visualized with normal coaptation. No evidence of structural abnormality and no more than mild MR. Right-sided chambers again are very well visualized. These chambers appear normal with normal RV systolic function. The tricuspid valve is well visualized. This shows good excursion, no more than mild MR. Color flow imaging across the ventricular and atrial septum as well as Doppler interrogation showed no evidence of ASD or VSD. At the end of procedure, the transesophageal Omniplane probe was turned posteriorly and this showed no atherosclerotic debris in the descending aorta. IMPRESSION: Essentially normal transesophageal echocardiographic study. No evidence of cardiac contribution to a significant recalcitrant edema. TRANSINT:[id number] Voice Confirmation ID: [id number] DOCUMENT ID: [id number] at 1440 CC: [id number] DICTATION DATE: 08/13/18 1251 C.O.D. BILLER: 08/13/18 1344 ADM IN [facility] [address] [place] [address]
--- NOTE | 2018-08-18 16:39 | NUR ---
24HR URINE COLLECTED. BRAY D/C WILL MONITOR FOR URINE OUTPUT
[2018-08-18 16:42] VITALS: BP 135/78
[2018-08-18 16:59] LABS: NA - URINE 49 MMOL/L (20-110)
[2018-08-18 17:06] LABS: NA - 24HR 26 mmol/24h (40-220)
[2018-08-18 20:00] VITALS: BP 129/69
[2018-08-18 20:07] LABS: ACID FAST SMEAR Negative (()); AFB SPECIMEN PROCESSING Not Indicated (())
[2018-08-19 00:16] LABS: CREATININE - URINE 83.2 mg/dL (30-125)
[2018-08-19 04:00] VITALS: BP 131/70
[2018-08-19 04:58] LABS: BASOPHILS 0.5 % (0-2); EOSINOPHILS 4.3 % (0-7); HEMOGLOBIN 8.1 g/dL (12-16); IMMATURE GRANULOCYTES 0.2 % (0-5); LYMPHOCYTES 23.4 % (15-50); MCH 28.4 pg (26.0-34.0); MCHC 31.2 g/dL (31.0-37.0); MONOCYTES 11.6 % (2-11); PLATELET COUNT 243 10x3/uL (130-400); RBC 2.85 10x6/uL (4.00-5.40); RDW 15.3 % (11.5-14.5); WBC 6.1 10x3/uL (4.8-10.8)
[2018-08-19 04:59] LABS: MCV 91.2 fL (80.0-100.0)
[2018-08-19 05:12] LABS: ALBUMIN 1.6 g/dL (3.4-5.0); ANION GAP 5.7 mmol/L (8-16); BILIRUBIN - TOTAL 0.21 mg/dL (0.2-1.3); CALCIUM 7.2 mg/dL (8.5-10.1); CARBON DIOXIDE 31.4 mmol/L (21.0-32.0); CREATININE - SERUM 2.2 mg/dL (0.6-1.3); POTASSIUM - SERUM 4.1 mmol/L (3.5-5.1); PROTEIN - SERUM 5.3 g/dL (6.4-8.2)
--- NOTE | 2018-08-19 08:18 | NUR ---
PT RESTING IN BED WITH FAMILY AT BEDSIDE. NO ACUTE DISTRESS. IV TO RIGHT HAND WITH 1/2 NS @ 50 ML/HR INFUSING VIA PUMP. SITE WITHOUT REDNESS OR EDEMA. DENIES PAIN AT THIS TIME. DENIES FURTHER NEEDS AT THIS TIME. CL WITHIN REACH. ENCOURAGED TO CALL WITH NEEDS. CONTINUE POC
[2018-08-19 10:11] VITALS: BP 138/71
[2018-08-19 13:37] VITALS: BP 134/68
[2018-08-19 17:34] VITALS: BP 120/64
[2018-08-19 20:00] VITALS: BP 130/72
--- NOTE | 2018-08-19 20:00 | NUR ---
ALERT SITTING UP IN CHAIR C/O PAIN TO BACK REQUESTIGN TO GO TO BED, WILL GET ASSISTANCE TO TRANSFER SEE SHIFT ASSESSMENT
[2018-08-20] VITALS (7 sets, daily range): BP systolic 124–145; BP diastolic 65–74
[2018-08-20 04:24] LABS: BASOPHILS 0.4 % (0-2); EOSINOPHILS 4.6 % (0-7); HEMATOCRIT 24.5 % (36.0-48.0); HEMOGLOBIN 7.8 g/dL (12-16); IMMATURE GRANULOCYTES 0.2 % (0-5); LYMPHOCYTES 24.1 % (15-50); MCH 28.8 pg (26.0-34.0); MCHC 31.8 g/dL (31.0-37.0); MCV 90.4 fL (80.0-100.0); MEAN PLATELET VOLUME 10.3 fL (7.4-10.4); MONOCYTES 10.9 % (2-11); NEUTROPHILS 59.8 % (40-80); PLATELET COUNT 219 10x3/uL (130-400); RBC 2.71 10x6/uL (4.00-5.40); RDW 15.6 % (11.5-14.5)
[2018-08-20 04:44] LABS: ALBUMIN 1.6 g/dL (3.4-5.0); ANION GAP 9.2 mmol/L (8-16); BILIRUBIN - TOTAL 0.11 mg/dL (0.2-1.3); CARBON DIOXIDE 28.1 mmol/L (21.0-32.0); CREATININE - SERUM 2.2 mg/dL (0.6-1.3); POTASSIUM - SERUM 4.3 mmol/L (3.5-5.1); PROTEIN - SERUM 5.2 g/dL (6.4-8.2)
[2018-08-20 04:45] LABS: CALCIUM 6.9 mg/dL (8.5-10.1)
--- NOTE | 2018-08-20 08:00 | NUR ---
ALERT AND ORIENTED AND ASSISTED TO BEDPAN. DRESSING INTACT TO COCCYX. RESP EVEN AND UNLABORED WITHS/L TO RT. HAND. CONTINUED CONTACT ISOLATION. ENCOURAGING IMPROVING WITH ADL'S WITH FAMILY PRESENT. DENIES ANY PAIN OR DISCOMFORT AT THIS TIME. ENCOURAGED TO USE CALL LIGHT FOR ASSIST.
--- NOTE | 2018-08-20 09:52 | NUR ---
Rehab Note- Acute Inpatient Rehab prescreen order received. The patient has no noted insurance & doesn't have acute inpatient rehab benefits. Thank you for this referral! Gail Hilliard RN Clinical Liaison, [facility] Rehab
--- NOTE | 2018-08-20 19:00 | NUR ---
REPORT RECEIVED AND CARE OF PT ASSUMED. PT LYING IN SUPINE POSITION VISITING WITH CHILDREN. IV IN RIGHT HAND SALINE LOCKED. CONTACT ISOLATION IN PLACE.
--- NOTE | 2018-08-20 19:15 | NUR ---
VERBAL FROM DAY SHIFT RN THAT PT BEING TRANSFUSED WITH PRBC'S ON THURSDAY AM.
--- NOTE | 2018-08-20 22:13 | NUR ---
HS MEDICATIONS GIVEN. FSBS 144 THIS CHECK REQUIRING NO COVERAGE PER SLIDING SCALE. WILL CONTINUE TO MONITOR FOR NEEDS. EYE DROPS IN CASSETTE.
--- NOTE | 2018-08-21 01:17 | NUR ---
COLLECTED URINE FOR ORDERED STUDIES AND DELIVERED TO LAB.
[2018-08-21 01:33] LABS: APPEARANCE CLOUDY (CLEAR); COLOR YELLOW (YELLOW); NITRITE NEGATIVE (NEGATIVE); PROTEIN 2+ mg/dL (NEGATIVE); SPECIFIC GRAVITY 1.005 (1.005-1.020)
[2018-08-21 01:34] LABS: BACTERIA MANY /hpf (NONE SEEN); BILIRUBIN NEGATIVE (NEGATIVE); EPITHELIAL CELLS RARE /hpf (0-5); GLUCOSE 500 mg/dL (NEGATIVE); KETONE NEGATIVE (NEGATIVE); RED CELLS - URINE 0-5 /hpf (0-5); UROBILINOGEN NORMAL (NORMAL); WHITE CELLS - URINE 25-50 /hpf (0-5)
[2018-08-21 04:00] VITALS: BP 132/70
[2018-08-21 05:13] LABS: BASOPHILS 0.6 % (0-2); EOSINOPHILS 3.2 % (0-7); HEMATOCRIT 24.3 % (36.0-48.0); HEMOGLOBIN 7.7 g/dL (12-16); IMMATURE GRANULOCYTES 0.4 % (0-5); LYMPHOCYTES 27.2 % (15-50); MCH 28.6 pg (26.0-34.0); MCHC 31.7 g/dL (31.0-37.0); MCV 90.3 fL (80.0-100.0); MEAN PLATELET VOLUME 10.7 fL (7.4-10.4); NEUTROPHILS 59.6 % (40-80); PLATELET COUNT 227 10x3/uL (130-400); RBC 2.69 10x6/uL (4.00-5.40); RDW 15.5 % (11.5-14.5); WBC 5.4 10x3/uL (4.8-10.8)
[2018-08-21 05:29] LABS: ALBUMIN 1.6 g/dL (3.4-5.0); ANION GAP 10.9 mmol/L (8-16); BILIRUBIN - TOTAL 0.11 mg/dL (0.2-1.3); CARBON DIOXIDE 26.5 mmol/L (21.0-32.0); CREATININE - SERUM 2.4 mg/dL (0.6-1.3); POTASSIUM - SERUM 4.4 mmol/L (3.5-5.1); PROTEIN - SERUM 5.2 g/dL (6.4-8.2)
[2018-08-21 05:32] LABS: CALCIUM 6.9 mg/dL (8.5-10.1)
--- NOTE | 2018-08-21 05:33 | NUR ---
CALCIUM LEVEL 6.9 THIS AM. ALBUMIN 1.6....CORRECTED CALCIUM IS 9.972.
--- NOTE | 2018-08-21 05:38 | NUR ---
CALCIUM LEVEL 6.9 THIS AM...ALBUMIN 1.6 MAKING CORRECTED CALCIUM LEVEL 8.8 WHICH IS NOT CRITICAL LEVEL.
[2018-08-21 09:04] VITALS: BP 140/71
--- NOTE | 2018-08-21 10:31 | NUR ---
ALERT AND ORIENTED AND ABLE TO VOICE NEEDS AND CONCERNS WITH ASSIST OF CHILDREN TRANSLATON. TYLENOL GIVEN PRIOR TO BLOOD TRANSFUSION PER ORDER WITH NO S/S OF REACTION NOTED FROM 1ST UNIT [facility]. TOLERATING WELL CONTINUES ON CONTACT ISOLATION. WNCOURAGED TO USE CALL LIGHT FOR ASSIST.
--- NOTE | 2018-08-21 12:20 | NUR ---
FINISHED FIRST UNIT PRBCS' WITH NO S/S OF REACTION NOTED. IV SITE INTACT TO RT. HAND. AND STARTED 2ND UNIT PRBC'S WITH NO REACTION NOTED AT THIS TIME.
--- NOTE | 2018-08-21 12:35 | NUR ---
NO S/S OF REACTION NOTED WITH [facility] INFUSING AT PRESCRIBED RATE.
[2018-08-21 14:14] VITALS: BP 131/70
--- NOTE | 2018-08-21 14:50 | NUR ---
FINISHED 2ND UNIT OF PRBC'S AND FLUSHED WITH 100CCNORMAL SALINE. NO S/S OF REACTION NOTED.
[2018-08-21 17:53] VITALS: BP 128/36
[2018-08-21 20:00] VITALS: BP 130/63
--- NOTE | 2018-08-21 22:35 | MORECARE ---
CASE MANAGEMENT DISCHARGE SUMMARY PATIENT: BERNA GARCIA UNIT: [id number] ADM DATE: 07/27/18 AGE: 48 : 74 SEX: F ROOM/BED: D.2230 AUTHOR: LAURITA,DOC PHYSICIAN: REFERRING PHYSICIAN: KIN CAICEDO MD DATE OF SERVICE: 08/21/18 Discharge Plan Patient Name: BERNA GARCIA Facility: [facility]:[place] : 1970 Planned Disposition: Home Anticipated Discharge Date: Discharge Date: Expected LOS: Initial Reviewer: [email or web address] Initial Review Date: 08/03/2018 Generated: 08/21/18 11:35 pm Comments DCP- Discharge Planning Updated by [email or web address]: Lianne Tran on 08/21/18 9:[address] LATE ENTRY 0945 SANDRA BELCHER ASK CM STATUS OF INSURANCE APPLICATION. TC TO [employer]. SPOKE WITH MAZIN. PER DOCUMENTATION AN APPLICATION FOR "SPECIAL MEDICAID" IS IN PROGRESS . MEDICAL DIAGNOSIS INFORMATION RECEIVED AND HAS BEEN ADDRESSED. [employer] HAD BEEN TRYING TO REACH PATIENT'S CURB HOP. CM ADVISED THE SON THAT [facility] COUNSELOR NEEDED TO SPEAK WITH THE CURB HOP. PROVIDED CONTACT PHONE NUMBER. SPOKE WITH THE DAUGHTER AND THE CURB HOP THIS PM. LEFT VM MESSAGE FOR MAZIN. DCP- Discharge Planning Updated by [email or web address]: Kelsie Stuart on 08/17/18 11:[address] CM met with patient and daughter (Jeremy) in the room to discuss discharge planning. Jeremy states that in conversing with her mother that the plan is to still return to friends (Brenda) in [place]. Patient does not have any insurance so she will be unable to go to a skilled or rehab facility. I discussed possible residential placement for 30 days in a fdc and Jeremy states her mother does not want to do that. States she has many family members at home for support. CM will continue to follow and assist with discharge planning/needs. DCP- Discharge Planning Updated by [id number]: Kelsie Stuart on 08/13/18 1:[address] CM went to room, no family present. Patient is sleeping. I called and spoke to Ramin in [place] and I faxed family practice and nephrology progress notes with problem list. He states he will see if she qualifies for emergency Medicaid. CM will continue to follow and assist with discharge planning/needs. DCP- Discharge Planning Updated by [email or web address]: Chloe Hampton on 08/06/18 3:[address] Patient Name: BERNA GARCIA Admission Status: Elective Accout number: [id number] Admission Date: 07-27-2018 : 1970 Admission Diagnosis:ACUTE POSTHEMORRHAGIC ANEMIA Attending: KIN CAICEDO Current LOS: 10 Anticipated DC Date: Planned Disposition: Home Primary Insurance: UNINSURED DISCOUNT PLAN Discharge Planning Comments: CM spoke with family that was visiting. Daughter Henrry and son Yarelis here today to visit along with other family member. The children are currently staying with an uncle Steven [phone]. They are planning on living with a friend Brenda Celeste when patient is discharged. [address] , [place] [address]. HENRRY stated that they will have family that will help care for patient once she is stable for discharge. CM will continue to follow and assist as needed with discharge planning needs. Core Dipper: Chloe Hampton DCP- Discharge Planning Updated by [id number]: Chloe Hampton on 08/05/18 2:[address] Nursing staff stated that patient's cut off saw set up operator was here this am. He stated that the patients children are in the care of the uncle (Steven [phone])?? Nursing didn't get name or phone number of cut off saw set up operator or uncle. Patient is still on BiPap currently. CM will continue to follow and assist as needed with discharge planning/ needs. DCP- Discharge Planning Updated by [email or web address]: Chloe Hampton on 08/04/18 2:[address] CM spoke with patient nurse. She stated that patient was off BiPap for meds earlier and stated it was hard to breathe. Patient is currently back on BiPap. CM was told that patient the contact number Brenda Celeste was patients ex-husbands best friend [phone]. Patient has two minor children Henrry [phone]. (daughter) and a son Shanthi Nicole. CM also has a number for an uncle Steven [phone]. CM can't obtain verbal permission to speak to these contacts due to patients respiratory status. CM was notified to find out about status of minor children. CM also needs to find out about family support with patients needs upon discharge. Since patient is uninsured will be very difficult to find any placement. CM was able to obtain from a nursing note that [facility] Counselor Patricio Jones [phone]. Lockstitch Waistline Joiner. CM did attempted to call Patricio to see if he could possibly release any information regarding home situation. CM left message for Patricio to call back. CM will check with patient in am to see if she can give permission to speak to contacts. CM will continue to follow and assist as needed with discharge planning needs. DCP- Discharge Planning Updated by [id number]: Chloe Hampton on 08/03/18 4:[address] CM attempted to visit with patient regarding discharge planning/ needs. Patient currently on BiPAP no family available. CM will continue to follow and assist as needed with discharge planning / needs DCPIA - Discharge Planning Initial Assessment Updated by [email or web address]: Kelsie Stuart on 08/17/18 12:21 pm * Preadmission Environment Acute Care Facility * Facility Name [facility], [place], [place]. * List name and contact numbers for known caregivers / representatives who currently or will assist patient after discharge: ROYCE, SISTER IN LAW, YARELIS GARCIA, MINOR SON, FADY, FAMILY FRIEND, Yusef (Belarusian speaking 17 year old DTR - [phone]) Last DP export: 08/17/18 11:26 a Patient Name: BERNA GARCIA Page [id number] at 223 All edits/amendments must be made on the electronic document DICTATION DATE: 08/21/182233 SIGN SHOP SUPERVISOR: STEFAN 08/21/182233 RPT#: [id number] DC DATE: STATUS: ADM IN [facility] [address] [place] [address] END OF REPORT
--- NOTE | 2018-08-21 23:14 | NUR ---
GAVE PT SCHEDULED MEDS AND EYE DROPS. PT VOIDED ON BEDPAN. ASSESSMENT COMPLETE PER FLOW-SHEET. PT'S CHILDREN TRANSLATE. CONTACT ISOLATION PRECAUTIONS. NO OTHER NEEDS. WILL CONTINUE TO MONITOR.
[2018-08-22] VITALS: BP 127/63
[2018-08-22 04:00] VITALS: BP 140/68
[2018-08-22 05:11] LABS: BASOPHILS 0.5 % (0-2); EOSINOPHILS 2.1 % (0-7); IMMATURE GRANULOCYTES 0.8 % (0-5); LYMPHOCYTES 21.6 % (15-50); MCHC 32.7 g/dL (31.0-37.0); MCV 88.7 fL (80.0-100.0); MEAN PLATELET VOLUME 10.6 fL (7.4-10.4); MONOCYTES 8.2 % (2-11); NEUTROPHILS 66.8 % (40-80); PLATELET COUNT 209 10x3/uL (130-400); RDW 15.4 % (11.5-14.5); WBC 6.3 10x3/uL (4.8-10.8)
[2018-08-22 05:15] LABS: HEMATOCRIT 31.5 % (36.0-48.0); HEMOGLOBIN 10.3 g/dL (12-16); RBC 3.55 10x6/uL (4.00-5.40)
[2018-08-22 05:41] LABS: ALBUMIN 1.6 g/dL (3.4-5.0); ANION GAP 9.3 mmol/L (8-16); BILIRUBIN - TOTAL 0.19 mg/dL (0.2-1.3); CALCIUM 7.2 mg/dL (8.5-10.1); CARBON DIOXIDE 27.3 mmol/L (21.0-32.0); CREATININE - SERUM 2.4 mg/dL (0.6-1.3); POTASSIUM - SERUM 4.6 mmol/L (3.5-5.1); PROTEIN - SERUM 5.4 g/dL (6.4-8.2)
[2018-08-22 09:45] VITALS: BP 151/75
--- NOTE | 2018-08-22 10:29 | NUR ---
ALERT AND ORIENTED WITH GENERALIZED WEAKNESS. ABD. SOFT WITH BS NOTED ENCOURAGED TO TURN AND REPOSITION. CONTINUED CONTACT ISOLATION. ABD SOFT WITH BS NOTED. S/L INTACT TO RT. HAND. ENCOURAGED TO USE CALL LIGHT FOR ASSIST WITH FAMILY PRESENT.
[2018-08-22 13:46] VITALS: BP 135/67
[2018-08-22] MEDS ORDERED: FLORAJEN3 CAPS460 MG PO (14:38)
[2018-08-22] MEDS ORDERED: TIMOPTIC 0.5 % O5 ML OP (14:38)
[2018-08-22] MEDS ORDERED: PROTONIX40 MG PO (14:39)
[2018-08-22] MEDS ORDERED: CARAFATE1 G PO (14:39)
[2018-08-22] MEDS ORDERED: MEGACE400 MG/10 PO (14:39)
[2018-08-22 17:35] VITALS: BP 135/67
--- NOTE | 2018-08-22 18:37 | NUR ---
DRESSING CHANGED TO COCCYX WITH SKIN INTACT WITHOUT ANY ERRYTHEMA. REPOSITIONED FOR COMFORT. CASE MANAGEMENT ATTEMPTING TO GATHER RESOURCES TO MEET PATIENTS NEEDS UPON DISCHARGE. FAMILY PRESENTAND UPDATED ON DISCHARGE PLANNING AT THIS TIME. DENIES ANY PAIN OR DISCOMFORT AT THIS TIME.
[2018-08-22 20:00] VITALS: BP 135/72
--- NOTE | 2018-08-22 21:13 | MORECARE ---
CASE MANAGEMENT DISCHARGE SUMMARY PATIENT: BERNA GARCIA UNIT: [id number] ADM DATE: 07/27/18 AGE: 48 : 74 SEX: F ROOM/BED: D.2230 AUTHOR: LAURITA,DOC PHYSICIAN: REFERRING PHYSICIAN: KIN CAICEDO MD DATE OF SERVICE: 08/22/18 Discharge Plan Patient Name: BERNA GARCIA Facility: [facility]:[place] : 1970 Planned Disposition: Home Anticipated Discharge Date: Discharge Date: Expected LOS: Initial Reviewer: [email or web address] Initial Review Date: 08/03/2018 Generated: 08/22/18 10:13 pm Comments DCP- Discharge Planning Updated by [id number]: Lianne Tran on 08/22/18 8:[address] CM ALSO NOTED MICROBIOLOGY URINE CULTURE REPORT NOTING >100,000 ORG/ML FOR 2 GRAM POSTIVE GRAM NEG RODS. DISCUSSED W/ PRIMARY NURSE, MARILU , WHO CALLED PRIMARY MDTO ADDRESS ANTIBIOTIC ORDER. DCP- Discharge Planning Updated by [email or web address]: Lianne Tran on 08/22/18 8:[address] LATE ENTRY 1500 DISCHARGE ORDERS RECEIVED LATE PM. DISCUSSED WITH PRIMARY NURSE AND GRINDER DRESSER. HAD TO ASCERTAIN COST OF MEDICATIONS AND PATIENT'S ABILITY TO OBTAIN. HAD TO CONTACT ALL CONSULTANTS REGARDING ORDERS AND FOLLOWUP. THE PATIENT LIVES ALONE IN A SMALL APARTMENT. THE PATIENT'S CHILDREN 15 AND 17 YRS OLD LIVE W/ THE PARENTAL UNCLE. SHE HAS NO PAYOR SOURCE FOR HOME HEALTH SERVICES. CANNOT ASCERTAIN IF ANY CHARITABLE HOME HEALTH SERVICES ARE AVAILABLE ON THE WEEKEND. PATIENT'S MEDICATIONS WERE CALLED TO THE PHARMACY UTILIZING THE DISCOUNT LIST AND WILL COST $155.00. THESE FUNDS ARE NOT AVAILABLE. WILL NEED TO ARRANGE FOR MEDICATION ASSIST W/ [facility] THE CASE MANAGEMENT CONTRACTED PHARMACY ON THURSDAY. SAFE DISCHARGE IS NOT FEASIBLE TODAY, THURSDAY. QUESTION PENDING ABOUT F/U FOR MEDICAL CARE. DISCHARGE PLANNING EFFORTS TO CONTINUE TOMORROW. DCP- Discharge Planning Updated by [id number]: Lianne Tran on 08/21/18 9:[address] LATE ENTRY 0993 SANDRA BELCHER ASK CM STATUS OF INSURANCE APPLICATION. TC TO [employer]. SPOKE WITH MAZIN. PER DOCUMENTATION AN APPLICATION FOR "SPECIAL MEDICAID" IS IN PROGRESS . MEDICAL DIAGNOSIS INFORMATION RECEIVED AND HAS BEEN ADDRESSED. [employer] HAD BEEN TRYING TO REACH PATIENT'S STAMPING DIE MAKER. CM ADVISED THE SON THAT [facility] COUNSELOR NEEDED TO SPEAK WITH THE STAMPING DIE MAKER. PROVIDED CONTACT PHONE NUMBER. SPOKE WITH THE DAUGHTER AND THE STAMPING DIE MAKER THIS PM. LEFT VM MESSAGE FOR MAZIN. DCP- Discharge Planning Updated by [email or web address]: Kelsie Stuart on 08/17/18 11:[address] CM met with patient and daughter (Jeremy) in the room to discuss discharge planning. Jeremy states that in conversing with her mother that the plan is to still return to friends (Brenda) in [place]. Patient does not have any insurance so she will be unable to go to a skilled or rehab facility. I discussed possible moth exterminator placement [place] a [place] and Jeremy states her mother does not want to do that. States she has many family members at home for support. CM will continue to follow and assist with discharge planning/needs. DCP- Discharge Planning Updated by [id number]: Kelsie Stuart on 08/13/18 1:[address] CM went to room, no family present. Patient is sleeping. I called and spoke to Ramin in [employer] and I faxed family practice and nephrology progress notes with problem list. He states he will see if she qualifies for emergency Medicaid. CM will continue to follow and assist with discharge planning/needs. DCP- Discharge Planning Updated by [email or web address]: Chloe Hampton on 08/06/18 3:[address] Patient Name: BERNA GARCIA Admission Status: Elective Accout number: [id number] Admission Date: 07-27-2018 : 1970 Admission Diagnosis:ACUTE POSTHEMORRHAGIC ANEMIA Attending: KIN CAICEDO Current LOS: 10 Anticipated DC Date: Planned Disposition: Home Primary Insurance: UNINSURED DISCOUNT PLAN Discharge Planning Comments: CM spoke with family that was visiting. Daughter Henrry and son Yarelis here today to visit along with other family member. The children are currently staying with an uncle Steven [phone]. They are planning on living with a friend Brenda Celeste when patient is discharged. [address] , [place] [address]. HENRRY stated that they will have family that will help care for patient once she is stable for discharge. CM will continue to follow and assist as needed with discharge planning needs. Liquid Center Assembler: Chloe Hampton DCP- Discharge Planning Updated by [email or web address]: Chloedania Chengr on 08/05/18 2:[address] Nursing staff stated that patient's de alcoholizer was here this am. He stated that the patients children are in the care of the uncle (Steven [phone])?? Nursing didn't get name or phone number of de alcoholizer or uncle. Patient is still on BiPap currently. CM will continue to follow and assist as needed with discharge planning/ needs. DCP- Discharge Planning Updated by [id number]: Chloe Hampton on 08/04/18 2:[address] CM spoke with patient nurse. She stated that patient was off BiPap for meds earlier and stated it was hard to breathe. Patient is currently back on BiPap. CM was told that patient the contact number Brenda Celeste was patients ex-husbands best friend [phone]. Patient has two minor children Henrry [phone]. (daughter) and a son Shanthi Nicole. CM also has a number for an uncle Steven [phone]. CM can't obtain verbal permission to speak to these contacts due to patients respiratory status. CM was notified to find out about status of minor children. CM also needs to find out about family support with patients needs upon discharge. Since patient is uninsured will be very difficult to find any placement. CM was able to obtain from a nursing note that [facility] Counselor Patricio Jones [phone]. Prize Fighter. CM did attempted to call Patricio to see if he could possibly release any information regarding home situation. CM left message for Patricio to call back. CM will check with patient in am to see if she can give permission to speak to contacts. CM will continue to follow and assist as needed with discharge planning needs. DCP- Discharge Planning Updated by [id number]: Chloe Hampton on 08/03/18 4:[address] CM attempted to visit with patient regarding discharge planning/ needs. Patient currently on BiPAP no family available. CM will continue to follow and assist as needed with discharge planning / needs DCPIA - Discharge Planning Initial Assessment Updated by [id number]: Kelsie Stuart on 08/17/18 12:21 pm * Preadmission Environment Acute Care Facility * Facility Name [facility], [place], [place]. * List name and contact numbers for known caregivers / representatives who currently or will assist patient after discharge: ROYCE, SISTER IN LAW, YARELIS GARCIA, MINOR SON, FADY, FAMILY FRIEND, Yusef (Lao speaking 17 year old DTR - [phone]) Last DP export: 08/21/18 9:35 p Patient Name: BERNA GARCIA Page [id number] at 2112 All edits/amendments must be made on the electronic document DICTATION DATE: 08/22/182112 BRUSH MAKER: STEFAN 08/22/182112 RPT#: [id number] DC DATE: STATUS: ADM IN [facility] [address] [place] [address] END OF REPORT
--- NOTE | 2018-08-22 22:00 | NUR ---
PT ALERT & ORIENTED. SPEAKING FRENCH IS LIMITED. NO FAMILY IN ROOM AT THIS TIME. GAVE SCHEDULED MEDS. FSBS 171 - GAVE 2 UNITS PER SS. PULLED PT UP IN BED. NO OTHER NEEDS. COMPLETE ASSESSMENT PER FLOW-SHEET. CONTACT ISOLATION PRECAUTIONS OBSERVED. BED LOW. CALL LIGHT IN REACH.
[2018-08-23] VITALS: BP 129/74
[2018-08-23 04:00] VITALS: BP 140/73
[2018-08-23 05:34] LABS: BASOPHILS 0.3 % (0-2); EOSINOPHILS 3.6 % (0-7); HEMATOCRIT 32.2 % (36.0-48.0); HEMOGLOBIN 10.5 g/dL (12-16); IMMATURE GRANULOCYTES 0.3 % (0-5); LYMPHOCYTES 20.3 % (15-50); MCH 29.1 pg (26.0-34.0); MCHC 32.6 g/dL (31.0-37.0); MCV 89.2 fL (80.0-100.0); MEAN PLATELET VOLUME 10.6 fL (7.4-10.4); MONOCYTES 8.1 % (2-11); NEUTROPHILS 67.4 % (40-80); PLATELET COUNT 217 10x3/uL (130-400); RBC 3.61 10x6/uL (4.00-5.40); RDW 15.9 % (11.5-14.5); WBC 5.9 10x3/uL (4.8-10.8)
[2018-08-23 05:47] LABS: ALBUMIN 1.7 g/dL (3.4-5.0); ANION GAP 10.5 mmol/L (8-16); BILIRUBIN - TOTAL 0.25 mg/dL (0.2-1.3); CALCIUM 7.3 mg/dL (8.5-10.1); CREATININE - SERUM 2.6 mg/dL (0.6-1.3); POTASSIUM - SERUM 4.5 mmol/L (3.5-5.1); PROTEIN - SERUM 5.6 g/dL (6.4-8.2)
--- NOTE | 2018-08-23 08:25 | NUR ---
ALERT AND ORIENTED X 3. LUNGS CLEAR IN ALL PIEDRA BILATERALLY. HEART SOUNDS HEARD AT S1 AND S2 IN ALL PIEDRA. SKIN DRY AND INTACT. BLE PITTING EDEMA +3 NOTED. UNABLE TO ASSESS PEDAL PULSES. HR REGULAR RATE AND RHYTHM. BLOOD PRESSURE WNL. MEDICATIONS GIVEN WITHOUT DIFFICULTY. DENIES PAIN. DENIES NEEDS. REMAINS ON CONTACT ISOLATION. IV TO RIGHT HAND PATENT WITHOUT REDNESS OR S/SX INFECTION. WILL CONTINUE TO MONITOR.
[2018-08-23 08:55] VITALS: BP 144/69
--- NOTE | 2018-08-23 09:37 | MORECARE ---
CASE MANAGEMENT DISCHARGE SUMMARY PATIENT: BERNA GARCIA UNIT: [id number] ADM DATE: 07/27/18 AGE: 48 : 74 SEX: F ROOM/BED: D.2230 AUTHOR: LAURITA,DOC PHYSICIAN: REFERRING PHYSICIAN: KIN CAICEDO MD DATE OF SERVICE: 08/23/18 Discharge Plan Patient Name: BERNA GARCIA Facility: [facility]:[place] : 1970 Planned Disposition: Home Anticipated Discharge Date: Discharge Date: Expected LOS: Initial Reviewer: [email or web address] Initial Review Date: 08/03/2018 Generated: 08/23/18 10:37 am Comments DCP- Discharge Planning Updated by [id number]: Kelsie Stuart on 08/23/18 8:[address] PATIENT'S PROCESS CONTROLLER IS HERE. HE STATES THAT HE WILL PURCHASE HER MEDICATIONS FOR HER. HE ALSO STATES THAT HE HAS A WALKER AND WHEELCHAIR FOR HER. STATES THEY WILL BE ABLE TO GET THE DME NEEDED. I ALSO SPOKE TO HER ABOUT FOOD STAMPS AND SHE STATES HER SON HAS AN APPOINTMENT AT [facility]AL [facility] TO APPLY FOR FOOD STAMPS. SHE WILL BE GOING TO STAY WITH HER BROTHER IN LAW (RAJINDER). CM WILL CONTINUE TO FOLLOW AND ASSIST WITH DISCHARGE PLANNING/NEEDS. DCP- Discharge Planning Updated by [id number]: Lianne Tran on 08/22/18 8:[address] CM ALSO NOTED MICROBIOLOGY URINE CULTURE REPORT NOTING >100,000 ORG/ML FOR 2 GRAM POSTIVE GRAM NEG RODS. DISCUSSED W/ PRIMARY NURSE, MARILU , WHO CALLED PRIMARY MDTO ADDRESS ANTIBIOTIC ORDER. DCP- Discharge Planning Updated by [email or web address]: Lianne Becker on 08/22/18 8:[address] LATE ENTRY 1500 DISCHARGE ORDERS RECEIVED LATE PM. DISCUSSED WITH PRIMARY NURSE AND MAMMOGRAPHER. HAD TO ASCERTAIN COST OF MEDICATIONS AND PATIENT'S ABILITY TO OBTAIN. HAD TO CONTACT ALL CONSULTANTS REGARDING ORDERS AND FOLLOWUP. THE PATIENT LIVES ALONE IN A SMALL APARTMENT. THE PATIENT'S CHILDREN 15 AND 17 YRS OLD LIVE W/ THE PARENTAL UNCLE. SHE HAS NO PAYOR SOURCE FOR HOME HEALTH SERVICES. CANNOT ASCERTAIN IF ANY CHARITABLE HOME HEALTH SERVICES ARE AVAILABLE ON THE WEEKEND. PATIENT'S MEDICATIONS WERE CALLED TO THE PHARMACY UTILIZING THE DISCOUNT LIST AND WILL COST $155.00. THESE FUNDS ARE NOT AVAILABLE. WILL NEED TO ARRANGE FOR MEDICATION ASSIST W/ [facility] ON THE CASE MANAGEMENT CONTRACTED PHARMACY ON THURSDAY. SAFE DISCHARGE IS NOT FEASIBLE TODAY, THURSDAY. QUESTION PENDING ABOUT F/U FOR MEDICAL CARE. DISCHARGE PLANNING EFFORTS TO CONTINUE TOMORROW. DCP- Discharge Planning Updated by [id number]: Lianne Tran on 08/21/18 9:[address] LATE ENTRY 0945 SANDRA BELCHER ASK CM STATUS OF INSURANCE APPLICATION. TC TO [employer] SPOKE WITH MAZIN. PER DOCUMENTATION AN APPLICATION FOR "SPECIAL MEDICAID" IS IN PROGRESS . MEDICAL DIAGNOSIS INFORMATION RECEIVED AND HAS BEEN ADDRESSED. [employer] HAD BEEN TRYING TO REACH PATIENT'S SENIOR COMMISSARY AGENT. CM ADVISED THE SON THAT [facility] COUNSELOR NEEDED TO SPEAK WITH THE SENIOR COMMISSARY AGENT. PROVIDED CONTACT PHONE NUMBER. SPOKE WITH THE DAUGHTER AND THE SENIOR COMMISSARY AGENT THIS PM. LEFT VM MESSAGE FOR MAZIN. DCP- Discharge Planning Updated by [email or web address]: Kelsie Stuart on 08/17/18 11:[address] CM met with patient and daughter (Jeremy) in the room to discuss discharge planning. Jeremy states that in conversing with her mother that the plan is to still return to friends (Brenda) in [place]. Patient does not have any insurance so she will be unable to go to a skilled or rehab facility. I discussed possible skilled nursing placement for 30 days in a penitentiary and Jeremy states her mother does not want to do that. States she has many family members at home for support. CM will continue to follow and assist with discharge planning/needs. DCP- Discharge Planning Updated by [id number]: Kelsie Stuart on 08/13/18 1:[address] CM went to room, no family present. Patient is sleeping. I called and spoke to Ramin in [employer] and I faxed family practice and nephrology progress notes with problem list. He states he will see if she qualifies for emergency Medicaid. CM will continue to follow and assist with discharge planning/needs. DCP- Discharge Planning Updated by [id number]: Chloe Hampton on 08/06/18 3:[address] Patient Name: BERNA GARCIA Admission Status: Elective Accout number: [id number] Admission Date: 07-27-2018 : 1970 Admission Diagnosis:ACUTE POSTHEMORRHAGIC ANEMIA Attending: KIN CAICEDO Current LOS: 10 Anticipated DC Date: Planned Disposition: Home Primary Insurance: UNINSURED DISCOUNT PLAN Discharge Planning Comments: CM spoke with family that was visiting. Daughter Henrry and son Yarelis here today to visit along with other family member. The children are currently staying with an uncle Steven [phone]. They are planning on living with a friend Brenda Celeste when patient is discharged. [address] , [place] [address]. HENRRY stated that they will have family that will help care for patient once she is stable for discharge. CM will continue to follow and assist as needed with discharge planning needs. Event Technician: Chloe Hampton DCP- Discharge Planning Updated by [id number]: Chloe Hampton on 08/05/18 2:[address] Nursing staff stated that patient's cyber incident responder was here this am. He stated that the patients children are in the care of the uncle (Steven [phone])?? Nursing didn't get name or phone number of cyber incident responder or uncle. Patient is still on BiPap currently. CM will continue to follow and assist as needed with discharge planning/ needs. DCP- Discharge Planning Updated by [id number]: Chloe Hampton on 08/04/18 2:[address] CM spoke with patient nurse. She stated that patient was off BiPap for meds earlier and stated it was hard to breathe. Patient is currently back on BiPap. CM was told that patient the contact number Brenda Celeste was patients ex-husbands best friend [phone]. Patient has two minor children Henrry [phone]. (daughter) and a son Shanthi Nicole. CM also has a number for an uncle Steven [phone]. CM can't obtain verbal permission to speak to these contacts due to patients respiratory status. CM was notified to find out about status of minor children. CM also needs to find out about family support with patients needs upon discharge. Since patient is uninsured will be very difficult to find any placement. KIRSTEN was able to obtain from a nursing note that [facility] Counselor Patricio Jones [phone]. Patient Services Assistant. CM did attempted to call Patricio to see if he could possibly release any information regarding home situation. CM left message for Patricio to call back. CM will check with patient in am to see if she can give permission to speak to contacts. CM will continue to follow and assist as needed with discharge planning needs. DCP- Discharge Planning Updated by [email or web address]: Chloe Hampton on 08/03/18 4:[address] CM attempted to visit with patient regarding discharge planning/ needs. Patient currently on BiPAP no family available. CM will continue to follow and assist as needed with discharge planning / needs DCPIA - Discharge Planning Initial Assessment Updated by [email or web address]: Kelsie Stuart on 08/17/18 12:21 pm * Preadmission Environment Acute Care Facility * Facility Name [facility], [place], [place]. * List name and contact numbers for known caregivers / representatives who currently or will assist patient after discharge: ROYCE, SISTER IN LAW, YARELIS GARCIA, MINOR SON, FADY, FAMILY FRIEND, Yusef (Barbadian speaking 17 year old DTR - [phone]) Last DP export: 08/22/18 8:13 p Patient Name: BERNA GARCIA Page [id number] at 0937 All edits/amendments must be made on the electronic document DICTATION DATE: 08/23/18936 PRINCIPAL SECURITY ARCHITECT: STEFAN 08/23/18936 RPT#: [id number] DC DATE: STATUS: ADM IN [facility] [address] [place] [address] END OF REPORT
--- NOTE | 2018-08-23 10:19 | NUR ---
EDUCATED PATIENT ON DISCHARGE PAPERWORK VIA IMAGE EDITOR PHONE AND WRITTEN. PATIENT VERBALIZED UNDERSTANDING. SON AT BEDSIDE VERBALIZED UNDERSTANDING. IV TO RIGHT HAND REMOVED WITHOUT COMPLICATIONS, IV CATHETER INTACT. PUT IN WC AND TAKEN TO CAR BY PT. PT EDUCATED PATIENT ON AT HOME EXERCISES. VERBALIZED UNDERSTANDING. DENIES QUESTIONS. DISCHARGED HOME WITH SON.
--- NOTE | 2018-08-24 07:17 | MORECARE ---
CASE MANAGEMENT DISCHARGE SUMMARY PATIENT: BERNA GARCIA UNIT: [id number] ADM DATE: 07/27/18 AGE: 48 : 74 SEX: F ROOM/BED: D.2230 AUTHOR: LAURITA,DOC PHYSICIAN: REFERRING PHYSICIAN: KIN CAICEDO MD DATE OF SERVICE: 08/24/18 Discharge Plan Patient Name: BERNA GARCIA Facility: [facility]:[place] : 1970 Planned Disposition: Home Anticipated Discharge Date: Discharge Date: 08/23/2018 Expected LOS: 0 Initial Reviewer: [email or web address] Initial Review Date: 08/03/2018 Generated: 08/24/18 8:16 am Comments DCP- Discharge Planning Updated by [email or web address]: Kelsie Devihilario on 08/23/18 8:[address] PATIENT'S CARE TRANSITION MANAGER IS HERE. HE STATES THAT HE WILL PURCHASE HER MEDICATIONS FOR HER. HE ALSO STATES THAT HE HAS A WALKER AND WHEELCHAIR FOR HER. STATES THEY WILL BE ABLE TO GET THE DME NEEDED. I ALSO SPOKE TO HER ABOUT FOOD STAMPS AND SHE STATES HER SON HAS AN APPOINTMENT AT LOCAL [facility] TO APPLY FOR FOOD STAMPS. SHE WILL BE GOING TO STAY WITH HER BROTHER IN LAW (RAJINDER). CM WILL CONTINUE TO FOLLOW AND ASSIST WITH DISCHARGE PLANNING/NEEDS. DCP- Discharge Planning Updated by [id number]: Lianne Menifee on 08/22/18 8:[address] CM ALSO NOTED MICROBIOLOGY URINE CULTURE REPORT NOTING >100,000 ORG/ML FOR 2 GRAM POSTIVE GRAM NEG RODS. DISCUSSED W/ PRIMARY NURSE, MARILU , WHO CALLED PRIMARY MDTO ADDRESS ANTIBIOTIC ORDER. DCP- Discharge Planning Updated by [email or web address]: Lianne Menifee on 08/22/18 8:[address] LATE ENTRY 1500 DISCHARGE ORDERS RECEIVED LATE PM. DISCUSSED WITH PRIMARY NURSE AND SILK SOAKER. HAD TO ASCERTAIN COST OF MEDICATIONS AND PATIENT'S ABILITY TO OBTAIN. HAD TO CONTACT ALL CONSULTANTS REGARDING ORDERS AND FOLLOWUP. THE PATIENT LIVES ALONE IN A SMALL APARTMENT. THE PATIENT'S CHILDREN 15 AND 17 YRS OLD LIVE W/ THE PARENTAL UNCLE. SHE HAS NO PAYOR SOURCE FOR HOME HEALTH SERVICES. CANNOT ASCERTAIN IF ANY CHARITABLE HOME HEALTH SERVICES ARE AVAILABLE ON THE WEEKEND. PATIENT'S MEDICATIONS WERE CALLED TO THE PHARMACY UTILIZING THE DISCOUNT LIST AND WILL COST $155.00. THESE FUNDS ARE NOT AVAILABLE. WILL NEED TO ARRANGE FOR MEDICATION ASSIST W/ [facility] ON THE CASE MANAGEMENT CONTRACTED PHARMACY ON THURSDAY. SAFE DISCHARGE IS NOT FEASIBLE TODAY, THURSDAY. QUESTION PENDING ABOUT F/U FOR MEDICAL CARE. DISCHARGE PLANNING EFFORTS TO CONTINUE TOMORROW. DCP- Discharge Planning Updated by [id number]: Lianne Tran on 08/21/18 9:[address] LATE ENTRY 0945 SANDRA BELCHER ASK CM STATUS OF INSURANCE APPLICATION. TC TO [employer]. SPOKE WITH MAZIN. PER DOCUMENTATION AN APPLICATION FOR "SPECIAL MEDICAID" IS IN PROGRESS . MEDICAL DIAGNOSIS INFORMATION RECEIVED AND HAS BEEN ADDRESSED. [employer] HAD BEEN TRYING TO REACH PATIENT'S SENIOR ACCOUNTING CLERK. CM ADVISED THE SON THAT [facility] COUNSELOR NEEDED TO SPEAK WITH THE SENIOR ACCOUNTING CLERK. PROVIDED CONTACT PHONE NUMBER. SPOKE WITH THE DAUGHTER AND THE SENIOR ACCOUNTING CLERK THIS PM. LEFT VM MESSAGE FOR MAZIN. DCP- Discharge Planning Updated by [email or web address]: Kelsie Stuart on 08/17/18 11:[address] CM met with patient and daughter (Jeremy) in the room to discuss discharge planning. Jeremy states that in conversing with her mother that the plan is to still return to friends (Brenda) in [place]. Patient does not have any insurance so she will be unable to go to a skilled or rehab facility. I discussed possible care home placement for 30 days in a penitentiary and Jeremy states her mother does not want to do that. States she has many family members at home for support. CM will continue to follow and assist with discharge planning/needs. DCP- Discharge Planning Updated by [id number]: Kelsie Stuart on 08/13/18 1:[address] CM went to room, no family present. Patient is sleeping. I called and spoke to Ramin in [employer] and I faxed family practice and nephrology progress notes with problem list. He states he will see if she qualifies for emergency Medicaid. CM will continue to follow and assist with discharge planning/needs. DCP- Discharge Planning Updated by [id number]: Chloe Hampton on 08/06/18 3:[address] Patient Name: BERNA GARCIA Admission Status: Elective Accout number: [id number] Admission Date: 07-27-2018 : 1970 Admission Diagnosis:ACUTE POSTHEMORRHAGIC ANEMIA Attending: KIN CAICEDO Current LOS: 10 Anticipated DC Date: Planned Disposition: Home Primary Insurance: UNINSURED DISCOUNT PLAN Discharge Planning Comments: CM spoke with family that was visiting. Daughter Henrry and son Yarelis here today to visit along with other family member. The children are currently staying with an uncle Steven [phone]. They are planning on living with a friend Brenda Celeste when patient is discharged. [address] , [place] [address]. HENRRY stated that they will have family that will help care for patient once she is stable for discharge. CM will continue to follow and assist as needed with discharge planning needs. Cutch Cleaner: Chloe Hampton DCP- Discharge Planning Updated by [id number]: Chloe Hampton on 08/05/18 2:[address] Nursing staff stated that patient's tape control skin or spar mill operator was here this am. He stated that the patients children are in the care of the uncle (Steven [phone])?? Nursing didn't get name or phone number of tape control skin or spar mill operator or uncle. Patient is still on BiPap currently. CM will continue to follow and assist as needed with discharge planning/ needs. DCP- Discharge Planning Updated by [email or web address]: Chloe Hampton on 08/04/18 2:[address] CM spoke with patient nurse. She stated that patient was off BiPap for meds earlier and stated it was hard to breathe. Patient is currently back on BiPap. CM was told that patient the contact number Brenda Celeste was patients ex-husbands best friend [phone]. Patient has two minor children Henrry [phone]. (daughter) and a son Shanthi Nicole. CM also has a number for an uncle Steven [phone]. CM can't obtain verbal permission to speak to these contacts due to patients respiratory status. CM was notified to find out about status of minor children. CM also needs to find out about family support with patients needs upon discharge. Since patient is uninsured will be very difficult to find any placement. KIRSTEN was able to obtain from a nursing note that [facility] Counselor Patricio Jones [phone]. Cso. CM did attempted to call Patricio to see if he could possibly release any information regarding home situation. CM left message for Patricio to call back. CM will check with patient in am to see if she can give permission to speak to contacts. CM will continue to follow and assist as needed with discharge planning needs. DCP- Discharge Planning Updated by [email or web address]: Chloe Hampton on 08/03/18 4:[address] CM attempted to visit with patient regarding discharge planning/ needs. Patient currently on BiPAP no family available. CM will continue to follow and assist as needed with discharge planning / needs DCPIA - Discharge Planning Initial Assessment Updated by [email or web address]: Kelsie Stuart on 08/17/18 12:21 pm * Preadmission Environment Acute Care Facility * Facility Name [facility], [place], [place]. * List name and contact numbers for known caregivers / representatives who currently or will assist patient after discharge: ROYCE, SISTER IN LAW, YARELIS GARCIA, MINOR SON, FADY, FAMILY FRIEND, Yusef (Dutch speaking 17 year old DTR - [phone]) Last DP export: 08/23/18 8:37 a Patient Name: BERNA GARCIA Page [id number] at 0717 All edits/amendments must be made on the electronic document DICTATION DATE: 08/24/18715 SHADE CLOTH FINISHER: STEFAN 08/24/18715 RPT#: [id number] DC DATE:08/23/18 STATUS: DIS IN [facility] [address] [place] [address] END OF REPORT
[2018-08-24 10:19] LABS: FUNGUS MYCOLOGY CULTURE Preliminary report (())
[2018-08-25 12:16] LABS: CORTISOL FREE - 24HR 9 ug/24 hr (6-42); CORTISOL FREE - UR 17 ug/L (Undefined)
== END 2018-08-23 10:15 | disposition home or self-care (01) | DRG 70 ==
LOC: D.M2 20:02 → D.MS 22:52 → D.ICU 22:52 → D.M2 22:52 → D.ICU 07-30 20:38 → D.MS 08-08 18:36
PROVIDERS: Emergency Medicine; Internal Medicine Gastroenterology; Internal Medicine Hematology & Oncology; Internal Medicine Nephrology; Internal Medicine Pulmonary Disease; Legal Medicine; Specialist; ADMIT Internal Medicine Nephrology; ATTEND Internal Medicine Nephrology
PROC: 5A09357 Assistance with Respiratory Ventilation, Less than 24 Consecutive Hours, Continuous Positive Airway Pressure (ICD-10-PCS; principal; 2018-08-03)
DX: G93.41 Metabolic encephalopathy (principal); R53.2 Functional quadriplegia; R40.2213 Coma scale, best verbal response, none, at hospital admission; R40.2343 Coma scale, best motor response, flexion withdrawal, at hospital admission; J96.01 Acute respiratory failure with hypoxia; I50.33 Acute on chronic diastolic (congestive) heart failure; J96.02 Acute respiratory failure with hypercapnia; K26.4 Chronic or unspecified duodenal ulcer with hemorrhage; D62 Acute posthemorrhagic anemia; E87.1 Hypo-osmolality and hyponatremia; N17.9 Acute kidney failure, unspecified; E87.0 Hyperosmolality and hypernatremia; E11.22 Type 2 diabetes mellitus with diabetic chronic kidney disease; N18.9 Chronic kidney disease, unspecified; E87.5 Hyperkalemia; R40.2143 Coma scale, eyes open, spontaneous, at hospital admission; F32.9 Major depressive disorder, single episode, unspecified; H54.8 Legal blindness, as defined in USA; N30.90 Cystitis, unspecified without hematuria; B96.5 Pseudomonas (aeruginosa) (mallei) (pseudomallei) as the cause of diseases classified elsewhere